=== PATIENT | male | born 1955 | race Caucasian/White ===

== ENCOUNTER 2017-04-07 10:52 | Inpatient (IN) | payer MEDICARE, MEDICAID ==
[2017-04-07] VITALS (7 sets, daily range): BP systolic 117–159; BP diastolic 65–87; PULSE 83–95; RESP 17–22; TEMP 97.8–98.5; O2SAT 96–100
[~2017-04-07] VITALS: Ht 175.3 cm; Wt 141.7 kg
[~2017-04-07 10:52] MED LIST: BUPR-197 PO; CYAN1000P SC; DUONI NEB; KCL20 PO; LEVO.025 PO; LORA-474 PO; LORTA5 PO; NIFE1TAB85 PO; PROT40TA PO
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
[2017-04-07] MEDS ORDERED: SODIUM CHLOR 0.9% 1000 ML INJ 1,000 ML IV ONE (11:30)
[2017-04-07 12:03] LABS: AUTOMATED NEUTROPHIL # 4.8 TH/MM3 (1.8-7.7); BASOPHIL % 0.6 % (0.0-2.0); EOSINOPHIL # 0.1 TH/MM3 (0-0.4); EOSINOPHIL % 2.2 % (0.0-4.0); HEMATOCRIT 44.4 % (39.0-51.0); HEMO FLAGS DIFF FINAL; LYMPH % 15.8 % (9.0-44.0); LYMPHOCYTE # 1.1 TH/MM3 (1.0-4.8); MEAN CELL VOLUME 94.9 FL (80.0-100.0); MEAN CORPUSCULAR HEMOGLOBIN 31.6 PG (27.0-34.0); MEAN CORPUSCULAR HGB CONC 33.3 % (32.0-36.0); MONO % 10.1 % (0.0-8.0); NEUT % 71.3 % (16.0-70.0); PLATELET COUNT 275 TH/MM3 (150-450); RED BLOOD COUNT 4.68 MIL/MM3 (4.50-5.90); RED CELL DISTRIBUTION WIDTH 17.3 % (11.6-17.2); WHITE BLOOD COUNT 6.7 TH/MM3 (4.0-11.0)
--- NOTE | 2017-04-07 12:10 | RADRPT ---
EXAM DATE/TIME: 04/07/2017 11:38 [facility] COMPARISON: CHEST SINGLE AP, July 08, 2015, 7:57. INDICATIONS : Syncope, short of breath. MEDICAL HISTORY : None. SURGICAL HISTORY : None. ENCOUNTER: Initial ACUITY: 1 day PAIN SCORE: 0/10 LOCATION: Bilateral chest FINDINGS: A single view of the chest demonstrates the lungs to be symmetrically aerated without evidence of mas s, infiltrate or effusion. The cardiomediastinal contours are unremarkable. Osseous structures are intact. CONCLUSION: Normal examination. Kenrick Eaton MD on April 07, 2017 at 12:08 Board Certified Radiologist. This report was verified electronically.
[2017-04-07 12:11] LABS: BACTERIA, URINE RARE /hpf; BLOOD, URINE NEG (NEG); COMMENT (UR) CATH-CULTURE IND; CULTURE IF INDICATED CATH CULTURE IND; GLUCOSE,URINE NEG (NEG); HYALINE CAST, URINE 9 /lpf (RARE); KETONE, URINE NEG (NEG); MUCUS URINE FEW /lpf (OCC); NITRITE,URINE NEG (NEG); SQUAMOUS EPITHELIAL CELL URINE <1 /hpf (0-5); URINE COLOR LIGHT-YELLOW (YELLW/STRAW)
[2017-04-07 12:14] LABS: APTT (PATIENT) 35.2 SEC (24.3-30.1); INTERNATIONAL NORMALIZED RATIO 1.1 RATIO; PROTHROMBIN TIME - PATIENT 12.4 SEC (9.8-11.6)
[2017-04-07 12:19] LABS: ANION GAP 8 MEQ/L (5-15); AST (GOT) 13 U/L (15-37); BICARBONATE 24.1 MEQ/L (21.0-32.0); BLOOD UREA NITROGEN 8 MG/DL (7-18); CHLORIDE 110 MEQ/L (98-107); GLOMERULAR FILTRATION RATE 95 ML/MIN (>89); MAGNESIUM 2.1 MG/DL (1.5-2.5); POTASSIUM 4.3 MEQ/L (3.5-5.1); SODIUM (NA) 142 MEQ/L (136-145)
[2017-04-07 12:20] LABS: ALT (GPT) 11 U/L (12-78)
[2017-04-07 12:24] LABS: ALKALINE PHOSPHATASE 146 U/L (45-117); TOTAL BILIRUBIN ADULT 0.2 MG/DL (0.2-1.0)
[2017-04-07 12:25] LABS: CREATINE KINASE 81 U/L (39-308)
[2017-04-07] MEDS ORDERED: NORC5TAB PO (12:49)
[2017-04-07] MEDS ORDERED: SYNT25TA PO (12:49)
[2017-04-07] MEDS ORDERED: WELL200T PO (12:49)
[2017-04-07] MEDS ORDERED: VANCOMYCIN INJ 1,000 MG in SODIUM CHLOR 0.9% 250 ML INJ 250 ML IV ONE (13:30)
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
[2017-04-07] MEDS ORDERED: ONDANSETRON HCL 4 MG/2 ML VIAL IVP PRN (15:00)
[2017-04-07] MEDS ORDERED: NALOXONE HCL 0.4 MG/ML AMP IV PUSH PRN (15:00)
[2017-04-07] MEDS ORDERED: LORazepam 2 MG/ML VIAL IV PUSH PRN ×4 (15:15)
[2017-04-07] MEDS ORDERED: FLUMAZENIL 0.5 MG/5 ML VIAL IV PUSH PRN (15:15)
[2017-04-07] MEDS ORDERED: HALOPERIDOL LACTATE 5 MG/ML AMP IM PRN (15:15)
[2017-04-07] MEDS ORDERED: LORazepam 2 MG TAB PO PRN (15:15)
[2017-04-07] MEDS ORDERED: LORazepam 1 MG TAB PO PRN (15:15)
[2017-04-07] MEDS ORDERED: LACTULOSE SYRUP 20 GM/30 ML CUP PO PRN (16:00)
[2017-04-07] MEDS ORDERED: BISACODYL 10 MG SUPP RECTAL PRN (16:00)
[2017-04-07] MEDS ORDERED: NYSTATIN 100,000 U/GM PWD 15 GM BTL TOPICAL ONE (17:30)
--- NOTE | 2017-04-07 17:53 | PD.WCN.NOT ---
Wound Consult Description: Received consult from Doctor Chandra for wound management of Lower extremity Communicated with: VICENTA Wright pod and call placed to Doctor Chandra for orders Recommendation: Please cleanse wounds to L lower extremity with normal saline or wound cleanser and apply optifoam gentle AG over wound beds and secure with rolled gauze and tape. Change dressing every 3 days or PRN if saturated or dislodged. May need podiatry consult for unstable appearing eschar to L medial ankle. Please elevate BLE Additional Information: Patient seen for evaluation of wound management for lower extremity around 1630.Patient laying on stretcher for wound assessment. Blue suzanne is noted under patient's L leg with minimal serous drainage. L medial lower leg wound assessed with jagged poorly defined wound margins. Wound appears partial thickness with minimal serous drainage that has mild odor.Wound measures 5.2 cm x 2cm x ~<0.1cm. Periwound is noted with erythema, edema and heat. L medial ankle wound presents with ~90% covered of thin black eschar. and ~10% pink tissue, wound has minimal sero-sanguinous drainage that has mild odor. Periwound also presents with erythema, heat, and edema. Wound measures 1cm x 2.7cm x eschar. L pettit wound presents with partial thickness skin loss and measures ~1cm x ~ 0.5cm x ~<0.1cm . Minimal serous drainage is noted from wound that is without odor. Periwound is unremarkable. Cleansed all open wounds with normal saline and applied gently adhesive foam dressing with AG over L medial ankle and L medial lower leg wounds. Applied dry 4 x4 gauze pad over L pettit wound and secured dressings with rolled gauze and tape. Recommendations are noted above. J[facility]ing [facility] Apr 07, 2017 17:53
[2017-04-07 20:36] LABS: FREE T4 0.8 NG/DL (0.76-1.46)
[2017-04-07] MEDS ORDERED: MAGNESIUM HYDROXIDE SUSP 30 ML CUP PO PRN (21:00)
[2017-04-07] MEDS ORDERED: SENNOSIDES 8.6 MG TAB PO PRN (21:00)
[2017-04-07] MEDS: HEPARIN SODIUM - SQ 10,000 UNITS/ML VIAL SQ SCH (21:18)
[2017-04-07] MEDS: NYSTATIN 100,000 U/GM PWD 15 GM BTL TOPICAL SCH (21:18)
[2017-04-07] MEDS: DOCUSATE SODIUM 50 MG/SENNA 8.6 MG TAB PO SCH (21:18)
[2017-04-08] MEDS: ACETAMINOPHEN 325 MG TAB PO PRN ×2 (00:03→09:14)
[2017-04-08 03:36] VITALS: BP 136/76; PULSE 76; RESP 18; TEMP 97.8; O2SAT 98
[2017-04-08 04:27] LABS: AUTOMATED NEUTROPHIL # 5.2 TH/MM3 (1.8-7.7); BASOPHIL # 0.1 TH/MM3 (0-0.2); BASOPHIL % 0.8 % (0.0-2.0); EOSINOPHIL # 0.1 TH/MM3 (0-0.4); EOSINOPHIL % 2.1 % (0.0-4.0); HEMO FLAGS DIFF FINAL; LYMPH % 12.4 % (9.0-44.0); LYMPHOCYTE # 0.9 TH/MM3 (1.0-4.8); MEAN CELL VOLUME 94.9 FL (80.0-100.0); MEAN CORPUSCULAR HEMOGLOBIN 32.5 PG (27.0-34.0); MEAN CORPUSCULAR HGB CONC 34.2 % (32.0-36.0); MONO % 12.1 % (0.0-8.0); NEUT % 72.6 % (16.0-70.0); PLATELET COUNT 221 TH/MM3 (150-450); RED BLOOD COUNT 4.11 MIL/MM3 (4.50-5.90); RED CELL DISTRIBUTION WIDTH 16.9 % (11.6-17.2); WHITE BLOOD COUNT 7.1 TH/MM3 (4.0-11.0)
[2017-04-08 04:51] LABS: BICARBONATE 24.7 MEQ/L (21.0-32.0); POTASSIUM 3.8 MEQ/L (3.5-5.1)
[2017-04-08] MEDS: HEPARIN SODIUM - SQ 10,000 UNITS/ML VIAL SQ SCH ×3 (05:58→22:03)
[2017-04-08] MEDS: NYSTATIN 100,000 U/GM PWD 15 GM BTL TOPICAL SCH ×3 (05:58→22:00)
[2017-04-08 08:09] VITALS: O2SAT 100
[2017-04-08] MEDS: FOLIC ACID 1 MG TAB PO SCH (09:00)
[2017-04-08] MEDS: DOCUSATE SODIUM 50 MG/SENNA 8.6 MG TAB PO SCH ×2 (09:00→19:59)
[2017-04-08] MEDS: MULTIVITAMINS/MINERALS THERAPEUTIC TAB PO SCH (09:00)
[2017-04-08] MEDS: THIAMINE HCL 100 MG TAB PO SCH (09:13)
[2017-04-08 09:31] LABS: CALCIUM-PROTEIN CORRECTED 8.7 MG/DL (8.5-10.1)
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
--- NOTE | 2017-04-08 10:50 | RADRPT ---
EXAM DATE/TIME: 04/08/2017 08:03 [facility] COMPARISON: No previous studies available for comparison. INDICATIONS : Left ankle swelling. MEDICAL HISTORY : None. SURGICAL HISTORY : None. ENCOUNTER: Initial ACUITY: 1 day PAIN SCORE: 3/10 LOCATION: Left ankle FINDINGS: There is severe diffuse soft tissue thickening. Numerous soft tissue calcifications throughout the l ower leg region, some are oval with lucent centers and appearance are punctate. Osseous structures a re in normal alignment. No evidence of fracture or dislocation. Large plantar calcaneal spur. Esthela rial calcifications. CONCLUSION: 1. Prominent soft tissue swelling and diffuse soft tissue calcifications. 2. The osseous structures are intact. Hans Etienne MD on April 08, 2017 at 10:17 Board Certified Radiologist. This report was verified electronically.
--- NOTE | 2017-04-08 10:50 | EKG ---
Date Performed: 04/07/2017 Time Performed: 11:33:42 PTAGE: 61 years EKG: Sinus rhythm MODERATE VOLTAGE CRITERIA FOR LVH, CONSIDER NORMAL VARIANT BORDERLINE ECG INTERPRETATION BASED ON A DEFAULT AGE OF 40 YEARS PREVIOUS TRACING : 06/30/2015 11.06 DOCTOR: Giuliano Gonzalez Interpretating Date/Time 04/08/2017 10:48:29
[2017-04-08 11:58] VITALS: BP 138/77; PULSE 74; RESP 18; TEMP 98; O2SAT 96
--- NOTE | 2017-04-08 13:39 | RADRPT ---
EXAM DATE/TIME: 04/08/2017 12:47 [place] COMPARISON: No previous studies available for comparison. INDICATIONS : Bilateral leg swelling. MEDICAL HISTORY : Hypercholesterolemia. Hypertension. Sleep apnea. Arthritis. Depression. Anxiety. SURGICAL HISTORY : Nail left femur and hip pin. ENCOUNTER: Initial ACUITY: >1 year PAIN SCORE: 5/10 LOCATION: Bilateral legs. TECHNIQUE: Venous ultrasound of the left and right leg was performed from the inguinal ligament to the proximal calf. Real-time, color Doppler and spectral tracing, compression and augmentation techniques were us ed. FINDINGS: RIGHT LEG: There is normal compressibility of the deep venous system from the inguinal region to the proximal ca lf. No echogenic clot is seen in the lumen of the common femoral, femoral, popliteal, and posterior tibial veins. There is a normal response of the venous system to proximal and distal augmentation an d respiration. LEFT LEG: There is normal compressibility of the deep venous system from the inguinal region to the proximal ca lf. No echogenic clot is seen in the lumen of the common femoral, femoral, popliteal, and posterior tibial veins. There is a normal response of the venous system to proximal and distal augmentation an d respiration. CONCLUSION: The study is negative for deep venous thrombosis bilateral lower extremity. Hans Etienne MD on April 08, 2017 at 13:37 Board Certified Radiologist. This report was verified electronically.
--- NOTE | 2017-04-08 13:54 | PD.PSY.CON ---
Provisional Diagnosis Admission Date Apr 07, 2017 at 14:24 Kendall I. Adjustment disorder with depression versus major depressive disorder, first episode, severe without psycho Kendall II. Deferred Kendall III. Morbid obesity, hypertension, cellulitis History of Present Illness Service Psychiatry Consult Requested By ER team Reason for Consult Depression Primary Care Physician No Primary Care Physician HPI The patient is a 61-year-old obese man, domiciled alone in [facility] , recently , supported by [facility], without no previous psychiatric history, no previous psychiatric hospitalizations, no previous suicidal attempts, medical history of morbid obesity, alcohol abuse, hypothyroidism, chronic lower extremity edema, MU noncompliant with CPAP, gastric bypass, presents after a fall with weakness. The patient reports he was previously at [facility] 2 months ago but is now living at home alone. He states this morning he fell down on his knees then "crumbled" down to the floor on his buttocks. He was unable to ambulate off the floor. He denies hitting his head or any loss of consciousness. Denies any lightheadedness, dizziness, chest pain, palpitations, or shortness of breath prior to the episode. He called his mom who lives next door and then called 911. He denies any specific injuries or pain. He states he normally can ambulate with a walker. He admits he has not been able take care of himself lately. He reports increasing lower extremity edema worse than his baseline. Denies any history of CHF or CAD. He does not take any diuretics or wear compression stockings. He denies seeing any microfilm processor in the past. He states he hasn't been taking any medications in 2 months since he's been discharged from the senior care. He agrees he likely needs SNF placement. Consulted to psychiatry due to symptomatology of depression. Psychiatric evaluation patient is irritable, demanding, he stated that he doesn't trust the nurses here, he feels disrespected, he doesn't like the staff of the hospital in general. Patient reports symptoms of depression for the last 3 months. He says that he went to a very hard process of divorce, his life has been deteriorating, and he has been feeling progressively and increasingly depressed with the days. Patient reports sensation of hopelessness, helplessness, he is no enjoying his usual enjoyable activities, he feels worthless, he has an increased sensitivity to rejection and frustration, frequent mood swings, but the most important and frequent suicidal thoughts, but not specific plan. He says that he doesn't want to and he does want to kill himself. He says that he has a daughter that he love and he doesn't want that his legacy is a suicide, but he feels very overwhelmed and he doesn't know what to do. Patient is willing to accept treatment for depression inpatient if possible. He contracted for safety in the hospital. He denies visual and auditory hallucinations. He is fully oriented 3, no attention deficit, no fluctuation of consciousness, no gross cognitive impairment present. Reports almost daily use of alcohol, usually 1 or 2 cups of wine, but he denies the use of illegal drugs. Review of Systems Constitutional: DENIES: Diaphoretic episodes, Fatigue, Fever, Weight gain, Weight loss, Chills, Dizziness, Change in appetite, Night Sweats Endocrine: DENIES: Heat/cold intolerance, Polydipsia, Polyuria, Polyphagia Ears, nose, mouth, throat: DENIES: Tinnitus, Hearing loss, Vertigo, Nasal discharge, Oral lesions, Throat pain, Hoarseness, Ear Pain, Running Nose, Epistaxis, Sinus Pain, Toothache, Odynophagia Respiratory: DENIES: Apneas, Cough, Snoring, Wheezing, Hemoptysis, Sputum production, Shortness of breath Cardiovascular: DENIES: Chest pain, Palpitations, Syncope, Dyspnea on Exertion , PND, Lower Extremity Edema, Orthopnea, Claudication Gastrointestinal: DENIES: Abdominal pain, Black stools, Bloody stools, Constipation, Diarrhea, Nausea, Vomiting, Difficulty Swallowing, Anorexia Genitourinary: DENIES: Sexual dysfunction, Urinary frequency, Urinary incontinence, Urgency, Hematuria, Dysuria, Nocturia, Penile Discharge, Testicular Pain, Testicular Swelling Musculoskeletal: DENIES: Joint pain, Muscle aches, Stiffness, Joint Swelling, Back pain, Neck pain Integumentary: DENIES: Abnormal pigmentation, Nail changes, Pruritus, Rash Hematologic/lymphatic: DENIES: Bruising, Lymphadenopathy Immunologic/allergic: DENIES: Eczema, Urticaria Neurologic: DENIES: Abnormal gait, Headache, Localized weakness, Paresthesias, Seizures, Speech Problems, Tremor, Poor Balance Psychiatric: COMPLAINS OF: Mood changes, Depression, DENIES: Anxiety, Confusion , Hallucinations, Agitation, Suicidal Ideation, Homicidal Ideation, Delusions Past Family Social History Coded Allergies: No Known Allergies (Verified Allergy, Unknown, 04/07/17) Reported Medications Levothyroxine (Synthroid) 25 Mcg Tab, 25 MCG PO DAILY for Thyroid, #30 TAB 0 Refills 04/07/17 Hydrocodone-Acetaminophen ([place]) 5 Mg-325 Mg Tab, 1 TAB PO Q6H Y for PAIN, TAB 0 Refills 04/07/17 Bupropion HCl ER 12 HR (Wellbutrin SR 12 HR) 200 Mg Tab, 200 MG PO Q12HR for Control Depression, TAB 0 Refills 04/07/17 Current Medications Medications (Trade) Dose Ordered Sig/Ezequiel Route Start Time Stop Time Status Last Admin (Tylenol) 650 mg Q4H PRN PO 04/07/17 15:00 04/08/17 09:14 (Zofran Inj) 4 mg Q6H PRN IVP 04/07/17 15:00 (Heparin Inj) 5,000 units Q8HR SQ 04/07/17 22:00 04/08/17 13:46 (Narcan Inj) 0.4 mg UNSCH PRN IV PUSH 04/07/17 15:00 (Celeste-Colace) 1 tab BID PO 04/07/17 21:00 04/08/17 09:00 (Milk Of Magnesia Liq) 30 ml Q12HR PRN PO 04/07/17 21:00 (Senokot) 17.2 mg Q12HR PRN PO 04/07/17 21:00 (Dulcolax Supp) 10 mg DAILY PRN RECTAL 04/07/17 16:00 (Lactulose Liq) 30 ml DAILY PRN PO 04/07/17 16:00 (Folate) 1 mg DAILY PO 04/08/17 09:00 04/13/17 08:59 04/08/17 09:00 (Vitamin B1) 100 mg DAILY PO 04/08/17 09:00 04/08/17 09:13 (Theragran M Tab) 1 tab DAILY PO 04/08/17 09:00 04/13/17 08:59 04/08/17 09:00 (Romazicon Inj) 0.2 mg Q1M PRN IV PUSH 04/07/17 15:15 (Ativan) 1 mg Q4H PRN PO 04/07/17 15:15 (Ativan Inj) 1 mg Q4H PRN IV PUSH 04/07/17 15:15 (Ativan) 2 mg Q2H PRN PO 04/07/17 15:15 (Ativan Inj) 2 mg Q2H PRN IV PUSH 04/07/17 15:15 (Ativan Inj) 2 mg Q1H PRN IV PUSH 04/07/17 15:15 (Ativan Inj) 2 mg Q15M PRN IV PUSH 04/07/17 15:15 (Haldol Inj) 2 mg Q15M PRN IM 04/07/17 15:15 (Mycostatin Powder) 1 applic Q8HR TOPICAL 04/07/17 22:00 04/08/17 13:46 (Sensi-Care Protective Barrier Oint) 1 applic DAILY TOPICAL 04/08/17 21:00 Pharmacy Profile Note 0 ml @ 0 mls/hr UNSCH OTHER 04/08/17 14:00 UNV Vancomycin HCl 2250 mg/Sodium Chloride 522.5 ml @ 250 mls/hr Q12H IV 04/08/17 14:00 UNV Piperacillin Sod/ Tazobactam Sod 100 ml @ 200 mls/hr Q6H IV 04/08/17 14:00 UNV Family Psych History He denies family psychiatric history Social History Patient was born and raised in [place], he lives in [facility], his recent divorce, unemployed, on SSI, highest level of education is some college, 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 2) No previous psychiatric history Physical Exam He s obese, hypoactive, but no withdrawal, no EPS, no stiffness present, he walks with a walker Vital Signs Vital Signs Date Time Temp Pulse Resp B/P (MAP) Pulse Ox O2 Delivery O2 Flow Rate FiO2 04/08/17 11:58 98.0 74 18 138/77 (97) 96 04/08/17 08:09 21 04/07/17 12:30 Room Air Lab Results Test 04/07/17 19:39 04/08/17 03:41 Erythrocyte Sedimentation Rate 34 mm/hr C-Reactive Protein 5.20 MG/DL Free Thyroxine 0.80 NG/DL Thyroid Stimulating Hormone 3rd Gen 1.860 uIU/ML White Blood Count 7.1 TH/MM3 Red Blood Count 4.11 MIL/MM3 Hemoglobin 13.4 GM/DL Hematocrit 39.0 % Mean Corpuscular Volume 94.9 FL Mean Corpuscular Hemoglobin 32.5 PG Mean Corpuscular Hemoglobin Concent 34.2 % Red Cell Distribution Width 16.9 % Platelet Count 221 TH/MM3 Mean Platelet Volume 6.7 FL Neutrophils (%) (Auto) 72.6 % Lymphocytes (%) (Auto) 12.4 % Monocytes (%) (Auto) 12.1 % Eosinophils (%) (Auto) 2.1 % Basophils (%) (Auto) 0.8 % Neutrophils # (Auto) 5.2 TH/MM3 Lymphocytes # (Auto) 0.9 TH/MM3 Monocytes # (Auto) 0.9 TH/MM3 Eosinophils # (Auto) 0.1 TH/MM3 Basophils # (Auto) 0.1 TH/MM3 CBC Comment DIFF FINAL Differential Comment Blood Urea Nitrogen 11 MG/DL Creatinine 0.67 MG/DL Random Glucose 90 MG/DL Calcium Level 7.9 MG/DL Sodium Level 143 MEQ/L Potassium Level 3.8 MEQ/L Chloride Level 112 MEQ/L Carbon Dioxide Level 24.7 MEQ/L Anion Gap 6 MEQ/L Estimat Glomerular Filtration Rate 121 ML/MIN Protein Corrected Calcium 8.7 MG/DL Total Protein 5.9 GM/DL Date/Time Source Procedure Growth Status 04/07/17 11:36 Blood Peripheral Aerobic Blood Culture - Preliminary NO GROWTH IN 1 DAY Resulted 04/07/17 11:36 Blood Peripheral Anaerobic Blood Culture - Preliminary NO GROWTH IN 1 DAY Resulted 04/07/17 11:30 Urine Catheterized Urine Urine Culture - Preliminary NO GROWTH IN 24 HOURS. Resulted Mental Status Examination Appearance: Appropriate Consciousness: Alert Orientation: x4 Motor Activity: Normal gait Speech: Unremarkable Language: Adequate Fund of Knowledge: Adequate Attention and Concentration: Adequate Memory: Unremarkable Mood: Sad, Irritable Affect: Sad Thought Process & Associations: Intact Thought Content: Appropriate Hallucination Type: None Delusion Type: None Suicidal Ideation: Yes Suicidal Plan: No Suicidal Intention: No Homicidal Ideation: No Homicidal Plan: No Homicidal Intention: No Insight: Adequate Judgment: Adequate Assessment & Plan Problem List: (1) Adjustment disorder with depressed mood ICD Codes: F43.21 - Adjustment disorder with depressed mood Assessment & Plan: Patient presents with symptomatology of depression for about 3 months in the context of recent with his and medical deterioration. He reports increased anhedonia, hopelessness, helplessness, lack of motivation, no enjoying usually enjoyable activities, poor concentration and energy, decrease to sleep at night, suicidal ideation without a specific plan. Patient was able to contract for safety in the ER. Patient is willing to be admitted in psychiatry voluntarily for treatment of depression. I will start trazodone 50 mg at bedtime to help with depression and insomnia. CIWA protocol. Brief supportive psychotherapy provided. No collateral information available at this moment. Case discussed with nurse in charge. Transfer to psychiatry, med psych unit. Assessment & Plan Estimated LOS: Conrad Michael MD Apr 08, 2017 13:54
--- NOTE | 2017-04-08 13:55 | HHI.PR ---
Subjective Remarks Feeling extremely tired and sad he asked for psychiatry to see him I also discussed with the podiatry afebrile Objective Vitals Vital Signs Date Time Temp Pulse Resp B/P (MAP) Pulse Ox O2 Delivery O2 Flow Rate FiO2 04/08/17 11:58 98.0 74 18 138/77 (97) 96 04/08/17 11:55 20 04/08/17 08:09 100 21 04/08/17 03:36 97.8 76 18 136/76 (96) 98 04/07/17 23:56 98.5 87 19 140/67 (91) 96 04/07/17 19:45 98.3 95 19 159/86 (110) 98 04/07/17 16:45 98.4 84 22 117/65 (82) 97 04/07/17 16:00 97.8 81 18 138/82 (100) 100 I/O 04/07/17 04/07/17 04/07/17 04/08/17 04/08/17 04/08/17 07:00 15:00 23:00 07:00 15:00 23:00 Intake Total 1550 ml Balance 1550 ml Intake Oral 300 ml IV Total 1250 ml # Voids 1 # Bowel Movements 0 Result Diagram: 04/08/1734004/08/17340 Objective Remarks GENERAL: Well-nourished, well-developed morbidly obese middle aged unkempt appearing male patient in [facility]. SKIN: Warm and dry. No rash. HEAD: Normocephalic. Atraumatic. EYES: Pupils equal and round. No scleral icterus. No injection or drainage. ENT: No nasal bleeding or discharge. Mucous membranes dry. Poor oral/dental hygiene. NECK: Supple. Trachea midline. CARDIOVASCULAR: Regular rate and rhythm. S1, S2 noted. No murmur appreciated. RESPIRATORY: No accessory muscle use. Clear to auscultation. Breath sounds equal bilaterally. GASTROINTESTINAL: Abdomen soft, non-tender, nondistended. Normoactive bowel sounds x4. MUSCULOSKELETAL: No obvious deformities. 3+ BLE edema with chronic venous stasis dermatitis, mild erythema. NEUROLOGICAL: Awake and alert. No obvious cranial nerve deficits. Motor grossly within normal limits. Moving all extremities spontaneously, generalized lower extremity weakness. Normal speech. PSYCHIATRIC: Appropriate mood and affect; insight and judgment normal. A/P Problem List: (1) Falls ICD Code: W19.XXXA - Unspecified fall, initial encounter Status: Acute (2) General weakness ICD Code: R53.1 - Weakness Status: Acute Assessment and Plan 61-year-old male with history of morbid obesity, alcohol abuse, hypothyroidism, depression, chronic lower extremity edema, MU noncompliant with CPAP, gastric bypass, presents after a fall with weakness. Fall, Generalized Weakness, Inability to Care for Self: suspect multifactorial with chronic deconditioning, alcohol abuse, extensive BLE edema, morbid obesity. CXR images reviewed, no acute findings. -Consult PT/OT -patient found in urine/feces, extremely poor hygiene, likely needs placement -case management consulted Chronic Venous Stasis Dermatitis: possible cellulitis reported by ER, s/p IV Vanco x1, however clinically no significant signs of cellulitis, afebrile, no leukocytosis -Reviewed ESR/CRP, elevated -We'll start broad coverage with Zosyn and Vanco -apply isabel hose -Wound care and podiatry consultation appreciated, I discussed with Dr. Montgomery recommended vascular study and antibiotic coverage Morbid Obesity: Patient weighs 150kg, BMI 48.8. Patient is already s/p bariatric surgery with gastric bypass. -counseled on weight reduction -heart healthy diet Hypothyroidism: has not been taking Synthroid x2 months. -TSH WNL -restart Synthroid if indicated Alcohol Abuse: patient reports drinking 1 L of wine nightly -counseled on cessation -start on thiamine/folate/MV -CIWA protocol with ativan prn -seizure precautions DVT Prophylaxis: Heparin SQ, Vivien Celaya MD Apr 08, 2017 13:55
[2017-04-08] MEDS ORDERED: VANCOMYCIN INJ 2,250 MG in SODIUM CHLORID 0.9% 500 ML INJ 500 ML IV SCH (14:00)
[2017-04-08] MEDS: PIPERACIL-TAZO 4.5 GM PREMIX 100 ML IV SCH ×2 (14:00→20:00)
[2017-04-08] MEDS ORDERED: Vancomycin Consult Pharmacy 1 EA OTHER SCH (14:00)
[2017-04-08 16:41] VITALS: BP 167/93; PULSE 91; RESP 20; TEMP 98.5
[2017-04-08] MEDS ORDERED: LORazepam 2 MG/ML VIAL IM PRN (16:45)
[2017-04-08] MEDS ORDERED: MAGNESIUM HYDROXIDE SUSP 30 ML CUP PO PRN (16:45)
[2017-04-08] MEDS ORDERED: ALUMINUM/MAGNESIUM/SIMETH 30 ML CUP PO PRN (16:45)
[2017-04-08] MEDS ORDERED: LORazepam 2 MG TAB PO PRN (17:00)
[2017-04-08] MEDS ORDERED: FLUMAZENIL 0.5 MG/5 ML VIAL IV PUSH PRN (17:00)
[2017-04-08] MEDS ORDERED: LORazepam 2 MG/ML VIAL IV PUSH PRN ×4 (17:00)
[2017-04-08] MEDS ORDERED: LORazepam 1 MG TAB PO PRN (17:00)
[2017-04-08] MEDS: VANCOMYCIN INJ 1,700 MG in SODIUM CHLORID 0.9% 500 ML INJ 500 ML IV SCH ×2 (17:19→23:23)
[2017-04-08 17:58] VITALS: BP 167/93; PULSE 91; TEMP 98.5; O2SAT 96
[2017-04-08 19:20] VITALS: O2SAT 99
[2017-04-08] MEDS: ACETAMINOPHEN/HYDROcodone 325 MG/5 MG TAB PO PRN (19:58)
[2017-04-08] MEDS: LORazepam 1 MG TAB PO PRN (19:58)
[2017-04-08] MEDS: PETROLATUM 49%/ZINC OXIDE 15% 4 OUNCE TUBE TOPICAL SCH (21:00)
[2017-04-08] MEDS ORDERED: traZODone HCL 50 MG TAB PO SCH (21:00)
[2017-04-09] MEDS: ACETAMINOPHEN/HYDROcodone 325 MG/5 MG TAB PO PRN ×3 (02:05→14:53)
[2017-04-09] MEDS: HEPARIN SODIUM - SQ 10,000 UNITS/ML VIAL SQ SCH ×3 (06:00→21:46)
[2017-04-09] MEDS: NYSTATIN 100,000 U/GM PWD 15 GM BTL TOPICAL SCH ×3 (06:00→22:00)
[2017-04-09] MEDS: LEVOTHYROXINE SODIUM 25 MCG TAB PO SCH (06:00)
[2017-04-09 06:22] LABS: ANION GAP 7 MEQ/L (5-15); BICARBONATE 25.3 MEQ/L (21.0-32.0); BLOOD UREA NITROGEN 14 MG/DL (7-18); CHLORIDE 110 MEQ/L (98-107); GLOMERULAR FILTRATION RATE 106 ML/MIN (>89); POTASSIUM 3.7 MEQ/L (3.5-5.1); SODIUM (NA) 142 MEQ/L (136-145)
[2017-04-09 06:24] VITALS: BP 133/68; PULSE 73; RESP 16; TEMP 97.7; O2SAT 96
[2017-04-09 06:25] LABS: HDL CHOLESTEROL 43.3 MG/DL (40.0-60.0); LDL CHOLESTEROL 61 MG/DL (0-99)
[2017-04-09] MEDS: PIPERACIL-TAZO 4.5 GM PREMIX 100 ML IV SCH ×3 (08:00→13:57)
[2017-04-09] MEDS: THIAMINE HCL 100 MG TAB PO SCH (08:20)
[2017-04-09] MEDS: FOLIC ACID 1 MG TAB PO SCH (08:20)
[2017-04-09] MEDS: PETROLATUM 49%/ZINC OXIDE 15% 4 OUNCE TUBE TOPICAL SCH (08:20)
[2017-04-09] MEDS: MULTIVITAMINS/MINERALS THERAPEUTIC TAB PO SCH (08:20)
[2017-04-09] MEDS: DOCUSATE SODIUM 50 MG/SENNA 8.6 MG TAB PO SCH ×2 (08:20→21:44)
--- NOTE | 2017-04-09 11:26 | HHI.HP ---
Provisional Diagnosis Admission Date Apr 08, 2017 at 16:54 [place] I. Adjustment disorder with depression versus major depressive disorder, first episode, severe without psycho [place] II. Deferred [place] III. Morbid obesity, hypertension, cellulitis Certification of Person's Competence To Provide Express and Informed Consent I have personally examined Markos LazaroJr , a person being served at [facility] on, Apr 09, 2017 11:10. Express and informed consent means consent voluntarily given in writing, by a competent person, after sufficient explanation and disclosure of the subject matter involved to enable the person to make a knowing and willful decision without any element of force, fraud, deceit, duress, or other form of constraint or coercion. This person is 18 years of age or older, is not now known to be incompetent to consent to treatment with a guardian advocate, and does not have a health care surrogate or proxy currently making medical treatment decisions. I have found this person to be one of the following: [x] Competent to provide express and informed consent, as defined above, for voluntary admission to this facility and is competent to provide express and informed consent for treatment. He/she has the consistent capacity to make well reasoned, willful, and knowing decisions concerning his or her medical or mental health treatment. The person fully and consistently understands the purpose of the admission for examination/placement and is fully capable of personally exercising all rights assured under [place] Incompetent to provide express and informed consent to voluntary admission, and this is incompetent to provide express and informed consent to treatment. The person must be transferred to involuntary status and a petition for a guardian advocate filed with the Circuit Court. [] Refusing to provide express and informed consent to voluntary admission but is competent to provide express and informed consent for treatment. The person must be discharged or transferred to involuntary status. Form shall be completed within 24 hours of a person's arrival at the receiving facility and filed in the clinical record of each person: 1. Admitted on a voluntary basis 2. Permitted to provide express and informed consent to his/her own treatment 3. Allowed to transfer from involuntary to voluntary status 4. Prior to permitting a person to consent to his or her own treatment after having been previously found incompetent to consent to treatment. History of Present Illness Capacity: Has Capacity HPI The patient is a 61-year-old obese man, domiciled alone in [facility] , recently , supported by [facility], without no previous psychiatric history, no previous psychiatric hospitalizations, no previous suicidal attempts, medical history of morbid obesity, alcohol abuse, hypothyroidism, chronic lower extremity edema, MU noncompliant with CPAP, gastric bypass, presents after a fall with weakness. The patient reports he was previously at [facility] 2 months ago but is now living at home alone. He states this morning he fell down on his knees then "crumbled" down to the floor on his buttocks. He was unable to ambulate off the floor. He denies hitting his head or any loss of consciousness. Denies any lightheadedness, dizziness, chest pain, palpitations, or shortness of breath prior to the episode. He called his mom who lives next door and then called 911. He denies any specific injuries or pain. He states he normally can ambulate with a walker. He admits he has not been able take care of himself lately. He reports increasing lower extremity edema worse than his baseline. Denies any history of CHF or CAD. He does not take any diuretics or wear compression stockings. He denies seeing any roofing machine operator in the past. He states he hasn't been taking any medications in 2 months since he's been discharged from the halfway. He agrees he likely needs SNF placement. Consulted to psychiatry due to symptomatology of depression. Psychiatric evaluation patient is irritable, demanding, he stated that he doesn't trust the nurses here, he feels disrespected, he doesn't like the staff of the hospital in general. Patient reports symptoms of depression for the last 3 months. He says that he went to a very hard process of divorce, his life has been deteriorating, and he has been feeling progressively and increasingly depressed with the days. Patient reports sensation of hopelessness, helplessness, he is no enjoying his usual enjoyable activities, he feels worthless, he has an increased sensitivity to rejection and frustration, frequent mood swings, but the most important and frequent suicidal thoughts, but not specific plan. He says that he doesn't want to and he does want to kill himself. He says that he has a daughter that he love and he doesn't want that his legacy is a suicide, but he feels very overwhelmed and he doesn't know what to do. Patient is willing to accept treatment for depression inpatient if possible. He contracted for safety in the hospital. He denies visual and auditory hallucinations. He is fully oriented 3, no attention deficit, no fluctuation of consciousness, no gross cognitive impairment present. Reports almost daily use of alcohol, usually 1 or 2 cups of wine, but he denies the use of illegal drugs. 04/09/17 Patient is a 61-year-old man, recent divorce, unemployed on SSI, domiciled alone, with a past psychiatric history of alcohol use disorder, no prior psychiatric hospitalizations, no prior suicide attempts or self-injurious behavior with a past medical history of morbid obesity, hypothyroidism, chronic lower extremity edema, MU, gastric bypass, who was admitted to the medical unit for recent fall and generalized weakness which psychiatry was consulted for evaluation of depression and was recommended the patient be transferred to the inpatient psychiatry unit for further evaluation and management for the same. Patient was found sitting in hospital bed working with physical therapy and was able to walk self to the wheelchair and was calm and cooperative with nurse repairer typewriter and therapist. Patient states that he has been having difficulty with depression and recent feelings of helplessness increasing depression and thoughts of not wanting to be alive. Patient reports that he has been recently and had been having difficult time coping with his divorce as well as feeling lonely. Patient also mentions having been at a [facility] facility for 2 months and was subsequently discharged back home which she had been having difficulty managing without assistance. Patient states that he really needs to be an established pressure facility such as the when he left but was unsure whether he will be welcome back as he mentioned has had recent arguments with personnel there. Patient states that he would like to be apologetic with them if they were accepting him back. Patient states for the past couple of weeks he had been having decreased sleep, energy and concentration along with worsening depressive mood, feeling helpless but denies feeling hopeless. Patient denies any active thoughts of wine to end his life but does report having thoughts of not wanting to be alive stating feeling "what 's the use". Patient reports having daily alcohol use for the past year stated that he was using alcohol to cope with this current depression. Patient states "when things stop mattering the world is just a big blur". Patient at this time reports feeling sad, depressed, out of control, numb, continues with suicidal ideation, denies HI, AVH or delusions at this time. Past psychiatric history: Denies any previous psychiatric diagnoses, alcohol use disorder, denies previous psychiatric hospitalizations, suicide attempts or self-injurious behavior. Patient denies any history of abuse. Patient reports having been on antidepressant in the past but was unable to recall the name. Patient reports having seen a therapist at this recent SNF wasn't twice a week but feels he was not receiving useful therapy from it. Substance use history: Alcohol use daily about 1 L of alcohol for the past 1-2 months, remote marijuana use, denies use of any other substance. Denies previous detox or rehabilitation programs. Past medical history: morbid obesity, hypothyroidism, chronic lower extremity edema, UM, gastric bypass Allergies: NKDA Social history: Recently , domiciled alone, unemployed on SSI, recently left a [facility] facility with a duration of 2 months but had left back home 1-2 months ago. Patient was born and raised in [place], currently living in the [place]. Highest education is college. Past Psych History Psychological trauma history Denies Violence risk - others (6 mos) Low Violence risk - self (6 mos) Elevated due to recent depressive symptoms and suicidal ideations. Substance Abuse History Drugs/Alcohol past 12 months Alcohol use daily about 1 L of alcohol for the past 1-2 months, remote marijuana use, denies use of any other substance. Denies previous detox or rehabilitation programs Past Family Social History Coded Allergies: No Known Allergies (Verified Allergy, Unknown, 04/07/17) Reported Medications Levothyroxine (Synthroid) 25 Mcg Tab, 25 MCG PO DAILY for Thyroid, #30 TAB 0 Refills 04/07/17 Hydrocodone-Acetaminophen (Wildomar) 5 Mg-325 Mg Tab, 1 TAB PO Q6H Y for PAIN, TAB 0 Refills 04/07/17 Bupropion HCl ER 12 HR (Wellbutrin SR 12 HR) 200 Mg Tab, 200 MG PO Q12HR for Control Depression, TAB 0 Refills 04/07/17 Current Medications Medications (Trade) Dose Ordered Sig/Ezequiel Route Start Time Stop Time Status Last Admin (Tylenol) 650 mg Q4H PRN PO 04/07/17 15:00 04/08/17 09:14 (Zofran Inj) 4 mg Q6H PRN IVP 04/07/17 15:00 (Heparin Inj) 5,000 units Q8HR SQ 04/07/17 22:00 04/09/17 06:00 (Narcan Inj) 0.4 mg UNSCH PRN IV PUSH 04/07/17 15:00 (Celeste-Colace) 1 tab BID PO 04/07/17 21:00 04/09/17 08:20 (Milk Of Magnesia Liq) 30 ml Q12HR PRN PO 04/07/17 21:00 (Senokot) 17.2 mg Q12HR PRN PO 04/07/17 21:00 (Dulcolax Supp) 10 mg DAILY PRN RECTAL 04/07/17 16:00 (Lactulose Liq) 30 ml DAILY PRN PO 04/07/17 16:00 (Folate) 1 mg DAILY PO 04/08/17 09:00 04/13/17 08:59 04/09/17 08:20 (Vitamin B1) 100 mg DAILY PO 04/08/17 09:00 04/09/17 08:20 (Theragran M Tab) 1 tab DAILY PO 04/08/17 09:00 04/13/17 08:59 04/09/17 08:20 (Mycostatin Powder) 1 applic Q8HR TOPICAL 04/07/17 22:00 04/09/17 06:00 (Sensi-Care Protective Barrier Oint) 1 applic DAILY TOPICAL 04/08/17 21:00 04/09/17 08:20 Pharmacy Profile Note 0 ml @ 0 mls/hr UNSCH OTHER 04/08/17 14:00 Piperacillin Sod/ Tazobactam Sod 100 ml @ 200 mls/hr Q6H IV 04/08/17 14:00 04/09/17 08:00 (Desyrel) 50 mg HS PO 04/08/17 21:00 04/08/17 19:59 Vancomycin HCl 1700 mg/Sodium Chloride 517 ml @ 258.5 mls/ hr Q12H IV 04/08/17 17:00 04/08/17 23:23 Miscellaneous Information SPECIFIC LAB TO BE GUANAKO... ONCE ONCE .XX 04/10/17 04:45 04/10/17 04:46 (Ativan) 1 mg Q6H PRN PO 04/08/17 16:45 04/08/17 19:58 (Ativan Inj) 1 mg Q6H PRN IM 04/08/17 16:45 (Tylenol) 650 mg Q4H PRN PO 04/08/17 16:45 (Milk Of Magnesia Liq) 30 ml DAILY PRN PO 04/08/17 16:45 (Mag-Al Plus Susp Liq) 30 ml Q6H PRN PO 04/08/17 16:45 (Synthroid) 25 mcg DAILY@0600 PO 04/09/17 06:00 04/09/17 06:00 (Ativan) 1 mg Q4H PRN PO 04/08/17 17:00 (Ativan Inj) 1 mg Q4H PRN IV PUSH 04/08/17 17:00 (Ativan) 2 mg Q2H PRN PO 04/08/17 17:00 (Ativan Inj) 2 mg Q2H PRN IV PUSH 04/08/17 17:00 (Ativan Inj) 2 mg Q1H PRN IV PUSH 04/08/17 17:00 (Ativan Inj) 2 mg Q15M PRN IV PUSH 04/08/17 17:00 (Romazicon Inj) 0.2 mg Q1M PRN IV PUSH 04/08/17 17:00 (Wildomar 5-325 Mg) 1 tab Q6H PRN PO 04/08/17 17:15 04/09/17 08:20 Social History Recently , domiciled alone, unemployed on SSI, recently left a [facility] facility with a duration of 2 months but had left back home 1-2 months ago. Patient was born and raised in [place], currently living in the [place]. Highest education is college Patient's Strengths (min. 2) Verbal and communicative Physical Exam Patient not noted to be in acute distress, no gross motor abnormalities, noted to have lower extremity edema bilaterally, no tremors or EPS, no noted psychomotor retardation or agitation. Vital Signs Vital Signs Date Time Temp Pulse Resp B/P (MAP) Pulse Ox O2 Delivery O2 Flow Rate FiO2 04/09/17 06:24 97.7 73 16 133/68 (89) 96 04/08/17 19:20 21 04/07/17 12:30 Room Air I/O 04/09/17 04/09/17 04/10/17 08:00 16:00 00:00 Intake Total 480 ml Output Total 1100 ml Balance -620 ml Lab Results Labs reviewed. Test 04/09/17 04:08 Blood Urea Nitrogen 14 MG/DL Creatinine 0.75 MG/DL Random Glucose 85 MG/DL Calcium Level 7.6 MG/DL Sodium Level 142 MEQ/L Potassium Level 3.7 MEQ/L Chloride Level 110 MEQ/L Carbon Dioxide Level 25.3 MEQ/L Anion Gap 7 MEQ/L Estimat Glomerular Filtration Rate 106 ML/MIN Triglycerides Level 68 MG/DL Cholesterol Level 118 MG/DL LDL Cholesterol 61 MG/DL HDL Cholesterol 43.3 MG/DL Cholesterol/HDL Ratio 2.72 RATIO Date/Time Source Procedure Growth Status 04/07/17 11:36 Blood Peripheral Aerobic Blood Culture - Preliminary NO GROWTH IN 2 DAYS Resulted 04/07/17 11:36 Blood Peripheral Anaerobic Blood Culture - Preliminary NO GROWTH IN 2 DAYS Resulted 04/07/17 11:30 Urine Catheterized Urine Urine Culture - Final NO GROWTH IN 48 HOURS. Complete Mental Status Examination Appearance: Appropriate Consciousness: Alert Orientation: x4 Motor Activity: Normal gait Speech: Unremarkable Language: Adequate Fund of Knowledge: Adequate Attention and Concentration: Adequate Memory: Unremarkable Mood: Sad Affect: Sad Thought Process & Associations: Intact, Linear Thought Content: Appropriate Hallucination Type: None Delusion Type: None Suicidal Ideation: Yes Suicidal Plan: No Suicidal Intention: No Homicidal Ideation: No Homicidal Plan: No Homicidal Intention: No Insight: Fair Judgment: Adequate Assessment & Plan Problem List: (1) Adjustment disorder with depressed mood ICD Codes: F43.21 - Adjustment disorder with depressed mood Assessment & Plan Patient is a 61-year-old man with no previous psychiatric history, multiple chronic medical illnesses, recent alcohol daily use who currently endorses multiple depressive symptoms along with suicidal ideations at this time. We'll start Effexor XR 75 mg by mouth once now with upper titration to 150 mg by mouth daily starting tomorrow. We will increase trazodone to 100 mg by mouth at bedtime for insomnia. Continue to monitor mood and behavior. Recommendations as per primary medical team. Discharge planning in progress Discharge Planning Patient to be referred to a [facility] facility once psychiatrically stable Tc Higuera MD Apr 09, 2017 11:26
[2017-04-09] MEDS ORDERED: VENLAFAXINE HCL XR 37.5 MG CAP PO ONE (11:30)
--- NOTE | 2017-04-09 13:20 | EKG ---
Date Performed: 04/09/2017 Time Performed: 09:13:46 PTAGE: 61 years EKG: Sinus rhythm Since previous tracing, no significant change noted NORMAL ECG PREVIOUS TRACING : 04/07/2017 11.33 DOCTOR: Colt Palacio Interpretating Date/Time 04/09/2017 13:17:57
--- NOTE | 2017-04-09 14:25 | HHI.PR ---
Subjective Remarks awake and alert d/w staff nurse- does not do much- ask staff to do everything for him fair appetite Objective Vitals Vital Signs Date Time Temp Pulse Resp B/P (MAP) Pulse Ox O2 Delivery O2 Flow Rate FiO2 04/09/17 06:24 97.7 73 16 133/68 (89) 96 04/08/17 19:20 99 21 04/08/17 17:58 98.5 91 167/93 (117) 96 04/08/17 16:41 98.5 91 20 167/93 (117) I/O 04/08/17 04/08/17 04/08/17 04/09/17 04/09/17 04/09/17 06:59 14:59 22:59 06:59 14:59 22:59 Intake Total 240 ml 500 ml 480 ml 240 ml Output Total 1100 ml Balance 240 ml 500 ml -620 ml 240 ml Intake Oral 240 ml 480 ml 240 ml IV Total 500 ml Output Urine Total 1100 ml Result Diagram: 04/08/17 0341 04/09/17 0408 Imaging Last Impressions Lower Extremity Ultrasound 04/08/17 0000 Signed Impressions: Service Date/Time: March 12:47 - CONCLUSION: The study is negative for deep venous thrombosis bilateral lower extremity. Hans Etienne MD Ankle X-Ray 04/08/17 0000 Signed Impressions: Service Date/Time: March 08:03 - CONCLUSION: 1. Prominent soft tissue swelling and diffuse soft tissue calcifications. 2. The osseous structures are intact. Hans Etienne MD Chest X-Ray 04/07/17 1117 Signed Impressions: Service Date/Time: Friday, April 07, 2017 11:38 - CONCLUSION: Normal examination. Kenrick Eaton MD Objective Remarks awake and alert, interactive anicteric lungs- no rales regular rhythm abdomen- flabby bilateral groins- with dry scaling bilateral LE- chronic erythema L> R, some eschar/scab with blisters from leg swelling left ankle- minimal bloody discharge right lower leg and right foot A/P Problem List: (1) Falls ICD Code: W19.XXXA - Unspecified fall, initial encounter Status: Acute (2) General weakness ICD Code: R53.1 - Weakness Status: Acute Assessment and Plan 61-year-old male with history of morbid obesity, alcohol abuse, hypothyroidism, depression, chronic lower extremity edema, MU noncompliant with CPAP, gastric bypass, presents after a fall with weakness. Fall, Generalized Weakness, Inability to Care for Self: suspect multifactorial with chronic deconditioning, alcohol abuse, extensive BLE edema, morbid obesity. CXR images reviewed, no acute findings. -Consult PT/OT -patient found in urine/feces, extremely poor hygiene, likely needs placement -case management consulted Chronic Venous Stasis Chronic leg swelling Cellulitis ? chronic Hypertension- some elevated SBps will check an Echo - daughter does not recall any history of heart disease -Reviewed ESR/CRP, elevated no fever, no leukocytosis, afebrile started on broad coverage with Zosyn and Vanco Wound care and podiatry consultation appreciated, ID consult for recommendations- consider starting low dose diuretic- Lasix 20 mg daily Morbid Obesity: Patient weighs 150kg, BMI 48.8. Patient is already s/p bariatric surgery with gastric bypass. -counseled on weight reduction -heart healthy diet Hypothyroidism: -TSH WNL -restart Synthroid 25 mcg po daily Alcohol Abuse: patient reports drinking 1 L of wine nightly -counseled on cessation -start on thiamine/folate/MVI -CIWA protocol with ativan prn -seizure precautions DVT Prophylaxis: Heparin SQ, TEDs CM- would like to go back to [facility] Marshall MD Apr 09, 2017 14:25
[2017-04-09] MEDS ORDERED: ENOXAPARIN SODIUM 40 MG/0.4 ML SYRINGE SQ SCH (14:45)
[2017-04-09 16:15] LABS: HEMOGLOBIN A1a 0.9 %; HEMOGLOBIN A1b 1.7 %; HEMOGLOBIN Ao 83.3 %; HEMOGLOBIN LA1C 2.5 %; HEMOGLOBIN P3 6.4 %
[2017-04-09] MEDS: VANCOMYCIN INJ 1,700 MG in SODIUM CHLORID 0.9% 500 ML INJ 500 ML IV SCH (17:00)
[2017-04-09 18:29] VITALS: BP 165/81; PULSE 85; RESP 16; TEMP 98.1; O2SAT 98
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
[2017-04-09] MEDS ORDERED: traZODone HCL 50 MG TAB PO SCH (21:00)
[2017-04-09] MEDS ORDERED: PHARMACY ORDERED LAB ONE (21:45)
[2017-04-09 22:10] VITALS: O2SAT 94
[2017-04-10] MEDS: ACETAMINOPHEN/HYDROcodone 325 MG/5 MG TAB PO PRN ×4 (01:38→21:58)
[2017-04-10] MEDS ORDERED: PHARMACY ORDERED LAB ONE (04:45)
--- NOTE | 2017-04-10 07:25 | HHI.PR ---
Subjective Remarks no complains states good po gets around on a wheelchair Objective Vitals Vital Signs Date Time Temp Pulse Resp B/P (MAP) Pulse Ox O2 Delivery O2 Flow Rate FiO2 04/09/17 22:10 94 21 04/09/17 18:29 98.1 85 16 165/81 (109) 98 I/O 04/09/17 04/09/17 04/09/17 04/10/17 04/10/17 04/10/17 07:00 15:00 23:00 07:00 15:00 23:00 Intake Total 480 ml 240 ml 1460 ml 480 ml Output Total 1100 ml Balance -620 ml 240 ml 1460 ml 480 ml Intake Oral 480 ml 240 ml 1460 ml 480 ml Output Urine Total 1100 ml # Voids 2 2 Result Diagram: 04/08/17 0341 04/09/17 0408 Imaging Last Impressions Lower Extremity Ultrasound 04/08/17 0000 Signed Impressions: Service Date/Time: March 12:47 - CONCLUSION: The study is negative for deep venous thrombosis bilateral lower extremity. Hans Etienne MD Ankle X-Ray 04/08/17 0000 Signed Impressions: Service Date/Time: March 08:03 - CONCLUSION: 1. Prominent soft tissue swelling and diffuse soft tissue calcifications. 2. The osseous structures are intact. Hans Etienne MD Chest X-Ray 04/07/17 1117 Signed Impressions: Service Date/Time: Friday, April 07, 2017 11:38 - CONCLUSION: Normal examination. Kenrick Eaton MD Objective Remarks awake and alert, no acute distress anicteric lungs- no rales regular rhythm abdomen- flabby bilateral groins- with dry scaling bilateral LE- chronic erythema L> R, some eschar/scab with some blisters from leg swelling mves all extremities spontanoeusly A/P Problem List: (1) Falls ICD Code: W19.XXXA - Unspecified fall, initial encounter Status: Acute (2) General weakness ICD Code: R53.1 - Weakness Status: Acute Assessment and Plan 61-year-old male with history of morbid obesity, alcohol abuse, hypothyroidism, depression, chronic lower extremity edema, MU noncompliant with CPAP, gastric bypass, presents after a fall with weakness. Fall, Generalized Weakness, Inability to Care for Self: suspect multifactorial with chronic deconditioning, alcohol abuse, extensive BLE edema, morbid obesity. CXR images reviewed, no acute findings. -Consult PT/OT -patient found in urine/feces, extremely poor hygiene, likely needs placement -case management consulted Chronic Venous Stasis Dermatitis: Chronic leg swelling Cellulitis LE- L>R Hypertension- some elevated SBps will check an Echo - daughter does not recall any history of heart disease no fever, no leukocytosis, afebrile on Vanco Wound care and podiatry consultation appreciated, Monitor ID saw patient- -continue Vanc. DC zosyn. If for DC will change to po Keflex control edema-low dose diuretic- Lasix 20 mg daily Morbid Obesity: Patient weighs 150kg, BMI 48.8. Patient is already s/p bariatric surgery with gastric bypass. -counseled on weight reduction -heart healthy diet Hypothyroidism: -TSH WNL -restart Synthroid 25 mcg po daily Alcohol Abuse: patient reports drinking 1 L of wine nightly -counseled on cessation -start on thiamine/folate/MVI -CIWA protocol with ativan prn -seizure precautions DVT Prophylaxis: Heparin SQ, TEDs CM- would like to go back to [facility]- Carol Hope MD Apr 10, 2017 07:25
[2017-04-10 07:36] VITALS: BP 156/79; PULSE 76; RESP 17; TEMP 97.6; O2SAT 93
[2017-04-10] MEDS: FUROSEMIDE 20 MG TAB PO SCH (09:01)
[2017-04-10] MEDS: DOCUSATE SODIUM 50 MG/SENNA 8.6 MG TAB PO SCH ×2 (09:01→21:25)
[2017-04-10] MEDS: THIAMINE HCL 100 MG TAB PO SCH (09:02)
[2017-04-10] MEDS: FOLIC ACID 1 MG TAB PO SCH (09:02)
[2017-04-10] MEDS: MULTIVITAMINS/MINERALS THERAPEUTIC TAB PO SCH (09:02)
[2017-04-10] MEDS: VENLAFAXINE HCL XR 75 MG CAP PO SCH (09:02)
[2017-04-10] MEDS: PETROLATUM 49%/ZINC OXIDE 15% 4 OUNCE TUBE TOPICAL SCH (09:19)
[2017-04-10] MEDS: VANCOMYCIN INJ 1,700 MG in SODIUM CHLORID 0.9% 500 ML INJ 500 ML IV SCH ×2 (09:19→16:39)
--- NOTE | 2017-04-10 10:17 | PD.POD ---
Subjective Pain score: 3 Remarks Doing well, requesting phone to call people Past Med/Surg/Social History Social History Smoking Status: Former Smoker Objective Vital Signs Vital Signs Date Time Temp Pulse Resp B/P (MAP) Pulse Ox O2 Delivery O2 Flow Rate FiO2 04/10/17 07:36 97.6 76 17 156/79 (104) 93 04/09/17 22:10 94 21 04/09/17 18:29 98.1 85 16 165/81 (109) 98 Coded Allergies: No Known Allergies (Verified Allergy, Unknown, 04/07/17) Medications and IVs Administered Medications Medications (Trade) Dose Ordered Sig/Ezequiel Route PRN Reason Start Time Stop Time Status Last Admin Dose Admin Acetaminophen (Tylenol) 650 mg Q4H PRN PO TEMP > 100.4 04/07/17 15:00 04/08/17 09:14 Heparin Sodium (Porcine) (Heparin Inj) 5,000 units Q8HR SQ 04/07/17 22:00 04/09/17 21:46 Senna/Docusate Sodium (Celeste-Colace) 1 tab BID PO 04/07/17 21:00 04/10/17 09:01 Folic Acid (Folate) 1 mg DAILY PO 04/08/17 09:00 04/13/17 08:59 04/10/17 09:02 Thiamine HCl (Vitamin B1) 100 mg DAILY PO 04/08/17 09:00 04/10/17 09:02 Multivitamins/ Minerals Therapeutic (Theragran M Tab) 1 tab DAILY PO 04/08/17 09:00 04/13/17 08:59 04/10/17 09:02 Nystatin (Mycostatin Powder) 1 applic Q8HR TOPICAL 04/07/17 22:00 04/09/17 22:00 Petrolatum/Zinc Oxide (Sensi-Care Protective Barrier Oint) 1 applic DAILY TOPICAL 04/08/17 21:00 04/10/17 09:19 Vancomycin HCl 1700 mg/Sodium Chloride 517 ml @ 258.5 mls/ hr Q12H IV 04/08/17 17:00 04/10/17 09:19 Lorazepam (Ativan) 1 mg Q6H PRN PO MODERATE TO SEVERE ANXIETY 04/08/17 16:45 04/08/17 19:58 Lorazepam (Ativan Inj) 1 mg Q6H PRN IM MODERATE TO SEVERE ANXIETY 04/08/17 16:45 04/09/17 21:43 Levothyroxine Sodium (Synthroid) 25 mcg DAILY@0600 PO 04/09/17 06:00 04/09/17 06:00 Acetaminophen/ Hydrocodone Bitart ([place] 5-325 Mg) 1 tab Q6H PRN PO PAIN SCALE 6 TO 10 04/08/17 17:15 04/10/17 09:02 Trazodone HCl (Desyrel) 100 mg HS PO 04/09/17 21:00 04/09/17 21:00 Venlafaxine HCl (Effexor Xr) 75 mg DAILY PO 04/10/17 09:00 04/10/17 09:02 Furosemide (Lasix) 20 mg DAILY PO 04/10/17 09:00 04/10/17 09:01 Other Results Laboratory Tests Test 04/09/17 04:08 04/10/17 07:06 Blood Urea Nitrogen 14 MG/DL Creatinine 0.75 MG/DL 0.67 MG/DL Random Glucose 85 MG/DL Calcium Level 7.6 MG/DL Sodium Level 142 MEQ/L Potassium Level 3.7 MEQ/L Chloride Level 110 MEQ/L Carbon Dioxide Level 25.3 MEQ/L Anion Gap 7 MEQ/L Estimat Glomerular Filtration Rate 106 ML/MIN 121 ML/MIN Hemoglobin A1c 5.8 % Triglycerides Level 68 MG/DL Cholesterol Level 118 MG/DL LDL Cholesterol 61 MG/DL HDL Cholesterol 43.3 MG/DL Cholesterol/HDL Ratio 2.72 RATIO Microbiology Date/Time Source Procedure Growth Status 04/07/17 11:36 Blood Peripheral Aerobic Blood Culture - Preliminary NO GROWTH IN 2 DAYS Resulted 04/07/17 11:36 Blood Peripheral Anaerobic Blood Culture - Preliminary NO GROWTH IN 2 DAYS Resulted 04/07/17 11:30 Blood Peripheral Aerobic Blood Culture - Preliminary NO GROWTH IN 2 DAYS Resulted 04/07/17 11:30 Blood Peripheral Anaerobic Blood Culture - Preliminary NO GROWTH IN 2 DAYS Resulted 04/07/17 11:30 Urine Catheterized Urine Urine Culture - Final NO GROWTH IN 48 HOURS. Complete 04/08/17 16:58 Wound Ankle Gram Stain - Final Resulted 04/08/17 16:58 Wound Ankle Wound Culture Pending Resulted Last 72 hours Impressions Lower Extremity Ultrasound 04/08/17 0000 Signed Impressions: Service Date/Time: March 12:47 - CONCLUSION: The study is negative for deep venous thrombosis bilateral lower extremity. Hans Etienne MD Ankle X-Ray 04/08/17 0000 Signed Impressions: Service Date/Time: March 08:03 - CONCLUSION: 1. Prominent soft tissue swelling and diffuse soft tissue calcifications. 2. The osseous structures are intact. Hans Etienne MD Chest X-Ray 04/07/17 1117 Signed Impressions: Service Date/Time: Friday, April 07, 2017 11:38 - CONCLUSION: Normal examination. Kenrick Eaton MD Micro update shows MRSA Physical Exam Remarks L medial lower leg wound medial ankle. L medial ankle wound presents with ~90% covered of thin black eschar. and ~10% pink tissue, wound has no drainage. Venous stasis noted, good ROm of feet ankle ankles sensation with some decreased feeling distal to ankle Assessment & Plan Diagnosis: (1) Venous stasis ulcer limited to breakdown of skin without varicose veins ICD Codes: I87.2 - Venous insufficiency (chronic) (peripheral); L97.901 - Non- pressure chronic ulcer of unspecified part of unspecified lower leg limited to breakdown of skin (2) Cellulitis ICD Codes: L03.90 - Cellulitis, unspecified Status: Acute A/P +MRSA, ID following, ordered Unna boot, no surgery indicated FU inpt vs outpt 1 week. May arrange woundcare center FU before DC. Problem Qualifiers (1) Cellulitis: Antolin Montgomery DPWhitney Apr 10, 2017 10:17
[2017-04-10 11:35] VITALS: O2SAT 96
[2017-04-10] MEDS: NYSTATIN 100,000 U/GM PWD 15 GM BTL TOPICAL SCH ×2 (14:29→21:38)
[2017-04-10] MEDS: HEPARIN SODIUM - SQ 10,000 UNITS/ML VIAL SQ SCH ×2 (14:29→21:27)
--- NOTE | 2017-04-10 15:55 | HHI.PYPN ---
Subjective Remarks Patient was seen and case discussed with nursing. Pt is perseverant on pain medication, gives superficial inconsistent answers about passive suicidal thoughts, at first denying them and then admitting to them. CO of poor sleep. Behaving well on the unit. Mental Status Examination Appearance: Appropriate Consciousness: Alert Orientation: x4 Motor Activity: Normal gait Speech: Unremarkable Language: Adequate Fund of Knowledge: Adequate Attention and Concentration: Adequate Memory: Unremarkable Mood: Sad Affect: Sad Thought Process & Associations: Intact, Linear Thought Content: Appropriate Hallucination Type: None Delusion Type: None Suicidal Ideation: Yes ("sometimes") Suicidal Plan: No Suicidal Intention: No Homicidal Ideation: No Homicidal Plan: No Homicidal Intention: No Insight: Fair Judgment: Adequate Results Labs Test 04/10/17 07:06 Creatinine 0.67 MG/DL Estimat Glomerular Filtration Rate 121 ML/MIN Vancomycin Level Trough 13.3 MCG/ML Date/Time Source Procedure Growth Status 04/07/17 11:36 Blood Peripheral Aerobic Blood Culture - Preliminary NO GROWTH IN 3 DAYS Resulted 04/07/17 11:36 Blood Peripheral Anaerobic Blood Culture - Preliminary NO GROWTH IN 3 DAYS Resulted 04/07/17 11:30 Urine Catheterized Urine Urine Culture - Final NO GROWTH IN 48 HOURS. Complete 04/08/17 16:58 Wound Ankle Gram Stain - Final Resulted 04/08/17 16:58 Wound Culture - Preliminary S. Aureus Mrsa Resulted Vitals/IOs Vital Signs Date Time Temp Pulse Resp B/P (MAP) Pulse Ox O2 Delivery O2 Flow Rate FiO2 04/10/17 11:35 96 21 04/10/17 07:36 97.6 76 17 156/79 (104) 04/07/17 12:30 Room Air Intake and Output 04/10/17 04/10/17 04/11/17 08:00 16:00 00:00 Intake Total 480 ml Balance 480 ml Assessment & Plan Problem List: (1) Adjustment disorder with depressed mood ICD Codes: F43.21 - Adjustment disorder with depressed mood Assessment & Plan Increase trazodone to 150mg po qhs Justification for Cont. Inpt. Pt would decompensate in a less restrictive setting. Joe Saleh DO Apr 10, 2017 15:55
[2017-04-10 18:54] VITALS: BP 169/104; PULSE 74; RESP 17; TEMP 98.5
[2017-04-10] MEDS ORDERED: cloNIDine HCL 0.1 MG TAB PO PRN (19:15)
[2017-04-10] MEDS: traZODone HCL 50 MG TAB PO SCH (21:26)
[2017-04-11] MEDS: VANCOMYCIN INJ 1,700 MG in SODIUM CHLORID 0.9% 500 ML INJ 500 ML IV SCH ×4 (05:00→18:53)
[2017-04-11] MEDS: LEVOTHYROXINE SODIUM 25 MCG TAB PO SCH (05:23)
[2017-04-11 05:51] VITALS: BP 149/77; PULSE 82; RESP 16; TEMP 97.6; O2SAT 96
[2017-04-11] MEDS: NYSTATIN 100,000 U/GM PWD 15 GM BTL TOPICAL SCH ×3 (06:00→21:15)
[2017-04-11] MEDS: HEPARIN SODIUM - SQ 10,000 UNITS/ML VIAL SQ SCH ×3 (06:00→21:15)
[2017-04-11] MEDS: DOCUSATE SODIUM 50 MG/SENNA 8.6 MG TAB PO SCH ×3 (09:00→21:00)
[2017-04-11] MEDS: FOLIC ACID 1 MG TAB PO SCH ×2 (09:00→11:53)
[2017-04-11] MEDS: FUROSEMIDE 20 MG TAB PO SCH ×2 (09:00→11:53)
[2017-04-11] MEDS: VENLAFAXINE HCL XR 75 MG CAP PO SCH ×2 (09:00→11:52)
[2017-04-11] MEDS: PETROLATUM 49%/ZINC OXIDE 15% 4 OUNCE TUBE TOPICAL SCH ×2 (09:00→11:53)
[2017-04-11] MEDS: THIAMINE HCL 100 MG TAB PO SCH ×2 (09:00→11:53)
[2017-04-11] MEDS: MULTIVITAMINS/MINERALS THERAPEUTIC TAB PO SCH ×2 (09:00→11:53)
[2017-04-11] MEDS: ACETAMINOPHEN/HYDROcodone 325 MG/5 MG TAB PO PRN ×2 (09:27→21:14)
--- NOTE | 2017-04-11 12:31 | HHI.PR ---
Subjective Remarks awake and alert, denies any pain Objective Vitals Vital Signs Date Time Temp Pulse Resp B/P (MAP) Pulse Ox O2 Delivery O2 Flow Rate FiO2 04/11/17 05:51 97.6 82 16 149/77 (101) 96 04/10/17 18:54 98.5 74 17 169/104 (125) I/O 04/10/17 04/10/17 04/10/17 04/11/17 04/11/17 04/11/17 07:00 15:00 23:00 07:00 15:00 23:00 Intake Total 480 ml 120 ml Balance 480 ml 120 ml Intake Oral 480 ml 120 ml # Voids 2 3 Result Diagram: 04/08/17 0341 04/10/17 0706 Imaging Last Impressions Lower Extremity Ultrasound 04/08/17 0000 Signed Impressions: Service Date/Time: March 12:47 - CONCLUSION: The study is negative for deep venous thrombosis bilateral lower extremity. Hans Etienne MD Ankle X-Ray 04/08/17 0000 Signed Impressions: Service Date/Time: March 08:03 - CONCLUSION: 1. Prominent soft tissue swelling and diffuse soft tissue calcifications. 2. The osseous structures are intact. Hans Etienne MD Chest X-Ray 04/07/17 1117 Signed Impressions: Service Date/Time: Friday, April 07, 2017 11:38 - CONCLUSION: Normal examination. Kenrick Eaton MD Objective Remarks awake and alert, no acute distress anicteric lungs- no rales regular rhythm abdomen- flabby bilateral groins- with dry scaling bilateral LE- chronic erythema L> R, left leg- dry eschar/scab - blisters from leg swelling- improved moves all extremities spontaneously A/P Problem List: (1) Falls ICD Code: W19.XXXA - Unspecified fall, initial encounter Status: Acute (2) General weakness ICD Code: R53.1 - Weakness Status: Acute Assessment and Plan 61-year-old male with history of morbid obesity, alcohol abuse, hypothyroidism, depression, chronic lower extremity edema, MU noncompliant with CPAP, gastric bypass, presents after a fall with weakness. Fall, Generalized Weakness, Inability to Care for Self: suspect multifactorial with chronic deconditioning, alcohol abuse, extensive BLE edema, morbid obesity. CXR images reviewed, no acute findings. -Consult PT/OT -per report - patient found in urine/feces, extremely poor hygiene, likely needs placement -case management consulted Chronic Venous Stasis Dermatitis: Chronic leg swelling Cellulitis ? chronic Hypertension- some elevated SBps will check an Echo - daughter does not recall any history of heart disease -Reviewed ESR/CRP, elevated no fever, no leukocytosis, afebrile on Vanco Wound care and podiatry consultation appreciated, ID ff- change to po prior to DC starting low dose diuretic- Lasix 20 mg daily Elevated BPs- ff BPs started on Lasix Morbid Obesity: Patient weighs 150kg, BMI 48.8. Patient is already s/p bariatric surgery with gastric bypass. -counseled on weight reduction -heart healthy diet Hypothyroidism: -TSH WNL -restarted Synthroid 25 mcg po daily Alcohol Abuse: patient reports drinking 1 L of wine nightly -counseled on cessation -start on thiamine/folate/MVI -CIWA protocol with ativan prn -seizure precautions DVT Prophylaxis: Heparin SQ, TEDs CM- would like to go back to [facility] MD Apr 11, 2017 12:31
--- NOTE | 2017-04-11 15:02 | HHI.PYPN ---
Subjective Remarks Pt was seen and case discussed with nursing. Today, pt is irritable, demanding and entitled. Claims he never had SI and is focused on discharge. mood is "better." denies si/hi/ah/vh. Tolerating medications well. Mental Status Examination Appearance: Appropriate Consciousness: Alert Orientation: x4 Motor Activity: Normal gait Speech: Unremarkable Language: Adequate Fund of Knowledge: Adequate Attention and Concentration: Adequate Memory: Unremarkable Mood: Irritable Affect: Irritable, Labile Thought Process & Associations: Intact, Linear Thought Content: Appropriate Hallucination Type: None Delusion Type: None Suicidal Ideation: Yes ("sometimes") Suicidal Plan: No Suicidal Intention: No Homicidal Ideation: No Homicidal Plan: No Homicidal Intention: No Insight: Fair Judgment: Adequate Results Labs Date/Time Source Procedure Growth Status 04/07/17 11:36 Blood Peripheral Aerobic Blood Culture - Preliminary NO GROWTH IN 4 DAYS Resulted 04/07/17 11:36 Blood Peripheral Anaerobic Blood Culture - Preliminary NO GROWTH IN 4 DAYS Resulted 04/07/17 11:30 Urine Catheterized Urine Urine Culture - Final NO GROWTH IN 48 HOURS. Complete 04/08/17 16:58 Wound Ankle Gram Stain - Final Resulted 04/08/17 16:58 Wound Culture - Preliminary S. Aureus Mrsa Gram Negative Braeden Resulted Vitals/IOs Vital Signs Date Time Temp Pulse Resp B/P (MAP) Pulse Ox O2 Delivery O2 Flow Rate FiO2 04/11/17 05:51 97.6 82 16 149/77 (101) 96 04/10/17 11:35 21 04/07/17 12:30 Room Air Assessment & Plan Problem List: (1) Adjustment disorder with depressed mood ICD Codes: F43.21 - Adjustment disorder with depressed mood Assessment & Plan Continue current treatment plan. Justification for Cont. Inpt. Pt would decompensate in a less restrictive setting. Joe Saleh DO Apr 11, 2017 15:02
[2017-04-11 18:14] VITALS: BP 150/80; PULSE 84; RESP 18; TEMP 98; O2SAT 96
[2017-04-11] MEDS: traZODone HCL 50 MG TAB PO SCH (21:14)
[2017-04-11] MEDS: LORazepam 1 MG TAB PO PRN (23:51)
[2017-04-12] MEDS ORDERED: PHARMACY ORDERED LAB ONE ×2 (04:45→16:45)
[2017-04-12] MEDS: VANCOMYCIN INJ 1,700 MG in SODIUM CHLORID 0.9% 500 ML INJ 500 ML IV SCH (05:00)
[2017-04-12] MEDS: HEPARIN SODIUM - SQ 10,000 UNITS/ML VIAL SQ SCH ×3 (05:38→21:24)
[2017-04-12] MEDS: LEVOTHYROXINE SODIUM 25 MCG TAB PO SCH (05:38)
[2017-04-12 05:52] LABS: BICARBONATE 26.3 MEQ/L (21.0-32.0); POTASSIUM 3.6 MEQ/L (3.5-5.1)
[2017-04-12 05:55] LABS: VANCOMYCIN TROUGH 27.5 MCG/ML (5.0-10.0)
[2017-04-12] MEDS: NYSTATIN 100,000 U/GM PWD 15 GM BTL TOPICAL SCH ×3 (05:59→21:25)
[2017-04-12 06:12] VITALS: BP 160/75; PULSE 78; RESP 18; TEMP 98; O2SAT 97
--- NOTE | 2017-04-12 08:59 | HHI.PYPN ---
Subjective Remarks Patient seen follow up, chart reviewed. Discussion with nursing staff reported that patient current on isolation and contact precautions, eating less and noted to be upset that he is confined in room due to contact precautions. Patient found lying on hospital bed, with covers over his head, no eye contact talking through the sheets. He states that his weekend "sucked", reports having poor sleep lately, mood being "sucks", continues to report depression "not getting any better". He states that he has not been eating due to continued decreased appetite. He continues with SI, stating "I'll just ". Review of Systems Except as stated in HPI: all other systems reviewed are Neg Mental Status Examination Appearance: Appropriate Consciousness: Alert Orientation: x4 Motor Activity: Normal gait Speech: Unremarkable Language: Adequate Fund of Knowledge: Adequate Attention and Concentration: Adequate Memory: Unremarkable Mood: Irritable Affect: Irritable Thought Process & Associations: Intact, Linear Thought Content: Appropriate Hallucination Type: None Delusion Type: None Suicidal Ideation: Yes ("I'll just ") Suicidal Plan: No Suicidal Intention: No Homicidal Ideation: No Homicidal Plan: No Homicidal Intention: No Insight: Fair Judgment: Adequate Results Labs Test 04/12/17 05:00 Blood Urea Nitrogen 8 MG/DL Creatinine 0.65 MG/DL Random Glucose 71 MG/DL Calcium Level 8.0 MG/DL Sodium Level 142 MEQ/L Potassium Level 3.6 MEQ/L Chloride Level 108 MEQ/L Carbon Dioxide Level 26.3 MEQ/L Anion Gap 8 MEQ/L Estimat Glomerular Filtration Rate 125 ML/MIN Vancomycin Level Trough 27.5 MCG/ML Date/Time Source Procedure Growth Status 04/07/17 11:36 Blood Peripheral Aerobic Blood Culture - Preliminary NO GROWTH IN 4 DAYS Resulted 04/07/17 11:36 Blood Peripheral Anaerobic Blood Culture - Preliminary NO GROWTH IN 4 DAYS Resulted 04/07/17 11:30 Urine Catheterized Urine Urine Culture - Final NO GROWTH IN 48 HOURS. Complete 04/08/17 16:58 Wound Ankle Gram Stain - Final Resulted 04/08/17 16:58 Wound Culture - Preliminary S. Aureus Mrsa Gram Negative Braeden Resulted Vitals/IOs Vital Signs Date Time Temp Pulse Resp B/P (MAP) Pulse Ox O2 Delivery O2 Flow Rate FiO2 04/12/17 06:12 98.0 78 18 160/75 (103) 97 04/10/17 11:35 21 Intake and Output 04/12/17 04/12/17 04/13/17 08:00 16:00 00:00 Intake Total 0 ml Balance 0 ml Assessment & Plan Problem List: (1) Adjustment disorder with depressed mood ICD Codes: F43.21 - Adjustment disorder with depressed mood Assessment & Plan Patient at this time continues to report feeling depressed, feeling hopeless, noted to be irritable, entitled and demanding. Patient endorsing suicide ideation. We'll increase Effexor XR to 150 mg by mouth daily for depression. We'll increase trazodone 200 mg by mouth at bedtime for sleep disturbance. The patient continues to have difficulty with sleep despite increase in dose will consider switching to a different hypnotic. Continue to recommend issues as per primary medical team. Discharge planning in progress. Justification for Cont. Inpt. At risk for further decompensation if at lower level of care Discharge Planning Patient to be discharged to home with home services or eyes to a [place] [facility] facility if accepted Tc Higuera MD Apr 12, 2017 08:59
[2017-04-12] MEDS: PETROLATUM 49%/ZINC OXIDE 15% 4 OUNCE TUBE TOPICAL SCH (09:00)
[2017-04-12] MEDS: VENLAFAXINE HCL XR 75 MG CAP PO SCH ×2 (09:02→09:45)
[2017-04-12] MEDS: FOLIC ACID 1 MG TAB PO SCH (09:03)
[2017-04-12] MEDS: ACETAMINOPHEN/HYDROcodone 325 MG/5 MG TAB PO PRN ×2 (09:03→21:23)
[2017-04-12] MEDS: DOCUSATE SODIUM 50 MG/SENNA 8.6 MG TAB PO SCH ×2 (09:03→21:23)
[2017-04-12] MEDS: FUROSEMIDE 20 MG TAB PO SCH (09:03)
[2017-04-12] MEDS: THIAMINE HCL 100 MG TAB PO SCH (09:03)
[2017-04-12] MEDS: MULTIVITAMINS/MINERALS THERAPEUTIC TAB PO SCH (09:03)
--- NOTE | 2017-04-12 12:44 | PD.TTN ---
Patient Problems 1. Discharge planning 2. Medication compliance 3. Knowledge deficit 4. Lack of coping skills Progress Toward Goals Provider Present: Dr. Katherin Higuera Provider Input: Patient at this time continues to report feeling depressed, with suicide ideation per doctor, patients Effexor will be increased to 150 mg and trazodone 200 mg by mouth at bedtime for sleep disturbance. Nurse(s) Present: VICENTA Coates Nurse(s) Input: Patient is not eating most meals, he has agreed to take his medication Psychiatric Counselors Present: RADHA Cook Psych Therapist Input: Counselor will review with patient his goals, and treatment plan, and assist with dc planning with appropriate service/or placement Group Spec/RT/OT/BASURTO Present: SB Khan, Cash Bernal, OT Group Spec/RT/OT/BASURTO Input: Per OT patient is not attending groups or activities Documentation Scribe: RADHA Cook Sandra LMHC Apr 12, 2017 12:44
[2017-04-12] MEDS: NIFEdipine 30 MG SUSTAINED RELEASE TAB PO SCH (14:30)
--- NOTE | 2017-04-12 14:39 | HHI.PR ---
Subjective Remarks patient smiling and interactive good po denies any pain Objective Vitals Vital Signs Date Time Temp Pulse Resp B/P (MAP) Pulse Ox O2 Delivery O2 Flow Rate FiO2 04/12/17 06:12 98.0 78 18 160/75 (103) 97 04/11/17 18:14 98.0 84 18 150/80 (103) 96 I/O 04/11/17 04/11/17 04/11/17 04/12/17 04/12/17 04/12/17 07:00 15:00 23:00 07:00 15:00 23:00 Intake Total 0 ml 0 ml Balance 0 ml 0 ml Intake Oral 0 ml 0 ml # Voids 3 1 1 1 # Bowel Movements 0 0 Result Diagram: 04/08/17 0341 04/12/17 0500 Imaging Last Impressions Lower Extremity Ultrasound 04/08/17 0000 Signed Impressions: Service Date/Time: March 12:47 - CONCLUSION: The study is negative for deep venous thrombosis bilateral lower extremity. Hans Etienne MD Ankle X-Ray 04/08/17 0000 Signed Impressions: Service Date/Time: March 08:03 - CONCLUSION: 1. Prominent soft tissue swelling and diffuse soft tissue calcifications. 2. The osseous structures are intact. Hans Etienne MD Chest X-Ray 04/07/17 1117 Signed Impressions: Service Date/Time: Friday, April 07, 2017 11:38 - CONCLUSION: Normal examination. Kenrick Eaton MD Objective Remarks awake and alert, no acute distress anicteric lungs- no rales regular rhythm abdomen- flabby bilateral groins- with dry scaling bilateral LE- chronic erythema L> R, left leg- dry eschar/scab - blisters from leg swelling- decreased moves all extremities spontaneously A/P Problem List: (1) Falls ICD Code: W19.XXXA - Unspecified fall, initial encounter Status: Acute (2) General weakness ICD Code: R53.1 - Weakness Status: Acute Assessment and Plan 61-year-old male with history of morbid obesity, alcohol abuse, hypothyroidism, depression, chronic lower extremity edema, MU noncompliant with CPAP, gastric bypass, presents after a fall with weakness. Fall, Generalized Weakness, Inability to Care for Self: suspect multifactorial with chronic deconditioning, alcohol abuse, extensive BLE edema, morbid obesity. CXR images reviewed, no acute findings. -Consult PT/OT -patient found in urine/feces, extremely poor hygiene, likely needs placement -case management consulted patient in good spirits this am Chronic Venous Stasis Dermatitis: Chronic leg swelling Cellulitis LE- L>R Hypertension- some elevated SBps Echo pending no fever, no leukocytosis, afebrile on Vanco Wound care and podiatry consultation appreciated, Monitor ID saw patient- -continue Vanc. . If for DC will change to po Doxycycline + Kefllex per ID recommendations control edema-low dose diuretic- Lasix 20 mg daily Hypertension add CCB Procardia 30 mg XL daily continue on diuretic Lasix 20 mg daily Morbid Obesity: Patient weighs 150kg, BMI 48.8. Patient is already s/p bariatric surgery with gastric bypass. -counseled on weight reduction -heart healthy diet Hypothyroidism: -TSH WNL -restart Synthroid 25 mcg po daily Alcohol Abuse: patient reports drinking 1 L of wine nightly -counseled on cessation -start on thiamine/folate/MVI -CIWA protocol with ativan prn -seizure precautions DVT Prophylaxis: Heparin SQ, TEDs CM- would like to go back to [facility]- Carol Hope MD Apr 12, 2017 14:39
--- NOTE | 2017-04-12 15:12 | ECHRPT ---
Indication: edema CONCLUSIONS The left ventricular systolic function is normal with an estimated ejection fraction in the range of 55-60%. Normal left ventricular size. Wall thickness is normal. Mild mitral valve regurgitation. There is mild tricuspid valve regurgitation. The estimated pulmonary arterial pressure is 40.9 mmHg. BP: 160 / 75 HR: Rhythm: MEASUREMENTS (Male / Female) Normal Values Technical Quality:Fair 2D ECHO LV Diastolic Diameter PLAX 4.7 cm 4.2 - 5.9 / 3.9 - 5.3 cm LV Systolic Diameter PLAX 3.5 cm IVS Diastolic Thickness 1.1 cm 0.6 - 1.0 / 0.6 - 0.9 cm LVPW Diastolic Thickness 0.9 cm 0.6 - 1.0 / 0.6 - 0.9 cm LV Relative Wall Thickness 0.4 RV Internal Dim ED PLAX 2.7 cm M-MODE Aortic Root Diameter MM 4.1 cm LA Systolic Diameter MM 3.6 cm LA Ao Ratio MM 0.9 AV Cusp Separation MM 2.7 cm DOPPLER Mitral E Point Velocity 56.3 cm/s Mitral A Point Velocity 73.1 cm/s Mitral E to A Ratio 0.8 LV E' Lateral Velocity 14.1 cm/s Mitral E to LV E' Lateral Ratio 4.0 LV E' Septal Velocity 9.7 cm/s Mitral E to LV E' Septal Ratio 5.8 TR Peak Velocity 278.0 cm/s TR Peak Gradient 30.9 mmHg Right Atrial Pressure 10.0 mmHg Pulmonary Artery Systolic Pressu 40.9 mmHg Right Ventricular Systolic Press 40.9 mmHg FINDINGS LEFT VENTRICLE The left ventricular systolic function is normal with an estimated ejection fraction in the range of 55-60%. Normal left ventricular size. Wall thickness is normal. RIGHT VENTRICLE Normal right ventricular size and systolic function. LEFT ATRIUM The left atrial size is normal. RIGHT ATRIUM The right atrial size is normal. ATRIAL SEPTUM Normal atrial septal thickness without atrial level shunting by limited color doppler interrogation. AORTA The aortic root and proximal ascending aorta are normal in size on limited imaging. MITRAL VALVE Mild mitral valve regurgitation. Structurally normal mitral valve. AORTIC VALVE Trileaflet aortic valve. No aortic valve stenosis or regurgitation. TRICUSPID VALVE There is mild tricuspid valve regurgitation. Structurally normal tricuspid valve. The estimated pulmonary arterial pressure is 40.9 mmHg. PULMONARY VALVE No pulmonary valve regurgitation or stenosis. VESSELS The inferior vena cava is normal in size. PERICARDIUM No pericardial effusion. Fahad Rushing MD (Electronically Signed) Final Date:12 April 2017 15:11
--- NOTE | 2017-04-12 16:16 | RADRPT ---
EXAM DATE/TIME: 04/12/2017 00:00 [place] COMPARISON: No previous studies available for comparison. INDICATIONS : Cellulitis TECHNIQUE: Four-cuff ankle and brachial pressures were obtained. Pulse cuff waveform tracings of the ankles were recorded, and ankle-brachial indices were calculated. PRESSURES (mmHg): Brachial (arm): Right 137 Left IV SITE Ankle: Right 191 Left 152 TABITHA: Right 1.39 Left 1.11 TBI: Right 0.83 Left 0.85 PULSED CUFF WAVEFORMS: Demonstrate normal amplitude bilaterally. CONCLUSION: Unremarkable ankle brachial indices. Minimally decreased TBI bilaterally. There is no evidence for inflow stenosis. Charles Nelson MD FACR on April 12, 2017 at 16:14 Board Certified Radiologist. This report was verified electronically.
--- NOTE | 2017-04-12 16:23 | PD.WCN.NOT ---
Wound Consult Description: Received consult from Doctor Montgomery for application of Chamorro boot and change every 3 to 5 days Communicated with: VICENTA Alexander 4th floor medical behavioral health unit and Doctor Ulises Podiatry Recommendation: Please change Chamorro boot every 3 to 5 days as follows Apply Calamine unna boot, followed by rolled gauze and Coban wrap. Please elevate BLE Additional Information: Patient seen on 4th floor behavioral health unit for application of Chamorro boot. Patient transferred to bed for boot application. Cleansed scabbed area on L medial ankle with normal saline and pat dry. Applied Unna boot with calamine in a spiral, fanned, fashion from just behind the toes to two finger widths behind the knee. Applied rolled gauze from just behind the toes to two finger widths behind the knee. Then applied Coban 4 inch from behind the toes to two finger widths behind the knee in a spiral fashion. Patient tolerated procedure well. Jelnea Ding [facility] Apr 12, 2017 16:23
[2017-04-12 18:01] VITALS: BP 156/70; PULSE 83; RESP 20; TEMP 97.2; O2SAT 98
[2017-04-12] MEDS: LORazepam 1 MG TAB PO PRN (21:22)
[2017-04-12] MEDS: traZODone HCL 100 MG TAB PO SCH (21:24)
[2017-04-13] MEDS: ACETAMINOPHEN 325 MG TAB PO PRN ×3 (01:37→20:41)
[2017-04-13] MEDS: ACETAMINOPHEN/HYDROcodone 325 MG/5 MG TAB PO PRN (04:32)
[2017-04-13 06:01] VITALS: BP 126/69; PULSE 69; RESP 18; TEMP 97.6; O2SAT 95
[2017-04-13] MEDS: LEVOTHYROXINE SODIUM 25 MCG TAB PO SCH (06:36)
[2017-04-13] MEDS: HEPARIN SODIUM - SQ 10,000 UNITS/ML VIAL SQ SCH ×3 (06:36→20:42)
[2017-04-13] MEDS: NYSTATIN 100,000 U/GM PWD 15 GM BTL TOPICAL SCH ×3 (06:36→22:00)
--- NOTE | 2017-04-13 08:30 | HHI.PYPN ---
Subjective Remarks Patient seen for follow-up, chart review. Discussion with she staff reported the patient was noted to be demanding, condescending with nursing staff, and argumentative. Patient found lying in hospital bed, cooperative stating that he is feeling better, recognized that he has not been getting along with nursing staff yesterday which she was upset about having received his kneeled but cold and due to being on contact precautions once she was in the room was not able to be reheated in the microwave which nursing staff had ordered him a new tray. Patient states that he has been eating as she would like due to the food being "unappealing" but aware that he needs to eat better. Patient denies any suicide ideations and reports that he depression is getting better. He recalls that he was feeling depressed initially as he was not expecting his to have left his home after he was discharged from the [facility] facility and continues to feel upset that she is not wanted to be involved in his life at this time. Patient states that once he is discharged he plans to go back to a skilled facility or home with home health services. Review of Systems Except as stated in HPI: all other systems reviewed are Neg Mental Status Examination Appearance: Appropriate Consciousness: Alert Orientation: x4 Motor Activity: Normal gait Speech: Unremarkable Language: Adequate Fund of Knowledge: Adequate Attention and Concentration: Adequate Memory: Unremarkable Mood: Irritable (less so today) Affect: Appropriate Thought Process & Associations: Intact, Goal directed, Linear Thought Content: Appropriate Hallucination Type: None Delusion Type: None Suicidal Ideation: No Suicidal Plan: No Suicidal Intention: No Homicidal Ideation: No Homicidal Plan: No Homicidal Intention: No Insight: Fair Judgment: Adequate Results Labs Labs reviewed. Test 04/12/17 17:15 Vancomycin Level Trough 29.0 MCG/ML Date/Time Source Procedure Growth Status 04/07/17 11:36 Blood Peripheral Aerobic Blood Culture - Final NO GROWTH IN 5 DAYS Complete 04/07/17 11:36 Blood Peripheral Anaerobic Blood Culture - Final NO GROWTH IN 5 DAYS Complete 04/07/17 11:30 Urine Catheterized Urine Urine Culture - Final NO GROWTH IN 48 HOURS. Complete 04/08/17 16:58 Wound Ankle Gram Stain - Final Complete 04/08/17 16:58 Wound Culture - Final S. Aureus Mrsa Acinetobacter Baumannii/Haemol Complete Vitals/IOs Vital Signs Date Time Temp Pulse Resp B/P (MAP) Pulse Ox O2 Delivery O2 Flow Rate FiO2 04/13/17 06:01 97.6 69 18 126/69 (88) 95 04/10/17 11:35 21 Intake and Output 04/13/17 04/13/17 04/14/17 08:00 16:00 00:00 Intake Total 360 ml Balance 360 ml Assessment & Plan Problem List: (1) Adjustment disorder with depressed mood ICD Codes: F43.21 - Adjustment disorder with depressed mood Assessment & Plan Patient at this time is noted to have improvement of depressive symptoms, denies any suicidal ideations. Patient agrees to home health services if he is not accepted to a [facility] facility. We'll continue current year for now as patient appears to be responding. We'll order a nutritional consult. Patient to continue recommendations as per primary medical team. Discharge planning in progress Justification for Cont. Inpt. At risk for further decompensation if at lower level of care Discharge Planning Patient to be discharged to a [facility] facility or to his residence with home health services in place Tc Higuera MD Apr 13, 2017 08:30
[2017-04-13] MEDS: DOCUSATE SODIUM 50 MG/SENNA 8.6 MG TAB PO SCH ×2 (09:00→20:46)
[2017-04-13] MEDS: FUROSEMIDE 20 MG TAB PO SCH (09:00)
[2017-04-13] MEDS: NIFEdipine 30 MG SUSTAINED RELEASE TAB PO SCH (09:00)
[2017-04-13] MEDS: VENLAFAXINE HCL XR 75 MG CAP PO SCH (09:00)
[2017-04-13] MEDS: PETROLATUM 49%/ZINC OXIDE 15% 4 OUNCE TUBE TOPICAL SCH (09:00)
[2017-04-13] MEDS: THIAMINE HCL 100 MG TAB PO SCH (09:00)
[2017-04-13] MEDS: LORazepam 1 MG TAB PO PRN (09:09)
[2017-04-13 10:11] LABS: BICARBONATE 25.2 MEQ/L (21.0-32.0); POTASSIUM 3.6 MEQ/L (3.5-5.1)
[2017-04-13] MEDS: VANCOMYCIN INJ 1,750 MG in SODIUM CHLORID 0.9% 500 ML INJ 500 ML IV SCH (14:00)
--- NOTE | 2017-04-13 14:34 | HHI.PR ---
Subjective Remarks patient smiling and more interactive denies any pain,fever or chills no diarrhea Objective Vitals Vital Signs Date Time Temp Pulse Resp B/P (MAP) Pulse Ox O2 Delivery O2 Flow Rate FiO2 04/13/17 06:01 97.6 69 18 126/69 (88) 95 04/12/17 18:01 97.2 83 20 156/70 (98) 98 I/O 04/12/17 04/12/17 04/12/17 04/13/17 04/13/17 04/13/17 07:00 15:00 23:00 07:00 15:00 23:00 Intake Total 0 ml 120 ml 600 ml 360 ml Balance 0 ml 120 ml 600 ml 360 ml Intake Oral 0 ml 120 ml 600 ml 360 ml # Voids 1 1 2 3 # Bowel Movements 0 Result Diagram: 04/13/17 0925 Imaging Last Impressions Lower Extremity Ultrasound 04/08/17 0000 Signed Impressions: Service Date/Time: March 12:47 - CONCLUSION: The study is negative for deep venous thrombosis bilateral lower extremity. Hans Etienne MD Ankle X-Ray 04/08/17 0000 Signed Impressions: Service Date/Time: March 08:03 - CONCLUSION: 1. Prominent soft tissue swelling and diffuse soft tissue calcifications. 2. The osseous structures are intact. Hans Etienne MD Chest X-Ray 04/07/17 1117 Signed Impressions: Service Date/Time: Friday, April 07, 2017 11:38 - CONCLUSION: Normal examination. Kenrick Eaton MD Objective Remarks awake and alert, no acute distress anicteric lungs- no rales regular rhythm abdomen- flabby bilateral groins- with dry scaling bilateral LE- edema and chronic erythema L> R, erythema - gradually improving moves all extremities spontaneously A/P Problem List: (1) Falls ICD Code: W19.XXXA - Unspecified fall, initial encounter Status: Acute (2) General weakness ICD Code: R53.1 - Weakness Status: Acute Assessment and Plan 61-year-old male with history of morbid obesity, alcohol abuse, hypothyroidism, depression, chronic lower extremity edema, MU noncompliant with CPAP, gastric bypass, presents after a fall with weakness. Fall, Generalized Weakness, Inability to Care for Self: suspect multifactorial with chronic deconditioning, alcohol abuse, extensive BLE edema, morbid obesity. CXR images reviewed, no acute findings. -daily PT -patient found in urine/feces, extremely poor hygiene, likely needs placement -case management consulted - interactive Chronic Venous Stasis Dermatitis: Chronic leg swelling-- gradually improved Cellulitis LE- L>R- improving - MRSA Echo unremarkable on IV Vanco Wound care and podiatry consultation appreciated, Monitor ID ff- I s/w cultures with Dr. Corona- she will review sensitivity and make recommendations to choice of po antibiotics for DC soon control edema-low dose diuretic- Lasix 20 mg daily Hypertension- better readings continue on Procardia 30 mg XL daily continue on diuretic Lasix 20 mg daily Morbid Obesity: Patient weighs 150kg, BMI 48.8. Patient is already s/p bariatric surgery with gastric bypass. -counseled on weight reduction -heart healthy diet Hypothyroidism: -TSH WNL -restart Synthroid 25 mcg po daily Alcohol Abuse: patient reports drinking 1 L of wine nightly -counseled on cessation -start on thiamine/folate/MVI -CIWA protocol with ativan prn -seizure precautions DVT Prophylaxis: Heparin SQ, CM working on placement - [facility] in [facility] likely will take him- 2- 3 days-- CM working on paperworks Carol Hope MD Apr 13, 2017 14:34
[2017-04-13] MEDS: LACTIC ACID (AMMONIUM LACTATE) 12% LOTION 225 GM BTL TOPICAL SCH ×2 (16:00→20:41)
[2017-04-13 19:48] VITALS: BP 129/58; PULSE 94; RESP 17; TEMP 98.3; O2SAT 95
[2017-04-13] MEDS: traZODone HCL 100 MG TAB PO SCH (20:41)
[2017-04-14] MEDS: LORazepam 1 MG TAB PO PRN ×2 (03:22→23:18)
[2017-04-14] MEDS: ACETAMINOPHEN/HYDROcodone 325 MG/5 MG TAB PO PRN ×4 (03:22→23:12)
[2017-04-14 05:00] VITALS: BP 115/56; PULSE 68; RESP 18; TEMP 97.1; O2SAT 97
[2017-04-14] MEDS: NYSTATIN 100,000 U/GM PWD 15 GM BTL TOPICAL SCH ×4 (06:00→23:32)
[2017-04-14] MEDS: LEVOTHYROXINE SODIUM 25 MCG TAB PO SCH (06:41)
[2017-04-14] MEDS: HEPARIN SODIUM - SQ 10,000 UNITS/ML VIAL SQ SCH ×3 (06:42→23:12)
[2017-04-14] MEDS: VANCOMYCIN INJ 1,750 MG in SODIUM CHLORID 0.9% 500 ML INJ 500 ML IV SCH (08:00)
--- NOTE | 2017-04-14 08:52 | HHI.PR ---
Subjective Remarks No current complaints Has cellulitis of the lower extremity as well as chronic lymphedema bilaterally Discussed with patient and RN Has history of gastric bypass but has regained all the weight Objective Vitals Vital Signs Date Time Temp Pulse Resp B/P (MAP) Pulse Ox O2 Delivery O2 Flow Rate FiO2 04/14/17 05:00 97.1 68 18 115/56 (75) 97 04/13/17 19:48 98.3 94 17 129/58 (81) 95 I/O 04/13/17 04/13/17 04/13/17 04/14/17 04/14/17 04/14/17 07:00 15:00 23:00 07:00 15:00 23:00 Intake Total 360 ml 120 ml 1597.5 ml Balance 360 ml 120 ml 1597.5 ml Intake Oral 360 ml 120 ml 1080 ml IV Total 517.5 ml # Voids 3 3 Result Diagram: 04/13/17 0925 Other Results Laboratory Tests Test 04/12/17 05:00 04/12/17 17:15 04/13/17 09:25 Blood Urea Nitrogen 8 MG/DL 7 MG/DL Creatinine 0.65 MG/DL 0.68 MG/DL Random Glucose 71 MG/DL 98 MG/DL Calcium Level 8.0 MG/DL 8.3 MG/DL Sodium Level 142 MEQ/L 139 MEQ/L Potassium Level 3.6 MEQ/L 3.6 MEQ/L Chloride Level 108 MEQ/L 107 MEQ/L Carbon Dioxide Level 26.3 MEQ/L 25.2 MEQ/L Anion Gap 8 MEQ/L 7 MEQ/L Estimat Glomerular Filtration Rate 125 ML/MIN 119 ML/MIN Vancomycin Level Trough 27.5 MCG/ML 29.0 MCG/ML Random Vancomycin Level 16.5 COMMENT Imaging Last Impressions Lower Extremity Ultrasound 04/08/17 0000 Signed Impressions: Service Date/Time: March 12:47 - CONCLUSION: The study is negative for deep venous thrombosis bilateral lower extremity. Hans Etienne MD Ankle X-Ray 04/08/17 0000 Signed Impressions: Service Date/Time: March 08:03 - CONCLUSION: 1. Prominent soft tissue swelling and diffuse soft tissue calcifications. 2. The osseous structures are intact. Hans Etienne MD Chest X-Ray 04/07/17 1117 Signed Impressions: Service Date/Time: Friday, April 07, 2017 11:38 - CONCLUSION: Normal examination. Kenrick Eaton MD Objective Remarks GENERAL: Awake alert talkative not very cooperative SKIN: Warm and dry. HEAD: Atraumatic. Normocephalic. EYES: Pupils equal and round. No scleral icterus. No injection or drainage. Extraocular muscles intact ENT: No nasal bleeding or discharge. Mucous membranes pink and moist. Tongue midline NECK: Trachea midline. No JVD. Supple CARDIOVASCULAR: Regular rate and rhythm. S1-S2 no S3 or S4 RESPIRATORY: No accessory muscle use. Clear to auscultation. Breath sounds equal bilaterally. GASTROINTESTINAL: Abdomen soft, non-tender, nondistended. Hepatic and splenic margins not palpable. MUSCULOSKELETAL: Extremities without clubbing, cyanosis, . No obvious deformities. Chronic bilateral edema and lymphedema NEUROLOGICAL: Awake and alert. No obvious cranial nerve deficits. Motor grossly within normal limits. Five out of 5 muscle strength in the arms and legs. Normal speech. PSYCHIATRIC: INAppropriate mood and affect; insight and judgment ABnormal. Procedures None Medications and IVs Current Medications Sodium Chloride 1,000 ml @ 999 mls/hr BOLUS ONCE IV Last administered on 11:23; Start 04/07/17 at 11:30; Stop 04/07/17 at 12:30; Status DC Vancomycin HCl 1000 mg/Sodium Chloride 250 ml @ 250 mls/hr ONCE ONCE IV Last administered on 04/07/17 13:46; Start 04/07/17 at 13:30; Stop 04/07/17 at 14 :29; Status DC Acetaminophen (Tylenol) 650 mg Q4H PRN PO TEMP > 100.4 Last administered on 01:37; Start 04/07/17 at 15:00; Stop 04/13/17 at 07:50; Status DC Ondansetron HCl (Zofran Inj) 4 mg Q6H PRN IVP NAUSEA OR VOMITING; Start at 15:00 Heparin Sodium (Porcine) (Heparin Inj) 5,000 units Q8HR SQ Last administered on 04/14/17 06:42; Start 04/07/17 at 22:00 Naloxone HCl (Narcan Inj) 0.4 mg UNSCH PRN IV PUSH SEE LABEL COMMENTS; Start 04/07/17 at 15:00 Senna/Docusate Sodium (Celeste-Colace) 1 tab BID PO Last administered on 21:23; Start 04/07/17 at 21:00 Magnesium Hydroxide (Milk Of Magnesia Liq) 30 ml Q12HR PRN PO Mild constipation ; Start 04/07/17 at 21:00; Stop 04/13/17 at 07:46; Status DC Sennosides (Senokot) 17.2 mg Q12HR PRN PO Moderate constipation; Start at 21:00 Bisacodyl (Dulcolax Supp) 10 mg DAILY PRN RECTAL SEVERE CONSITIPATION; Start 04/07/17 at 16:00 Lactulose (Lactulose Liq) 30 ml DAILY PRN PO SEVERE CONSITIPATION; Start 04/07 at 16:00 Folic Acid (Folate) 1 mg DAILY PO Last administered on 04/12/17 09:03; Start 04/08/17 at 09:00; Stop 04/13/17 at 08:59; Status DC Thiamine HCl (Vitamin B1) 100 mg DAILY PO Last administered on 04/13/17 09:00 ; Start 04/08/17 at 09:00 Multivitamins/ Minerals Therapeutic (Theragran M Tab) 1 tab DAILY PO Last administered on 04/12/17 09:03; Start 04/08/17 at 09:00; Stop 04/13/17 at 08 :59; Status DC Flumazenil (Romazicon Inj) 0.2 mg Q1M PRN IV PUSH SEE LABEL COMMENTS; Start at 15:15; Stop 04/08/17 at 17:00; Status DC Lorazepam (Ativan) 1 mg Q4H PRN PO CIWA 8 - 10; Start 04/07/17 at 15:15; Stop 04/08/17 at 16:57; Status DC Lorazepam (Ativan Inj) 1 mg Q4H PRN IV PUSH CIWA 8 - 10; Start 04/07/17 at 15: 15; Stop 04/08/17 at 16:57; Status DC Lorazepam (Ativan) 2 mg Q2H PRN PO CIWA 11-14; Start 04/07/17 at 15:15; Stop 04/08/17 at 16:57; Status DC Lorazepam (Ativan Inj) 2 mg Q2H PRN IV PUSH CIWA 11-14; Start 04/07/17 at 15: 15; Stop 04/08/17 at 16:57; Status DC Lorazepam (Ativan Inj) 2 mg Q1H PRN IV PUSH CIWA 15-20; Start 04/07/17 at 15: 15; Stop 04/08/17 at 16:57; Status DC Lorazepam (Ativan Inj) 2 mg Q15M PRN IV PUSH CIWA > 20; Start 04/07/17 at 15: 15; Stop 04/08/17 at 16:57; Status DC Haloperidol Lactate (Haldol Inj) 2 mg Q15M PRN IM SEE LABEL COMMENTS; Start at 15:15; Stop 04/08/17 at 16:57; Status DC Nystatin (Mycostatin Powder) 1 applic Q8HR TOPICAL Last administered on 14:00; Start 04/07/17 at 22:00 Petrolatum/Zinc Oxide (Sensi-Care Protective Barrier Oint) 1 applic DAILY TOPICAL Last administered on 04/13/17 09:00; Start 04/08/17 at 21:00 Nystatin (Mycostatin Powder) 1 applic ONCE ONCE TOPICAL Last administered on 04/07/17 17:30; Start 04/07/17 at 17:30; Stop 04/07/17 at 17:31; Status DC Pharmacy Profile Note 0 ml @ 0 mls/hr UNSCH OTHER ; Start 04/08/17 at 14:00 Vancomycin HCl 2250 mg/Sodium Chloride 522.5 ml @ 250 mls/hr Q12H IV ; Start 04/08/17 at 14:00; Stop 04/08/17 at 14:00; Status DC Piperacillin Sod/ Tazobactam Sod 100 ml @ 200 mls/hr Q6H IV Last administered on 04/09/17 13:57; Start 04/08/17 at 14:00; Stop 04/09/17 at 19:17; Status DC Trazodone HCl (Desyrel) 50 mg HS PO Last administered on 04/08/17 19:59; Start 04/08/17 at 21:00; Stop 04/09/17 at 11:28; Status DC Vancomycin HCl 1700 mg/Sodium Chloride 517 ml @ 258.5 mls/ hr Q12H IV Last administered on 04/12/17 05:00; Start 04/08/17 at 17:00; Stop 04/13/17 at 11 :24; Status DC Miscellaneous Information SPECIFIC LAB TO BE GUANAKO... ONCE ONCE .XX ; Start at 21:45; Stop 04/09/17 at 21:45; Status DC Miscellaneous Information SPECIFIC LAB TO BE GUANAKO... ONCE ONCE .XX Last administered on 04/10/17 08:42; Start 04/10/17 at 04:45; Stop 04/10/17 at 04 :46; Status DC Lorazepam (Ativan) 1 mg Q6H PRN PO MODERATE TO SEVERE ANXIETY Last administered on 04/14/17 03:22; Start 04/08/17 at 16:45 Lorazepam (Ativan Inj) 1 mg Q6H PRN IM MODERATE TO SEVERE ANXIETY Last administered on 04/09/17 21:43; Start 04/08/17 at 16:45 Acetaminophen (Tylenol) 650 mg Q4H PRN PO Pain 1-5 or Temp >101F Last administered on 04/13/17 20:41; Start 04/08/17 at 16:45 Magnesium Hydroxide (Milk Of Magnesia Liq) 30 ml DAILY PRN PO MILD CONSTIPATION ; Start 04/08/17 at 16:45 Al Hydrox/Mg Hydrox/Simethicone (Mag-Al Plus Susp Liq) 30 ml Q6H PRN PO DYSPEPSIA; Start 04/08/17 at 16:45 Levothyroxine Sodium (Synthroid) 25 mcg DAILY@0600 PO Last administered on 06:41; Start 04/09/17 at 06:00 Lorazepam (Ativan) 1 mg Q4H PRN PO CIWA 8-10; Start 04/08/17 at 17:00 Lorazepam (Ativan Inj) 1 mg Q4H PRN IV PUSH CIWA 8-10; Start 04/08/17 at 17:00 Lorazepam (Ativan) 2 mg Q2H PRN PO CIWA 11-14; Start 04/08/17 at 17:00 Lorazepam (Ativan Inj) 2 mg Q2H PRN IV PUSH CIWA 11-14; Start 04/08/17 at 17: 00 Lorazepam (Ativan Inj) 2 mg Q1H PRN IV PUSH CIWA 15-20; Start 04/08/17 at 17: 00 Lorazepam (Ativan Inj) 2 mg Q15M PRN IV PUSH CIWA > 20; Start 04/08/17 at 17: 00 Flumazenil (Romazicon Inj) 0.2 mg Q1M PRN IV PUSH SEE LABEL COMMENTS; Start at 17:00 Acetaminophen/ Hydrocodone Bitart ([place] 5-325 Mg) 1 tab Q6H PRN PO PAIN SCALE 6 TO 10 Last administered on 04/14/17 03:22; Start 04/08/17 at 17:15 Trazodone HCl (Desyrel) 100 mg HS PO Last administered on 04/09/17 21:00; Start 04/09/17 at 21:00; Stop 04/10/17 at 15:56; Status DC Venlafaxine HCl (Effexor Xr) 75 mg DAILY PO Last administered on 04/12/17 09: 02; Start 04/10/17 at 09:00; Stop 04/12/17 at 08:56; Status DC Venlafaxine HCl (Effexor Xr) 37.5 mg ONCE ONCE PO Last administered on 12:30; Start 04/09/17 at 11:30; Stop 04/09/17 at 11:31; Status DC Enoxaparin Sodium (Lovenox Inj) 40 mg Q24H SQ ; Start 04/09/17 at 14:45; Status UNV Furosemide (Lasix) 20 mg DAILY PO Last administered on 04/13/17 09:00; Start 04/10/17 at 09:00 Trazodone HCl (Desyrel) 150 mg HS PO Last administered on 04/11/17 21:14; Start 04/10/17 at 21:00; Stop 04/12/17 at 08:58; Status DC Clonidine (Catapres) 0.1 mg Q8H PRN PO SBP >180 OR DBP >100 Last administered on 04/10/17 19:19; Start 04/10/17 at 19:15 Miscellaneous Information SPECIFIC LAB TO BE DRAWN:VANCO LEVEL DATE... ONCE ONCE .XX ; Start 04/12/17 at 04:45; Stop 04/12/17 at 04:46; Status DC Venlafaxine HCl (Effexor Xr) 150 mg DAILY PO Last administered on 04/13/17 09 :00; Start 04/12/17 at 10:00 Trazodone HCl (Desyrel) 200 mg HS PO Last administered on 04/13/17 20:41; Start 04/12/17 at 21:00 Miscellaneous Information SPECIFIC LAB TO BE GUANAKO... ONCE ONCE .XX ; Start at 16:45; Stop 04/12/17 at 16:46; Status DC Nifedipine (Procardia Xl) 30 mg DAILY PO Last administered on 04/13/17 09:00 ; Start 04/12/17 at 14:30 Vancomycin HCl 1750 mg/Sodium Chloride 517.5 ml @ 258.5 mls/ hr Q18H IV Last administered on 04/13/17 14:00; Start 04/13/17 at 14:00 Miscellaneous Information SPECIFIC LAB TO BE DRAWN:VANCOMYCIN TROUGH DATE TO... ONCE ONCE .XX ; Start 04/15/17 at 01:45; Stop 04/15/17 at 01:46 Lactic Acid (Lac-Hydrin 12% Lotion) 1 applic BID TOPICAL Last administered on 04/13/17 20:41; Start 04/13/17 at 16:00 A/P Problem List: (1) Falls ICD Code: W19.XXXA - Unspecified fall, initial encounter Status: Acute (2) General weakness ICD Code: R53.1 - Weakness Status: Acute Assessment and Plan 61-year-old male with history of morbid obesity, alcohol abuse, hypothyroidism, depression, chronic lower extremity edema, MU noncompliant with CPAP, gastric bypass, presents after a fall with weakness. Fall, Generalized Weakness, Inability to Care for Self: suspect multifactorial with chronic deconditioning, alcohol abuse, extensive BLE edema, morbid obesity. CXR images reviewed, no acute findings. -daily PT -patient found in urine/feces, extremely poor hygiene, likely needs placement -case management consulted - interactive Chronic Venous Stasis Dermatitis: Chronic leg swelling-- gradually improved Cellulitis LE- L>R- improving - MRSA Echo unremarkable on IV Vanco Wound care and podiatry consultation appreciated, Monitor ID ff- I s/w cultures with Dr. Corona- she will review sensitivity and make recommendations to choice of po antibiotics for DC soon control edema-low dose diuretic- Lasix 20 mg daily Hypertension- better readings continue on Procardia 30 mg XL daily continue on diuretic Lasix 20 mg daily Morbid Obesity: Patient weighs 150kg, BMI 48.8. Patient is already s/p bariatric surgery with gastric bypass. -counseled on weight reduction -heart healthy diet Hypothyroidism: -TSH WNL -restart Synthroid 25 mcg po daily Alcohol Abuse: patient reports drinking 1 L of wine nightly -counseled on cessation -start on thiamine/folate/MVI -CIWA protocol with ativan prn -seizure precautions DVT Prophylaxis: Heparin SQ, CM working on placement - [place] in [facility] likely will take him- 2- 3 days-- CM working on paperworks Discharge Planning Pending psychiatry and case management placement Charles Bagley DO Apr 14, 2017 08:52
[2017-04-14] MEDS: NIFEdipine 30 MG SUSTAINED RELEASE TAB PO SCH (09:00)
[2017-04-14] MEDS: DOCUSATE SODIUM 50 MG/SENNA 8.6 MG TAB PO SCH ×2 (09:00→20:51)
[2017-04-14] MEDS: LACTIC ACID (AMMONIUM LACTATE) 12% LOTION 225 GM BTL TOPICAL SCH ×2 (09:00→20:51)
[2017-04-14] MEDS: VENLAFAXINE HCL XR 75 MG CAP PO SCH (09:00)
[2017-04-14] MEDS: THIAMINE HCL 100 MG TAB PO SCH (09:00)
[2017-04-14] MEDS: PETROLATUM 49%/ZINC OXIDE 15% 4 OUNCE TUBE TOPICAL SCH (09:00)
[2017-04-14] MEDS: FUROSEMIDE 20 MG TAB PO SCH (09:00)
--- NOTE | 2017-04-14 10:51 | HHI.PYPN ---
Subjective Remarks Patient seen for follow-up, chart reviewed. Patient found lying in hospital bed with covers over his head but was able to engage in interview today. Patient states that he's been feeling "slow, blue, depressed" referring to recent psychosocial stressors including his having left him and him and daughter not having visited recently. Patient this states that he feels the medication is helping in his depressed mood has been now 7 out of 10 with 10 being worst and states that he is feeling better every day. Patient denies any suicide ideation at this time and states that he started to eat little better today. Patient agreeable to be referred to a senior care facility or home with home services once discharged from the hospital. Review of Systems Except as stated in HPI: all other systems reviewed are Neg Mental Status Examination Appearance: Appropriate Consciousness: Alert Orientation: x4 Motor Activity: Normal gait Speech: Unremarkable Language: Adequate Fund of Knowledge: Adequate Attention and Concentration: Adequate Memory: Unremarkable Mood: Other (better) Affect: Blunt Thought Process & Associations: Intact, Goal directed, Linear Thought Content: Appropriate Hallucination Type: None Delusion Type: None Suicidal Ideation: No Suicidal Plan: No Suicidal Intention: No Homicidal Ideation: No Homicidal Plan: No Homicidal Intention: No Insight: Fair Judgment: Adequate Results Labs Labs reviewed. Date/Time Source Procedure Growth Status 04/07/17 11:36 Blood Peripheral Aerobic Blood Culture - Final NO GROWTH IN 5 DAYS Complete 04/07/17 11:36 Blood Peripheral Anaerobic Blood Culture - Final NO GROWTH IN 5 DAYS Complete 04/07/17 11:30 Urine Catheterized Urine Urine Culture - Final NO GROWTH IN 48 HOURS. Complete 04/08/17 16:58 Wound Ankle Gram Stain - Final Complete 04/08/17 16:58 Wound Culture - Final S. Aureus Mrsa Acinetobacter Baumannii/Haemol Complete Vitals/IOs Vital Signs Date Time Temp Pulse Resp B/P (MAP) Pulse Ox O2 Delivery O2 Flow Rate FiO2 04/14/17 05:00 97.1 68 18 115/56 (75) 97 04/10/17 11:35 21 Intake and Output 04/14/17 04/14/17 04/15/17 08:00 16:00 00:00 Intake Total 997.5 ml Balance 997.5 ml Assessment & Plan Problem List: (1) Adjustment disorder with depressed mood ICD Codes: F43.21 - Adjustment disorder with depressed mood Assessment & Plan Patient at this time continues to be noted to be depressed due to recent psychosocial stressors but states that his depression is improving and denies suicidal ideations at this time. Patient continues to be noted to have poor appetite, mostly in bed and requires further encouragement to get himself out of bed despite being on contact precautions and be able to be transfer self to wheelchair. We'll increase venlafaxine XR to 225 g by mouth daily for depression. Continue with the medications as per primary medical team. Discharge planning in progress Justification for Cont. Inpt. At risk for further decompensation if at lower level of care Discharge Planning Patient to be discharged to a senior care facility or home with home health services on psychiatric and medical discharge Tc Higuera MD Apr 14, 2017 10:51
[2017-04-14] MEDS ORDERED: VENLAFAXINE HCL XR 75 MG CAP PO ONE (11:00)
--- NOTE | 2017-04-14 11:55 | PD.TTN ---
Patient Problems 1. Discharge planning 2. Medication compliance 3. Knowledge deficit 4. Lack of coping skills Progress Toward Goals Provider Present: Dr. Katherin Higuera Provider Input: Patient at this time continues to report feeling depressed, with suicide ideation per doctor, patients Effexor will be increased to 150 mg and trazodone 200 mg by mouth at bedtime for sleep disturbance. 04/14/17 Patient denies suicidal ideation. Possible discharge tomorrow with home health care service. Patient needs another day to stablize, meets criteria Nurse(s) Present: VICENTA Coates Nurse(s) Input: Patient is not eating most meals, he has agreed to take his medication 04/14/17 Patient's nurse reports patient is calm, cooperative, medication compliant. working with patient requires wound care. Patient decribes his mood as fine, denies suicidal ideation. Psychiatric Counselors Present: TORI Carpenter, RADHA Cook Psych Therapist Input: Counselor will review with patient his goals, and treatment plan, and assist with dc planning with appropriate service/or placement 04/14/17 Patient has been accepted to [facility]. Patient will be discharged once medically cleared. Group Spec/RT/OT/BASURTO Present: SB Khan, Cash Bernal, OT Group Spec/RT/OT/BASURTO Input: Per OT patient is not attending groups or activities 04/14/17 Patient does not attend groups will encourage. Documentation Scribe: RADHA Cook Elizabeth [facility] Apr 14, 2017 11:55
[2017-04-14 17:54] VITALS: BP 121/79; PULSE 91; RESP 20; TEMP 98.2; O2SAT 95
--- NOTE | 2017-04-14 18:19 | HHI.PR ---
Addendum to Inpatient Note Additional Information labs were reviewed Microbiology Date/Time Source Procedure Growth Status 04/07/17 11:36 Blood Peripheral Aerobic Blood Culture - Final NO GROWTH IN 5 DAYS Complete 04/07/17 11:36 Blood Peripheral Anaerobic Blood Culture - Final NO GROWTH IN 5 DAYS Complete 04/07/17 11:30 Urine Catheterized Urine Urine Culture - Final NO GROWTH IN 48 HOURS. Complete 04/08/17 16:58 Wound Ankle Gram Stain - Final Complete 04/08/17 16:58 Wound Culture - Final S. Aureus Mrsa Acinetobacter Baumannii/Haemol Complete abx were adjusted: dc vancomycin doxycyluine + bactrim will follow Johanne Corona MD Apr 14, 2017 18:19
[2017-04-14] MEDS: DOXYCYCLINE HYCLATE 100 MG TAB PO SCH (20:51)
[2017-04-14] MEDS: SULFAMETHOXAZOLE-TRIMETHOPRIM DS 800-160 MG TAB PO SCH (20:51)
[2017-04-14] MEDS: traZODone HCL 100 MG TAB PO SCH (20:52)
[2017-04-15] MEDS ORDERED: PHARMACY ORDERED LAB ONE (01:45)
[2017-04-15] MEDS: HEPARIN SODIUM - SQ 10,000 UNITS/ML VIAL SQ SCH ×3 (06:05→21:05)
[2017-04-15] MEDS: LEVOTHYROXINE SODIUM 25 MCG TAB PO SCH (06:05)
[2017-04-15] MEDS: ACETAMINOPHEN/HYDROcodone 325 MG/5 MG TAB PO PRN ×3 (06:05→18:03)
[2017-04-15] MEDS: NYSTATIN 100,000 U/GM PWD 15 GM BTL TOPICAL SCH ×3 (06:06→22:00)
[2017-04-15 06:07] VITALS: BP 143/61; PULSE 77; RESP 18; TEMP 97.5; O2SAT 96
[2017-04-15] MEDS: LORazepam 1 MG TAB PO PRN ×2 (06:11→11:44)
[2017-04-15] MEDS: DOXYCYCLINE HYCLATE 100 MG TAB PO SCH ×2 (09:00→21:04)
[2017-04-15] MEDS: NIFEdipine 30 MG SUSTAINED RELEASE TAB PO SCH (09:00)
[2017-04-15] MEDS: SULFAMETHOXAZOLE-TRIMETHOPRIM DS 800-160 MG TAB PO SCH ×2 (09:00→21:04)
[2017-04-15] MEDS: THIAMINE HCL 100 MG TAB PO SCH (09:00)
[2017-04-15] MEDS: FUROSEMIDE 20 MG TAB PO SCH (09:00)
[2017-04-15] MEDS: PETROLATUM 49%/ZINC OXIDE 15% 4 OUNCE TUBE TOPICAL SCH (09:00)
[2017-04-15] MEDS: VENLAFAXINE HCL XR 75 MG CAP PO SCH (09:00)
[2017-04-15] MEDS: DOCUSATE SODIUM 50 MG/SENNA 8.6 MG TAB PO SCH ×2 (09:00→21:04)
[2017-04-15] MEDS: LACTIC ACID (AMMONIUM LACTATE) 12% LOTION 225 GM BTL TOPICAL SCH ×2 (09:00→21:05)
--- NOTE | 2017-04-15 09:23 | HHI.PR ---
Subjective Remarks No current complaints Has cellulitis of the lower extremity as well as chronic lymphedema bilaterally Discussed with patient and RN Has history of gastric bypass but has regained all the weight 04-15 SWITCHED TO DOXYCYCLINE AND BACTRIM BY ID COMPLAINING OF PAIN- STATES IT IS CHRONIC WILL ADJUST MEDICATION Objective Vitals Vital Signs Date Time Temp Pulse Resp B/P (MAP) Pulse Ox O2 Delivery O2 Flow Rate FiO2 04/15/17 07:05 20 04/15/17 06:07 97.5 77 18 143/61 (88) 96 04/14/17 17:54 98.2 91 20 121/79 (93) 95 I/O 04/14/17 04/14/17 04/14/17 04/15/17 04/15/17 04/15/17 07:00 15:00 23:00 07:00 15:00 23:00 Intake Total 1597.5 ml 360 ml 720 ml 120 ml Balance 1597.5 ml 360 ml 720 ml 120 ml Intake Oral 1080 ml 360 ml 720 ml 120 ml IV Total 517.5 ml # Voids 3 4 2 Result Diagram: 04/13/17 0925 Other Results Laboratory Tests Test 04/12/17 17:15 04/13/17 09:25 Vancomycin Level Trough 29.0 MCG/ML Blood Urea Nitrogen 7 MG/DL Creatinine 0.68 MG/DL Random Glucose 98 MG/DL Calcium Level 8.3 MG/DL Sodium Level 139 MEQ/L Potassium Level 3.6 MEQ/L Chloride Level 107 MEQ/L Carbon Dioxide Level 25.2 MEQ/L Anion Gap 7 MEQ/L Estimat Glomerular Filtration Rate 119 ML/MIN Random Vancomycin Level 16.5 COMMENT Imaging Last Impressions Lower Extremity Ultrasound 04/08/17 0000 Signed Impressions: Service Date/Time: March 12:47 - CONCLUSION: The study is negative for deep venous thrombosis bilateral lower extremity. Hans Etienne MD Ankle X-Ray 04/08/17 0000 Signed Impressions: Service Date/Time: March 08:03 - CONCLUSION: 1. Prominent soft tissue swelling and diffuse soft tissue calcifications. 2. The osseous structures are intact. Hans Etienne MD Chest X-Ray 04/07/17 1117 Signed Impressions: Service Date/Time: Friday, April 07, 2017 11:38 - CONCLUSION: Normal examination. Kenrick Eaton MD Objective Remarks GENERAL: Awake alert talkative not very cooperative SKIN: Warm and dry. HEAD: Atraumatic. Normocephalic. EYES: Pupils equal and round. No scleral icterus. No injection or drainage. Extraocular muscles intact ENT: No nasal bleeding or discharge. Mucous membranes pink and moist. Tongue midline NECK: Trachea midline. No JVD. Supple CARDIOVASCULAR: Regular rate and rhythm. S1-S2 no S3 or S4 RESPIRATORY: No accessory muscle use. Clear to auscultation. Breath sounds equal bilaterally. GASTROINTESTINAL: Abdomen soft, non-tender, nondistended. Hepatic and splenic margins not palpable. MUSCULOSKELETAL: Extremities without clubbing, cyanosis, . No obvious deformities. Chronic bilateral edema and lymphedema NEUROLOGICAL: Awake and alert. No obvious cranial nerve deficits. Motor grossly within normal limits. Five out of 5 muscle strength in the arms and legs. Normal speech. PSYCHIATRIC: INAppropriate mood and affect; insight and judgment ABnormal. Procedures None Medications and IVs Current Medications Sodium Chloride 1,000 ml @ 999 mls/hr BOLUS ONCE IV Last administered on 11:23; Start 04/07/17 at 11:30; Stop 04/07/17 at 12:30; Status DC Vancomycin HCl 1000 mg/Sodium Chloride 250 ml @ 250 mls/hr ONCE ONCE IV Last administered on 04/07/17 13:46; Start 04/07/17 at 13:30; Stop 04/07/17 at 14 :29; Status DC Acetaminophen (Tylenol) 650 mg Q4H PRN PO TEMP > 100.4 Last administered on 01:37; Start 04/07/17 at 15:00; Stop 04/13/17 at 07:50; Status DC Ondansetron HCl (Zofran Inj) 4 mg Q6H PRN IVP NAUSEA OR VOMITING; Start at 15:00 Heparin Sodium (Porcine) (Heparin Inj) 5,000 units Q8HR SQ Last administered on 04/15/17 06:05; Start 04/07/17 at 22:00 Naloxone HCl (Narcan Inj) 0.4 mg UNSCH PRN IV PUSH SEE LABEL COMMENTS; Start 04/07/17 at 15:00 Senna/Docusate Sodium (Celeste-Colace) 1 tab BID PO Last administered on 20:51; Start 04/07/17 at 21:00 Magnesium Hydroxide (Milk Of Magnesia Liq) 30 ml Q12HR PRN PO Mild constipation ; Start 04/07/17 at 21:00; Stop 04/13/17 at 07:46; Status DC Sennosides (Senokot) 17.2 mg Q12HR PRN PO Moderate constipation; Start at 21:00 Bisacodyl (Dulcolax Supp) 10 mg DAILY PRN RECTAL SEVERE CONSITIPATION; Start 04/07/17 at 16:00 Lactulose (Lactulose Liq) 30 ml DAILY PRN PO SEVERE CONSITIPATION; Start 04/07 at 16:00 Folic Acid (Folate) 1 mg DAILY PO Last administered on 04/12/17 09:03; Start 04/08/17 at 09:00; Stop 04/13/17 at 08:59; Status DC Thiamine HCl (Vitamin B1) 100 mg DAILY PO Last administered on 04/14/17 09:00 ; Start 04/08/17 at 09:00 Multivitamins/ Minerals Therapeutic (Theragran M Tab) 1 tab DAILY PO Last administered on 04/12/17 09:03; Start 04/08/17 at 09:00; Stop 04/13/17 at 08 :59; Status DC Flumazenil (Romazicon Inj) 0.2 mg Q1M PRN IV PUSH SEE LABEL COMMENTS; Start at 15:15; Stop 04/08/17 at 17:00; Status DC Lorazepam (Ativan) 1 mg Q4H PRN PO CIWA 8 - 10; Start 04/07/17 at 15:15; Stop 04/08/17 at 16:57; Status DC Lorazepam (Ativan Inj) 1 mg Q4H PRN IV PUSH CIWA 8 - 10; Start 04/07/17 at 15: 15; Stop 04/08/17 at 16:57; Status DC Lorazepam (Ativan) 2 mg Q2H PRN PO CIWA 11-14; Start 04/07/17 at 15:15; Stop 04/08/17 at 16:57; Status DC Lorazepam (Ativan Inj) 2 mg Q2H PRN IV PUSH CIWA 11-14; Start 04/07/17 at 15: 15; Stop 04/08/17 at 16:57; Status DC Lorazepam (Ativan Inj) 2 mg Q1H PRN IV PUSH CIWA 15-20; Start 04/07/17 at 15: 15; Stop 04/08/17 at 16:57; Status DC Lorazepam (Ativan Inj) 2 mg Q15M PRN IV PUSH CIWA > 20; Start 04/07/17 at 15: 15; Stop 04/08/17 at 16:57; Status DC Haloperidol Lactate (Haldol Inj) 2 mg Q15M PRN IM SEE LABEL COMMENTS; Start at 15:15; Stop 04/08/17 at 16:57; Status DC Nystatin (Mycostatin Powder) 1 applic Q8HR TOPICAL Last administered on 06:06; Start 04/07/17 at 22:00 Petrolatum/Zinc Oxide (Sensi-Care Protective Barrier Oint) 1 applic DAILY TOPICAL Last administered on 04/14/17 09:00; Start 04/08/17 at 21:00 Nystatin (Mycostatin Powder) 1 applic ONCE ONCE TOPICAL Last administered on 04/07/17 17:30; Start 04/07/17 at 17:30; Stop 04/07/17 at 17:31; Status DC Pharmacy Profile Note 0 ml @ 0 mls/hr UNSCH OTHER ; Start 04/08/17 at 14:00; Stop 04/14/17 at 18:18; Status DC Vancomycin HCl 2250 mg/Sodium Chloride 522.5 ml @ 250 mls/hr Q12H IV ; Start 04/08/17 at 14:00; Stop 04/08/17 at 14:00; Status DC Piperacillin Sod/ Tazobactam Sod 100 ml @ 200 mls/hr Q6H IV Last administered on 04/09/17 13:57; Start 04/08/17 at 14:00; Stop 04/09/17 at 19:17; Status DC Trazodone HCl (Desyrel) 50 mg HS PO Last administered on 04/08/17 19:59; Start 04/08/17 at 21:00; Stop 04/09/17 at 11:28; Status DC Vancomycin HCl 1700 mg/Sodium Chloride 517 ml @ 258.5 mls/ hr Q12H IV Last administered on 04/12/17 05:00; Start 04/08/17 at 17:00; Stop 04/13/17 at 11 :24; Status DC Miscellaneous Information SPECIFIC LAB TO BE GUANAKO... ONCE ONCE .XX ; Start at 21:45; Stop 04/09/17 at 21:45; Status DC Miscellaneous Information SPECIFIC LAB TO BE GUANAKO... ONCE ONCE .XX Last administered on 04/10/17 08:42; Start 04/10/17 at 04:45; Stop 04/10/17 at 04 :46; Status DC Lorazepam (Ativan) 1 mg Q6H PRN PO MODERATE TO SEVERE ANXIETY Last administered on 04/15/17 06:11; Start 04/08/17 at 16:45 Lorazepam (Ativan Inj) 1 mg Q6H PRN IM MODERATE TO SEVERE ANXIETY Last administered on 04/09/17 21:43; Start 04/08/17 at 16:45 Acetaminophen (Tylenol) 650 mg Q4H PRN PO Pain 1-5 or Temp >101F Last administered on 04/13/17 20:41; Start 04/08/17 at 16:45 Magnesium Hydroxide (Milk Of Magnesia Liq) 30 ml DAILY PRN PO MILD CONSTIPATION ; Start 04/08/17 at 16:45 Al Hydrox/Mg Hydrox/Simethicone (Mag-Al Plus Susp Liq) 30 ml Q6H PRN PO DYSPEPSIA; Start 04/08/17 at 16:45 Levothyroxine Sodium (Synthroid) 25 mcg DAILY@0600 PO Last administered on 06:05; Start 04/09/17 at 06:00 Lorazepam (Ativan) 1 mg Q4H PRN PO CIWA 8-10; Start 04/08/17 at 17:00 Lorazepam (Ativan Inj) 1 mg Q4H PRN IV PUSH CIWA 8-10; Start 04/08/17 at 17:00 Lorazepam (Ativan) 2 mg Q2H PRN PO CIWA 11-14; Start 04/08/17 at 17:00 Lorazepam (Ativan Inj) 2 mg Q2H PRN IV PUSH CIWA 11-14; Start 04/08/17 at 17: 00 Lorazepam (Ativan Inj) 2 mg Q1H PRN IV PUSH CIWA 15-20; Start 04/08/17 at 17: 00 Lorazepam (Ativan Inj) 2 mg Q15M PRN IV PUSH CIWA > 20; Start 04/08/17 at 17: 00 Flumazenil (Romazicon Inj) 0.2 mg Q1M PRN IV PUSH SEE LABEL COMMENTS; Start at 17:00 Acetaminophen/ Hydrocodone Bitart ([place] 5-325 Mg) 1 tab Q6H PRN PO PAIN SCALE 6 TO 10 Last administered on 04/15/17 06:05; Start 04/08/17 at 17:15 Trazodone HCl (Desyrel) 100 mg HS PO Last administered on 04/09/17 21:00; Start 04/09/17 at 21:00; Stop 04/10/17 at 15:56; Status DC Venlafaxine HCl (Effexor Xr) 75 mg DAILY PO Last administered on 04/12/17 09: 02; Start 04/10/17 at 09:00; Stop 04/12/17 at 08:56; Status DC Venlafaxine HCl (Effexor Xr) 37.5 mg ONCE ONCE PO Last administered on 12:30; Start 04/09/17 at 11:30; Stop 04/09/17 at 11:31; Status DC Enoxaparin Sodium (Lovenox Inj) 40 mg Q24H SQ ; Start 04/09/17 at 14:45; Status UNV Furosemide (Lasix) 20 mg DAILY PO Last administered on 04/14/17 09:00; Start 04/10/17 at 09:00 Trazodone HCl (Desyrel) 150 mg HS PO Last administered on 04/11/17 21:14; Start 04/10/17 at 21:00; Stop 04/12/17 at 08:58; Status DC Clonidine (Catapres) 0.1 mg Q8H PRN PO SBP >180 OR DBP >100 Last administered on 04/10/17 19:19; Start 04/10/17 at 19:15 Miscellaneous Information SPECIFIC LAB TO BE DRAWN:VANCO LEVEL DATE... ONCE ONCE .XX ; Start 04/12/17 at 04:45; Stop 04/12/17 at 04:46; Status DC Venlafaxine HCl (Effexor Xr) 150 mg DAILY PO Last administered on 04/14/17 09 :00; Start 04/12/17 at 10:00; Stop 04/14/17 at 10:51; Status DC Trazodone HCl (Desyrel) 200 mg HS PO Last administered on 04/14/17 20:52; Start 04/12/17 at 21:00 Miscellaneous Information SPECIFIC LAB TO BE GUANAKO... ONCE ONCE .XX ; Start at 16:45; Stop 04/12/17 at 16:46; Status DC Nifedipine (Procardia Xl) 30 mg DAILY PO Last administered on 04/14/17 09:00 ; Start 04/12/17 at 14:30 Vancomycin HCl 1750 mg/Sodium Chloride 517.5 ml @ 258.5 mls/ hr Q18H IV Last administered on 04/14/17 08:00; Start 04/13/17 at 14:00; Stop 04/14/17 at 18 :18; Status DC Miscellaneous Information SPECIFIC LAB TO BE DRAWN:VANCOMYCIN TROUGH DATE TO... ONCE ONCE .XX ; Start 04/15/17 at 01:45; Stop 04/15/17 at 01:46; Status DC Lactic Acid (Lac-Hydrin 12% Lotion) 1 applic BID TOPICAL Last administered on 04/14/17 20:51; Start 04/13/17 at 16:00 Venlafaxine HCl (Effexor Xr) 225 mg DAILY PO ; Start 04/15/17 at 09:00 Venlafaxine HCl (Effexor Xr) 75 mg ONCE ONCE PO Last administered on 11:00; Start 04/14/17 at 11:00; Stop 04/14/17 at 11:40; Status DC Doxycycline Hyclate (Vibratab) 100 mg Q12HR PO Last administered on 04/14/17 20:51; Start 04/14/17 at 21:00 Trimethoprim/ Sulfamethoxazole (Bactrim Ds 800-160 Mg) 1 tab Q12HR PO Last administered on 04/14/17 20:51; Start 04/14/17 at 21:00 A/P Problem List: (1) Falls ICD Code: W19.XXXA - Unspecified fall, initial encounter Status: Acute (2) General weakness ICD Code: R53.1 - Weakness Status: Acute Assessment and Plan 61-year-old male with history of morbid obesity, alcohol abuse, hypothyroidism, depression, chronic lower extremity edema, MU noncompliant with CPAP, gastric bypass, presents after a fall with weakness. Fall, Generalized Weakness, Inability to Care for Self: suspect multifactorial with chronic deconditioning, alcohol abuse, extensive BLE edema, morbid obesity. CXR images reviewed, no acute findings. -daily PT -patient found in urine/feces, extremely poor hygiene, likely needs placement -case management consulted - interactive Chronic Venous Stasis Dermatitis: Chronic leg swelling-- gradually improved Cellulitis LE- L>R- improving - MRSA SWITCHED TO DOXYCYCLINE AND BACTRIM BY ID control edema-low dose diuretic- Lasix 20 mg daily Hypertension- better readings continue on Procardia 30 mg XL daily continue on diuretic Lasix 20 mg daily Morbid Obesity: Patient weighs 150kg, BMI 48.8. Patient is already s/p bariatric surgery with gastric bypass. -counseled on weight reduction -heart healthy diet Hypothyroidism: -TSH WNL -restart Synthroid 25 mcg po daily Alcohol Abuse: patient reports drinking 1 L of wine nightly -counseled on cessation -start on thiamine/folate/MVI -CIWA protocol with ativan prn -seizure precautions CHRONIC PAIN HAS NORCO NEEDED-- WILL MAKE NAPROSYN AVAILABLE FOR CHRONIC JOINT PAIN ETC DVT Prophylaxis: Heparin SQ, CM working on placement - Ramesh Katz in [facility] likely will take him- 2- 3 days-- CM working on paperworks Discharge Planning Pending psychiatry and case management placement Charles Bagley DO Apr 15, 2017 09:23
[2017-04-15] MEDS ORDERED: NAPROXEN 500 MG TAB PO PRN (09:30)
[2017-04-15] MEDS: NAPROXEN 500 MG TAB PO SCH ×2 (10:00→21:04)
--- NOTE | 2017-04-15 12:08 | HHI.PYPN ---
Subjective Remarks Patient seen for follow-up, chart review. Patient found lying in hospital bed, cooperative with interview and seen by production underwriter, therapist, and outpatient therapist. Patient states that he continues to feel somewhat depressed with decreased appetite and motivation but states that his mood has been better. He denies any suicidal ideations at this time. He just reports having increased pain and requesting increase analgesics which she states in part has kept him from being able to move out of his bed onto the wheelchair in his room. Patient states she would like to have more interactions with others but be that he is in contact precaution limits is possibility. Patient undecided if he is willing to go to a long-term facility postdischarge or homicidal services. It was encouraged patient agreed to long-term facility as he would benefit him prior to being discharged home and later assess whether he will continue to require home services at that time. He agrees to this for now. Review of Systems Except as stated in HPI: all other systems reviewed are Neg Mental Status Examination Appearance: Appropriate Consciousness: Alert Orientation: x4 Motor Activity: Normal gait Speech: Unremarkable Language: Adequate Fund of Knowledge: Adequate Attention and Concentration: Adequate Memory: Unremarkable Mood: Other (better) Affect: Sad (less so today) Thought Process & Associations: Intact, Goal directed, Linear Thought Content: Appropriate Hallucination Type: None Delusion Type: None Suicidal Ideation: No Suicidal Plan: No Suicidal Intention: No Homicidal Ideation: No Homicidal Plan: No Homicidal Intention: No Insight: Fair Judgment: Adequate Results Labs Labs reviewed. Date/Time Source Procedure Growth Status 04/07/17 11:36 Blood Peripheral Aerobic Blood Culture - Final NO GROWTH IN 5 DAYS Complete 04/07/17 11:36 Blood Peripheral Anaerobic Blood Culture - Final NO GROWTH IN 5 DAYS Complete 04/07/17 11:30 Urine Catheterized Urine Urine Culture - Final NO GROWTH IN 48 HOURS. Complete 04/08/17 16:58 Wound Ankle Gram Stain - Final Complete 04/08/17 16:58 Wound Culture - Final S. Aureus Mrsa Acinetobacter Baumannii/Haemol Complete Vitals/IOs Vital Signs Date Time Temp Pulse Resp B/P (MAP) Pulse Ox O2 Delivery O2 Flow Rate FiO2 04/15/17 07:05 20 04/15/17 06:07 97.5 77 143/61 (88) 96 Intake and Output 04/15/17 04/15/17 04/16/17 08:00 16:00 00:00 Intake Total 120 ml Balance 120 ml Assessment & Plan Problem List: (1) Adjustment disorder with depressed mood ICD Codes: F43.21 - Adjustment disorder with depressed mood Assessment & Plan Patient at this time continues report decreased appetite, decreased motivation, as well as depressed mood but states that is getting better. He has noted to be mostly in bed and was encouraged to transfer to wheelchair during the day which she states she will try. Patient states that he has been having more pain than usual this requesting increase in analgesics to address the same. Patient reports that he is considering to attend long-term facility or home with home health services. Patient was counseled on importance of recommendations attending long-term facility to provide patient with more services prior to his discharge home which he states understands. Patient denies any suicide ideation at this time. Patient will continue on current treatment as it was recently increased yesterday. If patient continues to improve patient likely for discharge soon to skilled living facility. Justification for Cont. Inpt. At risk for further decompensation if at lower level of care Discharge Planning Patient discharge to long-term facility or home with home services upon psychiatric and medical discharge Tc Higuera MD Apr 15, 2017 12:08
--- NOTE | 2017-04-15 14:18 | PD.WCN.NOT ---
Wound Consult Description: Patient seen for Chamorro (unna's) boot change Communicated with: VICENTA Waterman Recommendation: Please change Chamorro boot eto LLE every 3 to 5 days as follows Apply Calamine unna boot, followed by rolled gauze and Coban wrap. Please elevate BLE Additional Information: Patient seen on for Chamorro (unna's boot) change to L leg. Per patient Doctor looked at leg yesterday and wrapped leg. L Leg was noted with Unna boot with calamine, rolled gauze and elastic wrap. Compression wraps in place were noted with wrinkles. Removed compression wraps in place to reveal shallow open wound to L pettit, measuring ~1cm x ~0.8cm x ~<0.1cm. Wound appears partial thickness with 100% pink tissue.Wound drainage is active, minimal and serous. Intact scabs still noted to L medial ankle. Cleansed L leg with soap and water and pat dry. Applied Optilock dressing over wound to L pettit and then wrapped L leg with Calamine Unna's boot wrap in modified spiral fashion with fanning and 50% overlap, from just behind toes to two finger widths below bend of knee. Applied rolled gauze over Unna's boot wrap. Finally applied Coban 4 inch in spiral fashion from just behind the toes up to two finger widths below bend of knee. Jelena Ding [facility] Apr 15, 2017 14:18
--- NOTE | 2017-04-15 14:19 | HHI.IDPN ---
Subjective Subjective Remarks doing well no c/o Antibiotics clinda TS Allergies: Coded Allergies: No Known Allergies (Verified Allergy, Unknown, 04/07/17) Objective . Vital Signs Date Time Temp Pulse Resp B/P (MAP) Pulse Ox O2 Delivery O2 Flow Rate FiO2 04/15/17 07:05 20 04/15/17 06:07 97.5 77 18 143/61 (88) 96 04/14/17 17:54 98.2 91 20 121/79 (93) 95 04/15/17 04/15/17 04/16/17 15:00 23:00 07:00 Intake Total 0 ml Balance 0 ml Intake Oral 0 ml Imaging Last Impressions Lower Extremity Ultrasound 04/08/17 0000 Signed Impressions: Service Date/Time: March 12:47 - CONCLUSION: The study is negative for deep venous thrombosis bilateral lower extremity. Hans Etienne MD Ankle X-Ray 04/08/17 0000 Signed Impressions: Service Date/Time: March 08:03 - CONCLUSION: 1. Prominent soft tissue swelling and diffuse soft tissue calcifications. 2. The osseous structures are intact. Hans Etienne MD Chest X-Ray 04/07/17 1117 Signed Impressions: Service Date/Time: Friday, April 07, 2017 11:38 - CONCLUSION: Normal examination. Kenrick Eaton MD Physical Exam CONSTITUTIONAL/GENERAL: This is a morbidly obese male patient, in no apparent distress. OOB in w/c TUBES/LINES/DRAINS: SKIN: No jaundice, rashes, or lesions. CARDIOVASCULAR: Regular rate and rhythm without murmurs, gallops, or rubs. No JVD. Peripheral pulses symmetric. RESPIRATORY/CHEST: Symmetric, unlabored respirations. Clear to auscultation. Breath sounds equal bilaterally. No wheezes, rales, or rhonchi. GASTROINTESTINAL: Abdomen soft, non-tender, nondistended. No hepato-splenomegaly , or palpable masses. Bowel sounds present. MUSCULOSKELETAL: Extremities without clubbing, cyanosis, less prominent edema,no redness NEUROLOGICAL: Awake and alert. Follows commands. Clear speech. Moves all extremities. PSYCHIATRIC: Pleasant, cooperative, affect is flat Assessment & Plan Remarks Morbid obesity chronic venostasis LLE cellulitis with infected venostasis wounds as port of entry, growing Acinetobacter and MRSA cont doxy, bactrim up to 2 weeks Johanne Corona MD Apr 15, 2017 14:19
[2017-04-15 18:23] VITALS: BP 154/77; PULSE 73; RESP 19; TEMP 97.6; O2SAT 96
[2017-04-15] MEDS: FAMOTIDINE 20 MG TAB PO SCH (21:04)
[2017-04-15] MEDS: traZODone HCL 100 MG TAB PO SCH (21:04)
[2017-04-16] MEDS: ACETAMINOPHEN/HYDROcodone 325 MG/5 MG TAB PO PRN ×3 (01:13→15:18)
[2017-04-16] MEDS: ACETAMINOPHEN 325 MG TAB PO PRN ×2 (04:44→12:39)
[2017-04-16] MEDS: HEPARIN SODIUM - SQ 10,000 UNITS/ML VIAL SQ SCH ×2 (04:47→14:08)
[2017-04-16] MEDS: LEVOTHYROXINE SODIUM 25 MCG TAB PO SCH (04:48)
[2017-04-16] MEDS: NYSTATIN 100,000 U/GM PWD 15 GM BTL TOPICAL SCH ×2 (06:00→14:00)
[2017-04-16 06:13] VITALS: BP 136/66; PULSE 67; RESP 18; TEMP 97.5; O2SAT 95
[2017-04-16] MEDS: PETROLATUM 49%/ZINC OXIDE 15% 4 OUNCE TUBE TOPICAL SCH (09:00)
[2017-04-16] MEDS: LACTIC ACID (AMMONIUM LACTATE) 12% LOTION 225 GM BTL TOPICAL SCH (09:00)
[2017-04-16] MEDS: NAPROXEN 500 MG TAB PO SCH (09:00)
--- NOTE | 2017-04-16 09:01 | HHI.PR ---
Subjective Remarks No current complaints Has cellulitis of the lower extremity as well as chronic lymphedema bilaterally Discussed with patient and RN Has history of gastric bypass but has regained all the weight 04-15 SWITCHED TO DOXYCYCLINE AND BACTRIM BY ID COMPLAINING OF PAIN- STATES IT IS CHRONIC WILL ADJUST MEDICATION 04-16 Pain well controlled on new regimen No complaints at this time Afebrile, vital signs stable Objective Vital Signs Date Time Temp Pulse Resp B/P (MAP) Pulse Ox O2 Delivery O2 Flow Rate FiO2 04/16/17 06:13 97.5 67 18 136/66 (89) 95 04/15/17 18:23 97.6 73 19 154/77 (102) 96 I/O 04/15/17 04/15/17 04/15/17 04/16/17 04/16/17 04/16/17 07:00 15:00 23:00 07:00 15:00 23:00 Intake Total 120 ml 0 ml 720 ml 360 ml Balance 120 ml 0 ml 720 ml 360 ml Intake Oral 120 ml 0 ml 720 ml 360 ml # Voids 2 4 2 Result Diagram: 04/13/17 0925 Objective Remarks GENERAL: Obese male lying in bed SKIN: Warm and dry. BL lower extremity edema. RLE with erythema and blisters containing clear fluid. LLE dressed; dressing c/d/i HEAD: Atraumatic. Normocephalic. EYES: Pupils equal and round. No scleral icterus. No injection or drainage. Extraocular muscles intact ENT: No nasal bleeding or discharge. Mucous membranes pink and moist. Tongue midline NECK: Trachea midline. No JVD. Supple CARDIOVASCULAR: Regular rate and rhythm. S1-S2 no S3 or S4 RESPIRATORY: No accessory muscle use. Clear to auscultation. Breath sounds equal bilaterally. GASTROINTESTINAL: Abdomen soft, non-tender, nondistended. Hepatic and splenic margins not palpable. MUSCULOSKELETAL: Extremities without clubbing, cyanosis. No obvious deformities. Chronic bilateral edema and lymphedema NEUROLOGICAL: Awake and alert. No obvious cranial nerve deficits. Motor grossly within normal limits. Normal speech. PSYCHIATRIC: INAppropriate mood and affect; insight and judgment ABnormal. A/P Assessment and Plan 61-year-old male with history of morbid obesity, alcohol abuse, hypothyroidism, depression, chronic lower extremity edema, MU noncompliant with CPAP, gastric bypass, presents after a fall with weakness. Fall, Generalized Weakness, Inability to Care for Self: suspect multifactorial with chronic deconditioning, alcohol abuse, extensive BLE edema, morbid obesity. CXR images reviewed, no acute findings. -daily PT -patient found in urine/feces, extremely poor hygiene, likely needs placement -case management consulted, patient will be discharged to SNF Chronic Venous Stasis Dermatitis: Chronic leg swelling-- gradually improved Cellulitis LE- L>R- improving - MRSA SWITCHED TO DOXYCYCLINE AND BACTRIM BY ID control edema-low dose diuretic- Lasix 20 mg daily dressing care per wound care Hypertension- improved continue on Procardia 30 mg XL daily continue on diuretic Lasix 20 mg daily Morbid Obesity: Patient weighs 150kg, BMI 48.8. Patient is already s/p bariatric surgery with gastric bypass. -counseled on weight reduction -heart healthy diet Hypothyroidism: -TSH WNL -restart Synthroid 25 mcg po daily Alcohol Abuse: patient reports drinking 1 L of wine nightly -counseled on cessation -continue thiamine/folate/MVI -CIWA protocol with ativan prn -seizure precautions Chronic Pain: Continue Sheridan/Naproxen prn DVT Prophylaxis: Heparin SQ, CM working on placement - [facility] in [facility] likely will take him- 2- 3 days-- CM working on paperworks Discharge Planning Pending psychiatry recommendations and case management placement. Patient medically cleared for discharge Naz Pena MD Apr 16, 2017 09:01
[2017-04-16] MEDS: VENLAFAXINE HCL XR 75 MG CAP PO SCH (09:03)
[2017-04-16] MEDS: SULFAMETHOXAZOLE-TRIMETHOPRIM DS 800-160 MG TAB PO SCH (09:03)
[2017-04-16] MEDS: NIFEdipine 30 MG SUSTAINED RELEASE TAB PO SCH (09:03)
[2017-04-16] MEDS: DOCUSATE SODIUM 50 MG/SENNA 8.6 MG TAB PO SCH (09:03)
[2017-04-16] MEDS: DOXYCYCLINE HYCLATE 100 MG TAB PO SCH (09:03)
[2017-04-16] MEDS: THIAMINE HCL 100 MG TAB PO SCH (09:03)
[2017-04-16] MEDS: FUROSEMIDE 20 MG TAB PO SCH (09:03)
[2017-04-16] MEDS: FAMOTIDINE 20 MG TAB PO SCH (09:04)
[2017-04-16 09:32] LABS: AUTOMATED NEUTROPHIL # 3.9 TH/MM3 (1.8-7.7); BASOPHIL % 0.7 % (0.0-2.0); EOSINOPHIL # 0.2 TH/MM3 (0-0.4); EOSINOPHIL % 3.1 % (0.0-4.0); HEMATOCRIT 40.6 % (39.0-51.0); HEMO FLAGS DIFF FINAL; LYMPH % 15.4 % (9.0-44.0); LYMPHOCYTE # 0.9 TH/MM3 (1.0-4.8); MEAN CELL VOLUME 94.7 FL (80.0-100.0); MEAN CORPUSCULAR HEMOGLOBIN 31.8 PG (27.0-34.0); MEAN CORPUSCULAR HGB CONC 33.6 % (32.0-36.0); MONO % 10.2 % (0.0-8.0); NEUT % 70.6 % (16.0-70.0); PLATELET COUNT 234 TH/MM3 (150-450); RED BLOOD COUNT 4.29 MIL/MM3 (4.50-5.90); RED CELL DISTRIBUTION WIDTH 16.2 % (11.6-17.2); WHITE BLOOD COUNT 5.5 TH/MM3 (4.0-11.0)
[2017-04-16 10:05] VITALS: RESP 17
[2017-04-16 10:07] LABS: ANION GAP 8 MEQ/L (5-15); AST (GOT) 22 U/L (15-37); BLOOD UREA NITROGEN 8 MG/DL (7-18); CHLORIDE 105 MEQ/L (98-107); GLOMERULAR FILTRATION RATE 125 ML/MIN (>89); MAGNESIUM 1.7 MG/DL (1.5-2.5); SODIUM (NA) 140 MEQ/L (136-145)
[2017-04-16 10:10] LABS: POTASSIUM 2.9 MEQ/L (3.5-5.1)
[2017-04-16 10:12] LABS: ALKALINE PHOSPHATASE 87 U/L (45-117); ALT (GPT) 10 U/L (12-78); TOTAL BILIRUBIN ADULT 0.3 MG/DL (0.2-1.0)
[2017-04-16] MEDS ORDERED: POTASSIUM CHLORIDE 20 MEQ CONTROLLED RELEASE TAB PO ONE (10:45)
[2017-04-16] MEDS ORDERED: Lactic Acid 12% Lotion TOPICAL (12:13)
[2017-04-16] MEDS ORDERED: NORC5TAB PO (12:13)
[2017-04-16] MEDS ORDERED: THIA100 PO (12:13)
[2017-04-16] MEDS ORDERED: NIFE30TA8 PO (12:13)
[2017-04-16] MEDS ORDERED: Nystatin Powder TOPICAL (12:13)
[2017-04-16] MEDS ORDERED: PERI PO (12:13)
[2017-04-16] MEDS ORDERED: VENL225T PO (12:13)
[2017-04-16] MEDS ORDERED: TRAZ100T10 PO (12:13)
--- NOTE | 2017-04-16 12:16 | HHI.DS ---
Psychiatry Discharge Summary Inpatient Psychiatric care?: Yes Advance Directive: No Reason Not Provided: deferred Mental Health AdvanceDirective: No Health Care Proxy: No Admission Admission Date Apr 08, 2017 at 16:54 Admission Diagnosis: (1) Adjustment disorder with depressed mood ICD Code: F43.21 - Adjustment disorder with depressed mood Brief History The patient is a 61-year-old obese man, domiciled alone in [facility] , recently , supported by [facility], without no previous psychiatric history, no previous psychiatric hospitalizations, no previous suicidal attempts, medical history of morbid obesity, alcohol abuse, hypothyroidism, chronic lower extremity edema, MU noncompliant with CPAP, gastric bypass, presents after a fall with weakness. The patient reports he was previously at [facility] 2 months ago but is now living at home alone. He states this morning he fell down on his knees then "crumbled" down to the floor on his buttocks. He was unable to ambulate off the floor. He denies hitting his head or any loss of consciousness. Denies any lightheadedness, dizziness, chest pain, palpitations, or shortness of breath prior to the episode. He called his mom who lives next door and then called 911. He denies any specific injuries or pain. He states he normally can ambulate with a walker. He admits he has not been able take care of himself lately. He reports increasing lower extremity edema worse than his baseline. Denies any history of CHF or CAD. He does not take any diuretics or wear compression stockings. 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 He states he hasn't been taking any medications in 2 months since he's been discharged from the group home. He agrees he likely needs SNF placement. Consulted to psychiatry due to symptomatology of depression. Psychiatric evaluation patient is irritable, demanding, he stated that he doesn't trust the nurses here, he feels disrespected, he doesn't like the staff of the hospital in general. Patient reports symptoms of depression for the last 3 months. He says that he went to a very hard process of divorce, his life has been deteriorating, and he has been feeling progressively and increasingly depressed with the days. Patient reports sensation of hopelessness, helplessness, he is no enjoying his usual enjoyable activities, he feels worthless, he has an increased sensitivity to rejection and frustration, frequent mood swings, but the most important and frequent suicidal thoughts, but not specific plan. He says that he doesn't want to and he does want to kill himself. He says that he has a daughter that he love and he doesn't want that his legacy is a suicide, but he feels very overwhelmed and he doesn't know what to do. Patient is willing to accept treatment for depression inpatient if possible. He contracted for safety in the hospital. He denies visual and auditory hallucinations. He is fully oriented 3, no attention deficit, no fluctuation of consciousness, no gross cognitive impairment present. Reports almost daily use of alcohol, usually 1 or 2 cups of wine, but he denies the use of illegal drugs. 04/09/17 Patient is a 61-year-old man, recent divorce, unemployed on SSI, domiciled alone, with a past psychiatric history of alcohol use disorder, no prior psychiatric hospitalizations, no prior suicide attempts or self-injurious behavior with a past medical history of morbid obesity, hypothyroidism, chronic lower extremity edema, MU, gastric bypass, who was admitted to the medical unit for recent fall and generalized weakness which psychiatry was consulted for evaluation of depression and was recommended the patient be transferred to the inpatient psychiatry unit for further evaluation and management for the same. Patient was found sitting in hospital bed working with physical therapy and was able to walk self to the wheelchair and was calm and cooperative with nurse medical writer and therapist. Patient states that he has been having difficulty with depression and recent feelings of helplessness increasing depression and thoughts of not wanting to be alive. Patient reports that he has been recently and had been having difficult time coping with his divorce as well as feeling lonely. Patient also mentions having been at a intermediate facility for 2 months and was subsequently discharged back home which she had been having difficulty managing without assistance. Patient states that he really needs to be an established pressure facility such as the when he left but was unsure whether he will be welcome back as he mentioned has had recent arguments with personnel there. Patient states that he would like to be apologetic with them if they were accepting him back. Patient states for the past couple of weeks he had been having decreased sleep, energy and concentration along with worsening depressive mood, feeling helpless but denies feeling hopeless. Patient denies any active thoughts of wine to end his life but does report having thoughts of not wanting to be alive stating feeling "what 's the use". Patient reports having daily alcohol use for the past year stated that he was using alcohol to cope with this current depression. Patient states "when things stop mattering the world is just a big blur". Patient at this time reports feeling sad, depressed, out of control, numb, continues with suicidal ideation, denies HI, AVH or delusions at this time. Past psychiatric history: Denies any previous psychiatric diagnoses, alcohol use disorder, denies previous psychiatric hospitalizations, suicide attempts or self-injurious behavior. Patient denies any history of abuse. Patient reports having been on antidepressant in the past but was unable to recall the name. Patient reports having seen a therapist at this recent SNF wasn't twice a week but feels he was not receiving useful therapy from it. Substance use history: Alcohol use daily about 1 L of alcohol for the past 1-2 months, remote marijuana use, denies use of any other substance. Denies previous detox or rehabilitation programs. Past medical history: morbid obesity, hypothyroidism, chronic lower extremity edema, MU, gastric bypass Allergies: NKDA Social history: Recently , domiciled alone, unemployed on [employer], recently left a intermediate facility with a duration of 2 months but had left back home 1-2 months ago. Patient was born and raised in [place], currently living in the [place]. Highest education is college. Tobacco Use In Past 30 Days: No Tobacco Past 30 Days Alcohol Use: 4 or More Times Per Week Hospital Course Patient is a 61-year-old man, recent divorce, unemployed on [facility], domiciled alone, with a past psychiatric history of alcohol use disorder, no prior psychiatric hospitalizations, no prior suicide attempts or self-injurious behavior with a past medical history of morbid obesity, hypothyroidism, chronic lower extremity edema, MU, gastric bypass, who was admitted to the medical unit for recent fall and generalized weakness which psychiatry was consulted for evaluation of depression and was recommended the patient be transferred to the inpatient psychiatry unit for further evaluation and management for the same. Patient was started on venlafaxine 75mg PO daily and titrated up to 225mg PO daily for depression, trazodone 200mg PO for insomnia. Patient was continuously followed by the medical team for chronic medical illnesses during admission. Patient was noted to be with improved mood, participatory in groups and activities was limited due to being on contact precautions due to MRSA infection which was treated via IV antibiotics. He continued with physical therapy and occupational therapy while on the unit. He reported wanting to go home initially but was amenable to going to a intermediate facility to continue recovery. Upon discharge, patient continued to reported feeling depressed but had improved since admission and did not endorse suicidal ideations consistently for several days. He denied any SI, HI, AVH or delusions. He agrees to engage in rehabiliation treatment at intermediate facility and continue outpatient follow up for continuity of care. Supportive psychotherapy provided. Patient advised to call 911 or go nearest ED in case of emergency. Patient agrees with plan. Results Blood Pressure 136 / 66 Vital Signs Date Time Temp Pulse Resp B/P (MAP) Pulse Ox O2 Delivery O2 Flow Rate FiO2 04/16/17 10:05 17 04/16/17 06:13 97.5 67 136/66 (89) 95 Laboratory Tests Test 04/16/17 08:49 Red Blood Count 4.29 MIL/MM3 (4.50-5.90) Neutrophils (%) (Auto) 70.6 % (16.0-70.0) Monocytes (%) (Auto) 10.2 % (0.0-8.0) Lymphocytes # (Auto) 0.9 TH/MM3 (1.0-4.8) Random Glucose 68 MG/DL (74-106) Total Protein 5.9 GM/DL (6.4-8.2) Albumin 2.2 GM/DL (3.4-5.0) Calcium Level 8.0 MG/DL (8.5-10.1) Alanine Aminotransferase (ALT/SGPT) 10 U/L (12-78) Potassium Level 2.9 MEQ/L (3.5-5.1) Laboratory Results Test 04/09/17 04:08 Cholesterol Level 118 MG/DL (120-200) HDL Cholesterol 43.3 MG/DL (40.0-60.0) Hemoglobin A1c 5.8 % (4.3-6.0) LDL Cholesterol 61 MG/DL (0-99) Triglycerides Level 68 MG/DL (42-150) Summary of Procedures None Imaging Last Impressions Lower Extremity Ultrasound 04/08/17 0000 Signed Impressions: Service Date/Time: March 12:47 - CONCLUSION: The study is negative for deep venous thrombosis bilateral lower extremity. Hans Etienne MD Ankle X-Ray 04/08/17 0000 Signed Impressions: Service Date/Time: March 08:03 - CONCLUSION: 1. Prominent soft tissue swelling and diffuse soft tissue calcifications. 2. The osseous structures are intact. Hans Etienne MD Chest X-Ray 04/07/17 1117 Signed Impressions: Service Date/Time: Friday, April 07, 2017 11:38 - CONCLUSION: Normal examination. Kenrick Eaton MD Pending results at discharge: No Medications # of Antipsychotic meds at D/C: 0 Approp Antipsych med options 1 - Minimum of three failed multiple trials of monotherapy. 2 - Documented plan to taper to monotherapy due to previous use of multiple meds OR cross-taper in progress at D/C. 3 - Documentation of augmentation of Clozapine. 4 - Justification other than those listed in allowable values 1-3, document here : Discharge Discharge Date: Apr 17, 2017 Discharge Diagnosis: (1) Adjustment disorder with depressed mood ICD Code: F43.21 - Adjustment disorder with depressed mood Pt Condition on Discharge: Stable Discharge Disposition: Discharge to SNF Discharge Instructions Diet Instructions: Heart Healthy Diet Activities you can perform: Weight Bearing as Abdiel Scheduled Appointment: [facility] Discharge Time > 30 minutes Mental Status Examination Appearance: Appropriate Consciousness: Alert Orientation: x4 Motor Activity: Normal gait Speech: Unremarkable Language: Adequate Fund of Knowledge: Adequate Attention and Concentration: Adequate Memory: Unremarkable Mood: Other (better) Affect: Appropriate Thought Process & Associations: Intact, Goal directed, Linear Thought Content: Appropriate Hallucination Type: None Delusion Type: None Suicidal Ideation: No Suicidal Plan: No Suicidal Intention: No Homicidal Ideation: No Homicidal Plan: No Homicidal Intention: No Insight: Fair Judgment: Adequate Discharge/Advance Care Plan Health Problems: (1) Adjustment disorder with depressed mood Goals to promote your health * To prevent worsening of your condition and complications * To maintain your health at the optimal level Directions to meet your goals Take your medications as prescribed Follow your dietary instruction Follow activity as directed Keep your appointments as scheduled Take your immunizations and boosters as scheduled If your symptoms worsen call your PCP, if no PCP go to Urgent Care Center or Emergency Room For 24/7 questions related to your inpatient stay or results of tests pending at discharge, please contact Dr. Tc Higuera at Smoking is Dangerous to Your Health. Avoid second hand smoking Tc Higuera MD Apr 16, 2017 12:16
[2017-04-16] MEDS ORDERED: DOXY100T PO (12:46)
[2017-04-16] MEDS ORDERED: SULF1TAB23 PO (12:46)
[2017-04-16] MEDS ORDERED: FURO20TA PO (12:46)
[2017-04-16] MEDS ORDERED: POTA20TA5 PO (12:48)
== END 2017-04-16 15:15 | DRG 881 ==
LOC: NEPE 10:52 → NEDA 14:24 → NEDH 14:35 → NEDA 14:36 → NEPFCDU 16:32 → H4EA 04-08 15:30 → OBSVTOIN 04-08 16:54
PROVIDERS: ADMIT Student in an Organized Health Care Education/Training Program; ATTEND Student in an Organized Health Care Education/Training Program
DX: F43.21 Adjustment disorder with depressed mood (principal); L03.115 Cellulitis of right lower limb; Z68.42 Body mass index [BMI] 45.0-49.9, adult; L03.116 Cellulitis of left lower limb; R45.851 Suicidal ideations; L97.329 Non-pressure chronic ulcer of left ankle with unspecified severity; I10 Essential (primary) hypertension; B35.6 Tinea cruris; F10.10 Alcohol abuse, uncomplicated; E03.9 Hypothyroidism, unspecified; F41.9 Anxiety disorder, unspecified; K21.9 Gastro-esophageal reflux disease without esophagitis; E66.01 Morbid (severe) obesity due to excess calories; G47.33 Obstructive sleep apnea (adult) (pediatric); R60.0 Localized edema; I87.2 Venous insufficiency (chronic) (peripheral); I87.8 Other specified disorders of veins; R53.1 Weakness; I89.0 Lymphedema, not elsewhere classified; M19.90 Unspecified osteoarthritis, unspecified site; B95.62 Methicillin resistant Staphylococcus aureus infection as the cause of diseases classified elsewhere; B96.89 Other specified bacterial agents as the cause of diseases classified elsewhere; Z87.891 Personal history of nicotine dependence; Z91.19 Patient's noncompliance with other medical treatment and regimen; Z98.84 Bariatric surgery status
CPT/HCPCS: 71010; 73610; 80048; 80053; 80061; 80202; 81001; 82550; 82565; 82948; 83036; 83605; 83690; 83735; 84100; 84155; 84439; 84443; 84484; 85025; 85610; 85652; 85730; 86140; 86403; 87040; 87070; 87077; 87086; 87147; 87186; 87205; 93005; 93306; 93922; 93970; G8987-GO; G8987-GP; G8988-GO; G8988-GP; J1644; J2060; J2543; J3370; J7030; J7040; J7050

== ENCOUNTER 2017-05-07 12:36 | Emergency (ER) | payer MEDICARE, MEDICAID, OTHER ==
[~2017-05-07] VITALS: Ht 172.7 cm; Wt 140.0 kg
[~2017-05-07 12:36] MED LIST changes: -BUPR-197 PO; -CYAN1000P SC; +DOXY100T PO; -DUONI NEB; +FURO20TA PO; -KCL20 PO; -LEVO.025 PO; -LORA-474 PO; -LORTA5 PO; +Lactic Acid 12% Lotion TOPICAL; -NIFE1TAB85 PO; +NIFE30TA8 PO; +NORC5TAB PO; +Nystatin Powder TOPICAL; +PERI PO; +POTA20TA5 PO; -PROT40TA PO; +SULF1TAB23 PO; +SYNT25TA PO; +THIA100 PO; +TRAZ100T10 PO; +VENL225T PO
[2017-05-07 12:49] VITALS: BP 133/87; PULSE 112; RESP 20; TEMP 98.8; O2SAT 97
--- NOTE | 2017-05-07 13:11 | PD ---
HPI Chief Complaint: Psychiatric Symptoms Time Seen by Provider: 12:54 Travel History International Travel<30 days: No Contact w/Intl Traveler<30days: No Traveled to known affect area: No History of Present Illness HPI 61-year-old male complains of depression and wanted to . Patient has history of depression and has not been taking his medications. Patient was Pimentel acted and brought in by law enforcement for evaluation. Patient denies any medical complaint. Patient has history of chronic edema lower extremity with venous stasis dermatitis. PFSH Past Medical History Arthritis: Yes Asthma: Yes Blood Disorders: No Anxiety: Yes Depression: Yes Heart Rhythm Problems: No Cancer: No Cardiovascular Problems: No High Cholesterol: Yes Chemotherapy: No Chest Pain: No Congestive Heart Failure: No COPD: Yes Cerebrovascular Accident: No Diabetes: No Diminished Hearing: No Endocrine: Yes Gastrointestinal Disorders: Yes GERD: No Genitourinary: No Hiatal Hernia: No Hypertension: Yes Immune Disorder: No Implanted Vascular Access Dvce: Yes Kidney Stones: No Musculoskeletal: Yes Neurologic: No Psychiatric: Yes (depression) Reproductive: No Respiratory: Yes Migraines: No Radiation Therapy: No Renal Failure: No Seizures: No Sickle Cell Disease: No Sleep Apnea: Yes (cpap) Thyroid Disease: Yes Ulcer: No Past Surgical History Abdominal Surgery: No AICD: No Arteriovenous Shunt: No Body Medical Devices: LEFT FEMUR HIP NAIL Cardiac Surgery: No Ear Surgery: No Endocrine Surgery: No Eye Surgery: No Genitourinary Surgery: No Insulin Pump: No Joint Replacement: No Oral Surgery: No Pacemaker: Yes Thoracic Surgery: No Other Surgery: Yes Social History Alcohol Use: Yes (OCC) Tobacco Use: No (QUIT 20 YEARS AGO) Substance Use: No (as a youth smoked marijuana) Allergies-Medications (Allergen,Severity, Reaction): Coded Allergies: No Known Allergies (Verified Allergy, Unknown, 04/07/17) Reported Meds & Prescriptions Reported Meds & Active Scripts Active Potassium Chloride Microencaps 20 Meq Tab 40 Meq PO ONCE 30 Days Furosemide 20 Mg Tab 20 Mg PO DAILY 30 Days Doxycycline Hyclate 100 Mg Tab 100 Mg PO Q12HR 14 Days Sulfamethoxazole-Trimethoprim 800-160 Mg Tab 1 Tab PO Q12HR 14 Days Gnp Vitamin B-1 (Thiamine HCl) 100 Mg Tab 100 Mg PO DAILY 30 Days [Lactic Acid 12% Lotion] 225 APPLIC/225 GM Lotn 1 Applic TOPICAL BID 30 Days [Nystatin Powder] 15 APPLIC/15 GM Powd 1 Applic TOPICAL Q8HR 30 Days Gnp Senna Plus 8.6-50 mg (Sennosides-Docusate Sodium) 8.6 Mg-50 Mg Tab 1 Tab PO BID 30 Days Venlafaxine ER 24 HR (Venlafaxine HCl) 225 Mg Tab 225 Mg PO DAILY Nifedipine ER 24 HR (Nifedipine) 30 Mg Tab 30 Mg PO DAILY 30 Days Trazodone (Trazodone HCl) 100 Mg Tablet 200 Mg PO HS Kersey (Hydrocodone-Acetaminophen) 5 Mg-325 Mg Tab 1 Tab PO Q6H PRN 7 Days Reported Synthroid (Levothyroxine Sodium) 25 Mcg Tab 25 Mcg PO DAILY Review of Systems General / Constitutional: No: Fever Eyes: No: Visual changes HENT: No: Headaches Cardiovascular: No: Chest Pain or Discomfort Respiratory: No: Shortness of Breath Gastrointestinal: No: Abdominal Pain Genitourinary: No: Dysuria Musculoskeletal: No: Pain Skin: No Rash Neurologic: No: Weakness Psychiatric: No: Depression Endocrine: No: Polydipsia Hematologic/Lymphatic: No: Easy Bruising Physical Exam Narrative GENERAL: Well-nourished, well-developed patient. SKIN: Focused skin assessment warm/dry. HEAD: Normocephalic. EYES: No scleral icterus. No injection or drainage. NECK: Supple, trachea midline. No JVD or lymphadenopathy. CARDIOVASCULAR: Regular rate and rhythm without murmurs, gallops, or rubs. RESPIRATORY: Breath sounds equal bilaterally. No accessory muscle use. GASTROINTESTINAL: Abdomen soft, non-tender, nondistended. MUSCULOSKELETAL: Patient has brownish discoloration of the lower extremity. BACK: Nontender without obvious deformity. No CVA tenderness. Data Data Last Documented VS Vital Signs Date Time Temp Pulse Resp B/P (MAP) Pulse Ox O2 Delivery O2 Flow Rate FiO2 05/07/17 12:49 98.8 112 20 133/87 (102) 97 Orders Orders Complete Blood Count With Diff (05/07/17 13:00) Comprehensive Metabolic Panel (05/07/17 13:00) Psych Screen (05/07/17 13:00) Drug Screen, Random Urine (05/07/17 13:00) MDM Medical Decision Making Medical Screen Exam Complete: Yes Emergency Medical Condition: Yes Medical Record Reviewed: Yes Differential Diagnosis Differential diagnosis including depression, suicidal, adjustment disorder. Narrative Course 61-year-old male was Pimentel acted for suicidal ideation and depression. Giovanni Long MD May 07, 2017 13:11
[2017-05-07 13:53] LABS: AUTOMATED NEUTROPHIL # 5.1 TH/MM3 (1.8-7.7); BASOPHIL % 0.5 % (0.0-2.0); EOSINOPHIL # 0.1 TH/MM3 (0-0.4); EOSINOPHIL % 0.8 % (0.0-4.0); HEMATOCRIT 48.3 % (39.0-51.0); HEMOGLOBIN 15.9 GM/DL (13.0-17.0); LYMPH % 19.2 % (9.0-44.0); LYMPHOCYTE # 1.4 TH/MM3 (1.0-4.8); MEAN CELL VOLUME 95.1 FL (80.0-100.0); MEAN CORPUSCULAR HEMOGLOBIN 31.2 PG (27.0-34.0); MEAN CORPUSCULAR HGB CONC 32.8 % (32.0-36.0); MEAN PLATELET VOLUME 7.8 FL (7.0-11.0); MONO % 9.6 % (0.0-8.0); MONOCYTE # 0.7 TH/MM3 (0-0.9); NEUT % 69.9 % (16.0-70.0); PLATELET COUNT 190 TH/MM3 (150-450); RED BLOOD COUNT 5.09 MIL/MM3 (4.50-5.90); RED CELL DISTRIBUTION WIDTH 15.5 % (11.6-17.2); WHITE BLOOD COUNT 7.2 TH/MM3 (4.0-11.0)
[2017-05-07 14:12] LABS: ALBUMIN 2.9 GM/DL (3.4-5.0); ALT (GPT) 22 U/L (12-78); AST (GOT) 23 U/L (15-37); BICARBONATE 17.9 MEQ/L (21.0-32.0); BLOOD UREA NITROGEN 9 MG/DL (7-18); CALCIUM 8.2 MG/DL (8.5-10.1); CHLORIDE 109 MEQ/L (98-107); CREATININE 0.78 MG/DL (0.60-1.30); GLOMERULAR FILTRATION RATE 102 ML/MIN (>89); GLUCOSE,RANDOM 105 MG/DL (74-106); SODIUM (NA) 140 MEQ/L (136-145)
[2017-05-07 14:14] LABS: ALKALINE PHOSPHATASE 109 U/L (45-117); TOTAL BILIRUBIN ADULT 0.4 MG/DL (0.2-1.0)
[2017-05-07 16:02] VITALS: BP 134/83; PULSE 104; RESP 16; O2SAT 96
[2017-05-07 18:25] VITALS: BP 148/90; PULSE 120; RESP 20; TEMP 97.5; O2SAT 98
[2017-05-07 22:02] VITALS: BP 136/72; PULSE 98; RESP 18
[2017-05-07] MEDS ORDERED: ACETAMINOPHEN 325 MG TAB PO ONE (23:30)
[2017-05-08 02:00] VITALS: BP 132/59; PULSE 80; RESP 17; TEMP 96.1; O2SAT 97
[2017-05-08 06:33] VITALS: BP 175/99; PULSE 99; RESP 17; TEMP 98; O2SAT 96
--- NOTE | 2017-05-08 10:22 | PD ---
Data Data Last Documented VS Vital Signs Date Time Temp Pulse Resp B/P (MAP) Pulse Ox O2 Delivery O2 Flow Rate FiO2 05/08/17 13:54 05/08/17 06:33 98.0 99 17 96 Room Air Orders Orders Complete Blood Count With Diff (05/07/17 13:00) Comprehensive Metabolic Panel (05/07/17 13:00) Psych Screen (05/07/17 13:00) Drug Screen, Random Urine (05/07/17 13:00) Hydroxyzine Pamoate (Vistaril) (05/07/17 23:30) Acetaminophen (Tylenol) (05/07/17 23:30) Diet Regular Basic (05/08/17 Breakfast) Ed Discharge Order (05/08/17 11:02) Labs Laboratory Tests Test 05/07/17 13:37 05/07/17 17:45 White Blood Count 7.2 TH/MM3 Red Blood Count 5.09 MIL/MM3 Hemoglobin 15.9 GM/DL Hematocrit 48.3 % Mean Corpuscular Volume 95.1 FL Mean Corpuscular Hemoglobin 31.2 PG Mean Corpuscular Hemoglobin Concent 32.8 % Red Cell Distribution Width 15.5 % Platelet Count 190 TH/MM3 Mean Platelet Volume 7.8 FL Neutrophils (%) (Auto) 69.9 % Lymphocytes (%) (Auto) 19.2 % Monocytes (%) (Auto) 9.6 % Eosinophils (%) (Auto) 0.8 % Basophils (%) (Auto) 0.5 % Neutrophils # (Auto) 5.1 TH/MM3 Lymphocytes # (Auto) 1.4 TH/MM3 Monocytes # (Auto) 0.7 TH/MM3 Eosinophils # (Auto) 0.1 TH/MM3 Basophils # (Auto) 0.0 TH/MM3 CBC Comment DIFF FINAL Differential Comment Blood Urea Nitrogen 9 MG/DL Creatinine 0.78 MG/DL Random Glucose 105 MG/DL Total Protein 7.0 GM/DL Albumin 2.9 GM/DL Calcium Level 8.2 MG/DL Alkaline Phosphatase 109 U/L Aspartate Amino Transf (AST/SGOT) 23 U/L Alanine Aminotransferase (ALT/SGPT) 22 U/L Total Bilirubin 0.4 MG/DL Sodium Level 140 MEQ/L Potassium Level 4.8 MEQ/L Chloride Level 109 MEQ/L Carbon Dioxide Level 17.9 MEQ/L Anion Gap 13 MEQ/L Estimat Glomerular Filtration Rate 102 ML/MIN Urine Opiates Screen NEG Urine Barbiturates Screen NEG Urine Amphetamines Screen NEG Urine Benzodiazepines Screen NEG Urine Cocaine Screen NEG Urine Cannabinoids Screen NEG MDM Supervised Visit with XIOMARA: No Narrative Course Patient is a 61-year-old male here on Loren act for suicidal statements. I was asked by nursing to evaluate the patient after a possible fall. Arrived at the bedside the patient states he rolled out of bed to get the attentions of nursing because he's board. The patient states he wants to watching television. He denies any physical complaints at this time. He states he came here because he was depressed and wanted evaluation for his depression and he does not understand why he was Loren acted. GENERAL: Well-developed, morbidly obese in no obvious distress. Lying down in bed comfortable. SKIN: Focused skin assessment warm/dry. Turgor ecchymosis over the long and ring fingers on the left hand,. Be old. No swelling. There is also a small abrasion which is healing on the abdomen. HEAD: Atraumatic. Normocephalic. EYES: Pupils equal and round. No scleral icterus. No injection or drainage. ENT: No nasal bleeding or discharge. Mucous membranes pink and moist. NECK: Trachea midline. No JVD. CARDIOVASCULAR: Regular rate and rhythm. No murmur appreciated. RESPIRATORY: No accessory muscle use. Clear to auscultation. Breath sounds equal bilaterally. GASTROINTESTINAL: Abdomen soft, non-tender, nondistended. Hepatic and splenic margins not palpable. MUSCULOSKELETAL: No obvious deformities. No clubbing. No cyanosis. No edema. No midline CT or L-spine tenderness, no gross deformity in the extremities, full nontender range of motion of all joints of the upper and lower extremities. NEUROLOGICAL: Awake and alert. No obvious cranial nerve deficits. Motor grossly within normal limits. Normal speech. PSYCHIATRIC: Appropriate mood and affect; insight and judgment normal. The patient has apparently suffered no injury as a result of his rolling out of bed. No imaging studies indicated this time, his head is cleared by [place] CT head rolls and his neck is cleared by Nexus criteria. Awaiting for psychiatric evaluation. ER staff will continue to available to this patient should he require us. Shortly after my examination the patient he was seen by psychiatrist Loren huber. No medical complaint wants further workup is stable for discharge. Diagnosis Primary Impression: Adjustment disorder with depressed mood Disposition: 01 DISCHARGE HOME Condition: Stable Alban Ramírez MD May 08, 2017 10:22
--- NOTE | 2017-05-08 10:53 | PD.PSY.CON ---
Provisional Diagnosis Admission Date [place] I. Adjustment disorder with depressed mood f 43.21 History of Present Illness Service Psychiatry Consult Requested By EDMD Reason for Consult Loren joel Primary Care Physician No Primary Care Physician DARLENE Patient is a 61-year-old white male who initially comes here under Pimentel act by the [facility] Sheriff's office dated 05/07/17 11:24 AM the document reviewed and agreed with. Essentially states Markos is having issues with depression and not taking his medication he made statements that he wanted to and wishes he was no longer a burn on people he is also upset over his ' s leaving him. Patient seen screen in the ED urine toxicology negative. At the present time patient sitting quietly in his room and J pod nurse Mikal present throughout session. Patient states he is been depressed since his of 30+ years left him a few months ago. Is going through a divorce. He is now living by himself in the family home. His mother lives close by who is assisting him. He also has not adult daughter who lives in [facility] who with cysts. He states is on disability due to versus medical issues. Patient denies suicidality homicidality voices or visions. He denies any alcohol or drug use with this. He said he was just upset with the process of the divorce. He now feels safe is able to contract to do no harm. He wishes to return home. He denies any prior psychiatric contact hospitalization his psychotropic medications. He does have some insight into his need for further treatment. I would recommend that he start with counseling. In any event at the present time patient does not meet Loren criteria will lift Loren act as okay by psychiatry for patient to be discharged. No Rx by me. Referral counseling of the community perhaps [facility] or [facility] or [facility] Review of Systems Constitutional: DENIES: Diaphoretic episodes, Fatigue, Fever, Weight gain, Weight loss, Chills, Dizziness, Change in appetite, Night Sweats Endocrine: DENIES: Heat/cold intolerance, Polydipsia, Polyuria, Polyphagia Eyes: DENIES: Blurred vision, Diplopia, Eye inflammation, Eye pain, Vision loss , Photosensitivity, Double Vision Ears, nose, mouth, throat: DENIES: Tinnitus, Hearing loss, Vertigo, Nasal discharge, Oral lesions, Throat pain, Hoarseness, Ear Pain, Running Nose, Epistaxis, Sinus Pain, Toothache, Odynophagia Respiratory: DENIES: Apneas, Cough, Snoring, Wheezing, Hemoptysis, Sputum production, Shortness of breath Cardiovascular: DENIES: Chest pain, Palpitations, Syncope, Dyspnea on Exertion , PND, Lower Extremity Edema, Orthopnea, Claudication Gastrointestinal: DENIES: Abdominal pain, Black stools, Bloody stools, Constipation, Diarrhea, Nausea, Vomiting, Difficulty Swallowing, Anorexia Genitourinary: DENIES: Sexual dysfunction, Urinary frequency, Urinary incontinence, Urgency, Hematuria, Dysuria, Nocturia, Penile Discharge, Testicular Pain, Testicular Swelling Musculoskeletal: DENIES: Joint pain, Muscle aches, Stiffness, Joint Swelling, Back pain, Neck pain Integumentary: DENIES: Abnormal pigmentation, Nail changes, Pruritus, Rash Immunologic/allergic: DENIES: Eczema, Urticaria Neurologic: DENIES: Abnormal gait, Headache, Localized weakness, Paresthesias, Seizures, Speech Problems, Tremor, Poor Balance Psychiatric: COMPLAINS OF: Anxiety, Depression (mild), Suicidal Ideation ( denies) Past Family Social History Coded Allergies: No Known Allergies (Verified Allergy, Unknown, 04/07/17) Active Scripts Potassium Chloride Microencaps (Potassium Chloride Microencaps) 20 Meq Tab, 40 MEQ PO ONCE for health for 30 Days, #30 TAB Prov:Tc Higuera MD 04/16/17 Furosemide (Furosemide) 20 Mg Tab, 20 MG PO DAILY for health for 30 Days, #30 TAB Prov:Tc Higuera MD 04/16/17 Doxycycline Hyclate (Doxycycline Hyclate) 100 Mg Tab, 100 MG PO Q12HR for health for 14 Days, #28 TAB Prov:Tc Higuera MD 04/16/17 Sulfamethoxazole-Trimethoprim (Sulfamethoxazole-Trimethoprim) 800-160 Mg Tab, 1 TAB PO Q12HR for health for 14 Days, #28 TAB Prov:Tc Higuera MD 04/16/17 Thiamine HCl (Gnp Vitamin B-1) 100 Mg Tab, 100 MG PO DAILY for health for 30 Days, #30 TAB Prov:Tc Higuera MD 04/16/17 [Lactic Acid 12% Lotion] 225 APPLIC/225 GM LOTN No Conflict Check, 1 APPLIC TOPICAL BID for health for 30 Days, #1 TUBE Prov:Tc Higuera MD 04/16/17 [Nystatin Powder] 15 APPLIC/15 GM POWD No Conflict Check, 1 APPLIC TOPICAL Q8HR for health for 30 Days, #1 BOTTLE Prov:Tc Higuera MD 04/16/17 Sennosides-Docusate Sodium (Gnp Senna Plus 8.6-50 mg) 8.6 Mg-50 Mg Tab, 1 TAB PO BID for health for 30 Days, #60 TAB Prov:Tc Higuera MD 04/16/17 Venlafaxine ER 24 HR (Venlafaxine ER 24 HR) 225 Mg Tab, 225 MG PO DAILY for health, #30 TAB 0 Refills Prov:Tc Higuera MD 04/16/17 Nifedipine ER 24 HR (Nifedipine ER 24 HR) 30 Mg Tab, 30 MG PO DAILY for health for 30 Days, #30 TAB Prov:Tc Higuera MD 04/16/17 Trazodone (Trazodone) 100 Mg Tablet, 200 MG PO HS for Control Depression, #30 TAB 0 Refills Prov:Tc Higuera MD 04/16/17 Hydrocodone-Acetaminophen ([place]) 5 Mg-325 Mg Tab, 1 TAB PO Q6H Y for PAIN for 7 Days, #28 TAB 0 Refills Prov:Tc Higuera MD 04/16/17 Reported Medications Levothyroxine (Synthroid) 25 Mcg Tab, 25 MCG PO DAILY for Thyroid, #30 TAB 0 Refills 04/07/17 Family Psych History Patient denies mental health issues. Social History Patient going through divorce Patient's Strengths (min. 2) Patient will [facility] calm cooperative Physical Exam Patient medically cleared ED Vital Signs Vital Signs Date Time Temp Pulse Resp B/P (MAP) Pulse Ox O2 Delivery O2 Flow Rate FiO2 05/08/17 06:33 98.0 99 17 175/99 (124) 96 Room Air Lab Results Test 05/07/17 13:37 05/07/17 17:45 White Blood Count 7.2 TH/MM3 Red Blood Count 5.09 MIL/MM3 Hemoglobin 15.9 GM/DL Hematocrit 48.3 % Mean Corpuscular Volume 95.1 FL Mean Corpuscular Hemoglobin 31.2 PG Mean Corpuscular Hemoglobin Concent 32.8 % Red Cell Distribution Width 15.5 % Platelet Count 190 TH/MM3 Mean Platelet Volume 7.8 FL Neutrophils (%) (Auto) 69.9 % Lymphocytes (%) (Auto) 19.2 % Monocytes (%) (Auto) 9.6 % Eosinophils (%) (Auto) 0.8 % Basophils (%) (Auto) 0.5 % Neutrophils # (Auto) 5.1 TH/MM3 Lymphocytes # (Auto) 1.4 TH/MM3 Monocytes # (Auto) 0.7 TH/MM3 Eosinophils # (Auto) 0.1 TH/MM3 Basophils # (Auto) 0.0 TH/MM3 CBC Comment DIFF FINAL Differential Comment Blood Urea Nitrogen 9 MG/DL Creatinine 0.78 MG/DL Random Glucose 105 MG/DL Total Protein 7.0 GM/DL Albumin 2.9 GM/DL Calcium Level 8.2 MG/DL Alkaline Phosphatase 109 U/L Aspartate Amino Transf (AST/SGOT) 23 U/L Alanine Aminotransferase (ALT/SGPT) 22 U/L Total Bilirubin 0.4 MG/DL Sodium Level 140 MEQ/L Potassium Level 4.8 MEQ/L Chloride Level 109 MEQ/L Carbon Dioxide Level 17.9 MEQ/L Anion Gap 13 MEQ/L Estimat Glomerular Filtration Rate 102 ML/MIN Urine Opiates Screen NEG Urine Barbiturates Screen NEG Urine Amphetamines Screen NEG Urine Benzodiazepines Screen NEG Urine Cocaine Screen NEG Urine Cannabinoids Screen NEG Mental Status Examination Appearance: Disheveled Consciousness: Alert Orientation: x4 Motor Activity: Normal gait, Abnormal gait Language: Adequate Fund of Knowledge: Adequate Attention and Concentration: Adequate Memory: Unremarkable Mood: Other (euthymic to mildly dysphoric) Affect: Other (slight decreased range in intensity) Thought Process & Associations: Intact Thought Content: Appropriate Hallucination Type: None Delusion Type: None Suicidal Ideation: No Suicidal Plan: No Suicidal Intention: No Homicidal Ideation: No Homicidal Plan: No Homicidal Intention: No Insight: Adequate Judgment: Adequate Assessment & Plan Problem List: (1) Adjustment disorder with depressed mood ICD Codes: F43.21 - Adjustment disorder with depressed mood Assessment & Plan Estimated LOS: days patient does not meet Pimentel criteria will lift Pimentel act. Is okay by psych for discharge when medically clear and stable. No Rx by me. Strong recommendation counseling the community perhaps [facility] or [facility] or [facility] Request HC Surrog/Guard Advoc?: No Kenrick Bennett MD May 08, 2017 10:53
== END 2017-05-08 13:56 | disposition home or self-care (01) ==
LOC: NEPD 12:36 → NEPJ 05-08 13:56
DX: F43.21 Adjustment disorder with depressed mood (principal); I10 Essential (primary) hypertension; Z79.899 Other long term (current) drug therapy; Z87.891 Personal history of nicotine dependence
CPT/HCPCS: 80053; 80307; 85025; 99283

== ENCOUNTER 2017-05-24 12:55 | Emergency (ER) | payer MEDICARE, MEDICAID ==
[~2017-05-24] VITALS: Ht 172.7 cm; Wt 145.0 kg
[2017-05-24 13:45] VITALS: BP 117/77; PULSE 116; RESP 16; TEMP 97.9; O2SAT 95
[2017-05-24] MEDS ORDERED: ONDANSETRON HCL 4 MG/2 ML VIAL IV PUSH ONE (14:30)
[2017-05-24] MEDS ORDERED: SODIUM CHLORIDE 0.9% FLUSH 10 ML FLUSH IVF PRN (14:30)
--- NOTE | 2017-05-24 14:36 | PD ---
HPI Chief Complaint: General Weakness Time Seen by Provider: 14:18 Travel History International Travel<30 days: No Contact w/Intl Traveler<30days: No Traveled to known affect area: No History of Present Illness HPI 61 year old male presents to the emergency department for evaluation of generalized weakness that has been ongoing since he was discharged from [facility] to a nursing facility in January 2017. Patient states that he has fallen, but cannot remember the last time he fell or any details surrounding this. He denies any syncope. The patient states that he is sad and depressed and "all my problems are in my head". When asked why he came in today if his problem has been ongoing for so long, he states that he was told by his rn social services that if he was admitted to the hospital, he could be placed in a facility. The patient states that he has not seen a primary care physician since being discharged from [facility]. When asked if he has any chest pain or shortness of breath, he states "if I say yes, will I be admitted". He then denies any chest pain or shortness breath. No fevers. No headaches. No abdominal pain. He does report nausea. No diarrhea or constipation. Moderate severity. No exacerbating or alleviating factors. Patient reports feeling sad or depressed, but denies any suicidal ideation. When asked if the patient wants a psychiatric screening, he states "no". PFSH Past Medical History Arthritis: Yes Asthma: Yes Blood Disorders: No Anxiety: Yes Depression: Yes Heart Rhythm Problems: No Cancer: No Cardiovascular Problems: No High Cholesterol: Yes Chemotherapy: No Chest Pain: No Congestive Heart Failure: No COPD: Yes Cerebrovascular Accident: No Diabetes: No Diminished Hearing: No Endocrine: Yes Gastrointestinal Disorders: Yes GERD: No Genitourinary: No Headaches: No Hiatal Hernia: No Heparin Induced Thrombocytopen: No Hypertension: No Immune Disorder: No Implanted Vascular Access Dvce: No Kidney Stones: No Musculoskeletal: Yes Neurologic: No Psychiatric: Yes (depression) Reproductive: No Respiratory: Yes Migraines: No Radiation Therapy: No Renal Failure: No Seizures: No Sickle Cell Disease: No Sleep Apnea: Yes (cpap) Thyroid Disease: Yes Ulcer: No Past Surgical History Abdominal Surgery: No AICD: No Arteriovenous Shunt: No Body Medical Devices: LEFT FEMUR HIP NAIL Cardiac Surgery: No Ear Surgery: No Endocrine Surgery: No Eye Surgery: No Genitourinary Surgery: No Insulin Pump: No Joint Replacement: No Neurologic Surgery: No Oral Surgery: No Pacemaker: Yes Thoracic Surgery: No Other Surgery: Yes Social History Alcohol Use: Yes (OCC) Tobacco Use: No (QUIT 20 YEARS AGO) Substance Use: Yes Allergies-Medications (Allergen,Severity, Reaction): Coded Allergies: No Known Allergies (Verified Allergy, Unknown, 05/24/17) Reported Meds & Prescriptions Reported Meds & Active Scripts Active Potassium Chloride Microencaps 20 Meq Tab 40 Meq PO ONCE 30 Days Furosemide 20 Mg Tab 20 Mg PO DAILY 30 Days Gnp Vitamin B-1 (Thiamine HCl) 100 Mg Tab 100 Mg PO DAILY 30 Days Gnp Senna Plus 8.6-50 mg (Sennosides-Docusate Sodium) 8.6 Mg-50 Mg Tab 1 Tab PO BID 30 Days Venlafaxine ER 24 HR (Venlafaxine HCl) 225 Mg Tab 225 Mg PO DAILY Trazodone (Trazodone HCl) 100 Mg Tablet 200 Mg PO HS Reported Synthroid (Levothyroxine Sodium) 25 Mcg Tab 25 Mcg PO DAILY Review of Systems Except as stated in HPI: all other systems reviewed are Neg Physical Exam Narrative GENERAL: Well-nourished, well-developed male patient, afebrile. SKIN: Focused skin assessment warm/dry. HEAD: Normocephalic. Atraumatic. EYES: No scleral icterus. No injection or drainage. NECK: Supple, trachea midline. No JVD or lymphadenopathy. CARDIOVASCULAR: Regular rate and rhythm without murmurs, gallops, or rubs. RESPIRATORY: Breath sounds equal bilaterally. No accessory muscle use. Lung sounds are clear to auscultation. GASTROINTESTINAL: Abdomen soft, non-tender, nondistended. MUSCULOSKELETAL: No cyanosis, or edema. BACK: Nontender without obvious deformity. No CVA tenderness. Data Data Last Documented VS Vital Signs Date Time Temp Pulse Resp B/P (MAP) Pulse Ox O2 Delivery O2 Flow Rate FiO2 05/24/17 14:51 95 Room Air 05/24/17 13:45 97.9 116 16 117/77 (90) Orders Orders Electrocardiogram (05/24/17 14:29) Complete Blood Count With Diff (05/24/17 14:29) Comprehensive Metabolic Panel (05/24/17 14:29) Magnesium (Mg) (05/24/17 14:29) Ckmb (Isoenzyme) Profile (05/24/17 14:29) Troponin I (05/24/17 14:29) Urinalysis - C+S If Indicated (05/24/17 14:29) Chest, Single Ap (05/24/17 14:29) Ecg Monitoring (05/24/17 14:29) Iv Access Insert/Monitor (05/24/17 14:29) Oximetry (05/24/17 14:29) Sodium Chloride 0.9% Flush (Ns Flush) (05/24/17 14:30) Ondansetron Inj (Zofran Inj) (05/24/17 14:30) CKMB (05/24/17 15:15) CKMB% (05/24/17 15:15) Labs Laboratory Tests Test 05/24/17 15:15 05/24/17 16:55 White Blood Count 8.2 TH/MM3 Red Blood Count 4.38 MIL/MM3 Hemoglobin 14.4 GM/DL Hematocrit 42.9 % Mean Corpuscular Volume 97.9 FL Mean Corpuscular Hemoglobin 32.9 PG Mean Corpuscular Hemoglobin Concent 33.7 % Red Cell Distribution Width 17.1 % Platelet Count 184 TH/MM3 Mean Platelet Volume 6.2 FL Neutrophils (%) (Auto) 84.6 % Lymphocytes (%) (Auto) 7.0 % Monocytes (%) (Auto) 7.8 % Eosinophils (%) (Auto) 0.3 % Basophils (%) (Auto) 0.3 % Neutrophils # (Auto) 7.0 TH/MM3 Lymphocytes # (Auto) 0.6 TH/MM3 Monocytes # (Auto) 0.6 TH/MM3 Eosinophils # (Auto) 0.0 TH/MM3 Basophils # (Auto) 0.0 TH/MM3 CBC Comment DIFF FINAL Differential Comment Blood Urea Nitrogen 6 MG/DL Creatinine 0.74 MG/DL Random Glucose 85 MG/DL Total Protein 6.9 GM/DL Albumin 2.7 GM/DL Calcium Level 8.2 MG/DL Magnesium Level 1.8 MG/DL Alkaline Phosphatase 223 U/L Aspartate Amino Transf (AST/SGOT) 34 U/L Alanine Aminotransferase (ALT/SGPT) 27 U/L Total Bilirubin 0.6 MG/DL Sodium Level 141 MEQ/L Potassium Level 3.7 MEQ/L Chloride Level 103 MEQ/L Carbon Dioxide Level 27.2 MEQ/L Anion Gap 11 MEQ/L Estimat Glomerular Filtration Rate 108 ML/MIN Total Creatine Kinase 102 U/L Creatine Kinase MB 1.9 NG/ML Troponin I LESS THAN 0.02 NG/ML Urine Color LIGHT-ORANGE Urine Turbidity HAZY Urine pH 5.5 Urine Specific [place] 1.032 Urine Protein 30 mg/dL Urine Glucose (UA) NEG mg/dL Urine Ketones 10 mg/dL Urine Occult Blood SMALL Urine Nitrite NEG Urine Bilirubin NEG Urine Urobilinogen LESS THAN 2.0 MG/DL Urine Leukocyte Esterase LARGE Urine RBC 2 /hpf Urine WBC 4 /hpf Urine Squamous Epithelial Cells 2 /hpf Urine Bacteria OCC /hpf Urine Hyaline Casts 6 /lpf Urine Mucus FEW /lpf Microscopic Urinalysis Comment CULT NOT INDICATED MDM Medical Decision Making Medical Screen Exam Complete: Yes Emergency Medical Condition: Yes Medical Record Reviewed: Yes Differential Diagnosis electrolyte abnormality vs. depression vs. general weakness Narrative Course 61-year-old male presents to the emergency department for evaluation of generalized weakness that has been ongoing since he was discharged from [facility] to a nursing facility in January 2017. Patient states that he was told that if he came here and was admitted, he could be placed again. EKG, CBC, CMP, magnesium, CK, troponin, UA, chest x-ray are ordered and pending. Patient is given Zofran 4 mg IV for nausea. EKG shows sinus tachycardia, heart rate 106, no acute ST changes. CBC shows no acute abnormality. CMP shows no acute abnormality. Magnesium is 1.8. CK is 102. Troponin is less than 0.02. UA shows large leukocyte esterase, 4 WBC, culture not indicated. The patient's daughter was at bedside. She states that he was accepted to [facility] starting tomorrow. She would like to know if he could go there from the emergency department. I contacted case management who will contact the facility. Case management contacted [facility] who states they cannot take the patient today and they need to speak to the daughter. The patient will be discharged. He does not meet criteria for admission at this time. The patient verbalizes understanding. The patient was discharged in stable condition with instructions, including return instructions and follow up instructions. Diagnosis Primary Impression: General weakness Referrals: Primary Care Physician call for appointment Patient Instructions: General Instructions, Weakness (ED) Additional Instructions: Follow-up with your primary care physician. Return to the emergency department for any acute worsening of symptoms. Med/Other Pt SpecificInfo: No Change to Meds Disposition: 01 DISCHARGE HOME Condition: Stable Courtney Crawley May 24, 2017 14:36
[2017-05-24 14:51] VITALS: O2SAT 95
--- NOTE | 2017-05-24 15:12 | RADRPT ---
EXAM DATE/TIME: 05/24/2017 14:47 [place] COMPARISON: CHEST SINGLE AP, April 07, 2017, 11:38. INDICATIONS : Cough, diarrhea MEDICAL HISTORY : Hypercholesterolemia. Hypertension sleep apnea, arthritis, anxiety SURGICAL HISTORY : None. ENCOUNTER: Initial ACUITY: 2 weeks PAIN SCORE: 0/10 LOCATION: Bilateral chest FINDINGS: A single view of the chest demonstrates the lungs to be symmetrically aerated without evidence of mas s, infiltrate or effusion. The cardiomediastinal contours are unremarkable. Large air-filled loops of colon are seen in the upper abdomen Osseous structures are intact. CONCLUSION: 1. No evidence of acute cardiomegaly process. 2. Gaseous distention of the colon. Luther Meng MD on May 24, 2017 at 15:09 Board Certified Radiologist. This report was verified electronically.
[2017-05-24 15:53] LABS: BASOPHIL % 0.3 % (0.0-2.0); EOSINOPHIL % 0.3 % (0.0-4.0); HEMATOCRIT 42.9 % (39.0-51.0); HEMOGLOBIN 14.4 GM/DL (13.0-17.0); LYMPHOCYTE # 0.6 TH/MM3 (1.0-4.8); MEAN CELL VOLUME 97.9 FL (80.0-100.0); MEAN CORPUSCULAR HEMOGLOBIN 32.9 PG (27.0-34.0); MEAN CORPUSCULAR HGB CONC 33.7 % (32.0-36.0); MEAN PLATELET VOLUME 6.2 FL (7.0-11.0); MONO % 7.8 % (0.0-8.0); MONOCYTE # 0.6 TH/MM3 (0-0.9); NEUT % 84.6 % (16.0-70.0); PLATELET COUNT 184 TH/MM3 (150-450); RED BLOOD COUNT 4.38 MIL/MM3 (4.50-5.90); RED CELL DISTRIBUTION WIDTH 17.1 % (11.6-17.2); WHITE BLOOD COUNT 8.2 TH/MM3 (4.0-11.0)
[2017-05-24 16:10] LABS: ALBUMIN 2.7 GM/DL (3.4-5.0); ALT (GPT) 27 U/L (12-78); AST (GOT) 34 U/L (15-37); BICARBONATE 27.2 MEQ/L (21.0-32.0); BLOOD UREA NITROGEN 6 MG/DL (7-18); CALCIUM 8.2 MG/DL (8.5-10.1); CHLORIDE 103 MEQ/L (98-107); CREATININE 0.74 MG/DL (0.60-1.30); GLOMERULAR FILTRATION RATE 108 ML/MIN (>89); GLUCOSE,RANDOM 85 MG/DL (74-106); MAGNESIUM 1.8 MG/DL (1.5-2.5); SODIUM (NA) 141 MEQ/L (136-145)
[2017-05-24 16:13] LABS: ALKALINE PHOSPHATASE 223 U/L (45-117); TOTAL BILIRUBIN ADULT 0.6 MG/DL (0.2-1.0); TOTAL PROTEIN 6.9 GM/DL (6.4-8.2); TROPONIN I LESS THAN 0.02 NG/ML (0.02-0.05)
[2017-05-24 17:31] LABS: BACTERIA, URINE OCC /hpf; BLOOD, URINE SMALL (NEG); GLUCOSE,URINE NEG (NEG); HYALINE CAST, URINE 6 /lpf (RARE); KETONE, URINE 10 mg/dL (NEG); MUCUS URINE FEW /lpf (OCC); NITRITE,URINE NEG (NEG); PH, URINE 5.5 (5.0-8.5); SQUAMOUS EPITHELIAL CELL URINE 2 /hpf (0-5); URINE LEUKOCYTE ESTERASE LARGE (NEG)
[2017-05-24 17:35] LABS: URINE COLOR LIGHT-ORANGE (YELLW/STRAW)
[2017-05-24 17:37] LABS: BILIRUBIN, URINE NEG (NEG)
[2017-05-24 18:02] VITALS: BP 145/69; PULSE 101; RESP 18; O2SAT 98
--- NOTE | 2017-05-25 15:29 | EKG ---
Date Performed: 05/24/2017 Time Performed: 15:45:01 PTAGE: 61 years EKG: SINUS TACHYCARDIA ABNORMAL RHYTHM ECG PREVIOUS TRACING : 04/09/2017 09.13 Rate increased since prior tracing. Clinical correlation is recommended. DOCTOR: Colt Palacio Interpretating Date/Time 05/25/2017 15:28:12
== END 2017-05-24 19:02 | disposition home or self-care (01) ==
LOC: NEPE 12:55 → NEDAMB 19:02
DX: R53.1 Weakness (principal); R00.0 Tachycardia, unspecified; R14.3 Flatulence; R11.0 Nausea; R94.31 Abnormal electrocardiogram [ECG] [EKG]; M19.90 Unspecified osteoarthritis, unspecified site; F41.9 Anxiety disorder, unspecified; E78.00 Pure hypercholesterolemia, unspecified; J44.9 Chronic obstructive pulmonary disease, unspecified
CPT/HCPCS: 71045; 80053; 81001; 82550; 82552; 83735; 84484; 85025; 93005; 96374; 99285; J2405

== ENCOUNTER 2017-06-24 17:39 | Inpatient (IN) | payer MEDICARE, MEDICAID ==
[~2017-06-24] VITALS: Ht 171.4 cm; Wt 135.0 kg
[~2017-06-24 17:39] MED LIST changes: -DOXY100T PO; -Lactic Acid 12% Lotion TOPICAL; -NIFE30TA8 PO; -NORC5TAB PO; -Nystatin Powder TOPICAL; -SULF1TAB23 PO
[2017-06-24 17:42] VITALS: BP 161/102; PULSE 123; RESP 20; TEMP 99.6; O2SAT 97
--- NOTE | 2017-06-24 19:36 | PD ---
HPI Chief Complaint: Facial Pain or Swelling Time Seen by Provider: 19:34 Travel History International Travel<30 days: No Contact w/Intl Traveler<30days: No Traveled to known affect area: No History of Present Illness HPI 61-year-old male with history of COPD, asthma, morbid obesity, remote gastric bypass, presents emergency department for evaluation of left-sided facial swelling. Patient states it began yesterday and he thought he had a cyst but today it is much larger and very painful. He states he is unable to fully open his mouth and is very painful in his left ear. Denies any trauma. No fever or chills. Pain is a 10 out of 10, constant, throbbing. He has no other symptoms to report at this time. PFSH Past Medical History Arthritis: Yes Asthma: Yes Blood Disorders: No Anxiety: Yes Depression: Yes Heart Rhythm Problems: No Cancer: No Cardiovascular Problems: No High Cholesterol: Yes Chemotherapy: No Chest Pain: No Congestive Heart Failure: No COPD: Yes Cerebrovascular Accident: No Diabetes: No Diminished Hearing: No Endocrine: Yes Gastrointestinal Disorders: Yes GERD: No Genitourinary: No Headaches: No Hiatal Hernia: No Heparin Induced Thrombocytopen: No Hypertension: No Immune Disorder: No Implanted Vascular Access Dvce: No Kidney Stones: No Musculoskeletal: Yes Neurologic: No Psychiatric: Yes (depression) Reproductive: No Respiratory: Yes Migraines: No Radiation Therapy: No Renal Failure: No Seizures: No Sickle Cell Disease: No Sleep Apnea: Yes (cpap) Thyroid Disease: Yes Ulcer: No Past Surgical History Abdominal Surgery: No AICD: No Arteriovenous Shunt: No Body Medical Devices: LEFT FEMUR HIP NAIL Cardiac Surgery: No Ear Surgery: No Endocrine Surgery: No Eye Surgery: No Genitourinary Surgery: No Insulin Pump: No Joint Replacement: No Neurologic Surgery: No Oral Surgery: No Pacemaker: Yes Thoracic Surgery: No Other Surgery: Yes Social History Alcohol Use: Yes (OCC) Tobacco Use: No (QUIT 20 YEARS AGO) Substance Use: Yes Allergies-Medications (Allergen,Severity, Reaction): Coded Allergies: No Known Allergies (Verified Allergy, Unknown, 05/24/17) Reported Meds & Prescriptions Reported Meds & Active Scripts Active Reported Trazodone (Trazodone HCl) 100 Mg Tablet 100 Mg PO HS Nifedipine 20 Mg Cap 30 Mg PO DAILY Duloxetine DR (Duloxetine HCl) 60 Mg Capdr 60 Mg PO DAILY Potassium Chloride ER (Potassium Chloride) 20 Meq Tab 20 Meq PO BID Meloxicam 15 Mg Tab 15 Mg PO DAILY Levothyroxine (Levothyroxine Sodium) 50 Mcg Tab 50 Mcg PO DAILY Robafen Cough (Dextromethorphan HBr) 15 Mg Cap 10 Ml PO Q6H PRN Hydrocodone-Acetaminophen 5-325 mg Tab 2 Tab PO Q6H PRN Zofran (Ondansetron HCl) 4 Mg Tab 4 Mg PO Q6HR PRN Flexeril (Cyclobenzaprine HCl) 10 Mg Tab 10 Mg PO TID Penicillin V Potassium 500 Mg Tab 500 Mg PO Q6H Seroquel (Quetiapine Fumarate) 100 Mg Tab 100 Mg PO DAILY Wellbutrin Xl 24 HR (Bupropion HCl) 150 Mg Tab 150 Mg PO DAILY Review of Systems Except as stated in HPI: all other systems reviewed are Neg Physical Exam Narrative GENERAL: Obese male patient, lying in bed in no acute distress. SKIN: Focused skin assessment warm/dry. Erythema, excoriation in the abdominal folds. HEAD: Atraumatic. Normocephalic. 18 cm x 7 cm area of erythema and edema along the left mandible extending into the neck. It is soft to palpate, no fluctuance. It is tender for the patient. Patient is unable to open his mouth greater than 2 fingerbreadths. Submental space soft. EYES: Pupils equal and round. No scleral icterus. No injection or drainage. ENT: No nasal bleeding or discharge. Mucous membranes pink and moist. NECK: Trachea midline. No JVD. CARDIOVASCULAR: Regular rate and rhythm. No murmur appreciated. RESPIRATORY: No accessory muscle use. Diminished likely due to girth. Breath sounds equal bilaterally. GASTROINTESTINAL: Abdomen soft, non-tender, nondistended. Hepatic and splenic margins not palpable. MUSCULOSKELETAL: No obvious deformities. No clubbing. No cyanosis. No edema. NEUROLOGICAL: Awake and alert. No obvious cranial nerve deficits. Motor grossly within normal limits. Normal speech. PSYCHIATRIC: Appropriate mood and affect; insight and judgment normal. Data Data Last Documented VS Vital Signs Date Time Temp Pulse Resp B/P (MAP) Pulse Ox O2 Delivery O2 Flow Rate FiO2 06/24/17 19:44 106 18 176/102 (126) 94 Room Air 06/24/17 17:42 99.6 Orders Orders Complete Blood Count With Diff (06/24/17 17:52) Comprehensive Metabolic Panel (06/24/17 17:52) Prothrombin Time / Inr (Pt) (06/24/17 17:52) Act Partial Throm Time (Ptt) (06/24/17 17:52) Lactic Acid Sepsis Protocol (06/24/17 17:52) Iv Access Insert/Monitor (06/24/17 19:50) Ct Facial Bones W Iv Contrast (06/24/17 ) Dexamethasone Inj (Decadron Inj) (06/24/17 20:00) Blood Culture (06/24/17 21:01) Piperacil-Tazo 4.5 Gm Premix (Zosyn 4.5 (06/24/17 21:15) Vancomycin Inj (Vancomycin Inj) (06/24/17 21:15) Sodium Chlor 0.9% 1000 Ml Inj (Ns 1000 M (06/24/17 21:15) Iohexol 350 Inj (Omnipaque 350 Inj) (06/24/17 21:11) Ketorolac Inj (Toradol Inj) (06/24/17 21:45) Sodium Chlor 0.9% 1000 Ml Inj (Ns 1000 M (06/24/17 21:45) Labs Laboratory Tests Test 06/24/17 19:42 White Blood Count 18.1 TH/MM3 Red Blood Count 4.64 MIL/MM3 Hemoglobin 15.0 GM/DL Hematocrit 44.4 % Mean Corpuscular Volume 95.7 FL Mean Corpuscular Hemoglobin 32.4 PG Mean Corpuscular Hemoglobin Concent 33.8 % Red Cell Distribution Width 17.6 % Platelet Count 422 TH/MM3 Mean Platelet Volume 7.0 FL Neutrophils (%) (Auto) 89.0 % Lymphocytes (%) (Auto) 2.9 % Monocytes (%) (Auto) 7.8 % Eosinophils (%) (Auto) 0.1 % Basophils (%) (Auto) 0.2 % Neutrophils # (Auto) 16.1 TH/MM3 Lymphocytes # (Auto) 0.5 TH/MM3 Monocytes # (Auto) 1.4 TH/MM3 Eosinophils # (Auto) 0.0 TH/MM3 Basophils # (Auto) 0.0 TH/MM3 CBC Comment DIFF FINAL Differential Comment Prothrombin Time 13.4 SEC Prothromb Time International Ratio 1.3 RATIO Activated Partial Thromboplast Time 36.0 SEC Blood Urea Nitrogen 16 MG/DL Creatinine 0.78 MG/DL Random Glucose 106 MG/DL Total Protein 7.7 GM/DL Albumin 2.6 GM/DL Calcium Level 8.8 MG/DL Alkaline Phosphatase 123 U/L Aspartate Amino Transf (AST/SGOT) 16 U/L Alanine Aminotransferase (ALT/SGPT) 11 U/L Total Bilirubin 0.5 MG/DL Sodium Level 135 MEQ/L Potassium Level 4.1 MEQ/L Chloride Level 102 MEQ/L Carbon Dioxide Level 27.2 MEQ/L Anion Gap 6 MEQ/L Estimat Glomerular Filtration Rate 102 ML/MIN Lactic Acid Level 1.2 mmol/L [facility] Medical Decision Making Medical Screen Exam Complete: Yes Emergency Medical Condition: Yes Medical Record Reviewed: Yes Differential Diagnosis Parotitis versus sialitis versus abscess versus sepsis Narrative Course 61-year-old male presents to emergency department for evaluation of left facial swelling. Patient is morbidly obese. He appears nontoxic. With a low-grade temperature and tachycardic. Sepsis workup was initiated in triage. Patient is given Decadron here, Zosyn, vancomycin. Laboratory Tests Test 06/24/17 19:42 White Blood Count 18.1 TH/MM3 Red Blood Count 4.64 MIL/MM3 Hemoglobin 15.0 GM/DL Hematocrit 44.4 % Mean Corpuscular Volume 95.7 FL Mean Corpuscular Hemoglobin 32.4 PG Mean Corpuscular Hemoglobin Concent 33.8 % Red Cell Distribution Width 17.6 % Platelet Count 422 TH/MM3 Mean Platelet Volume 7.0 FL Neutrophils (%) (Auto) 89.0 % Lymphocytes (%) (Auto) 2.9 % Monocytes (%) (Auto) 7.8 % Eosinophils (%) (Auto) 0.1 % Basophils (%) (Auto) 0.2 % Neutrophils # (Auto) 16.1 TH/MM3 Lymphocytes # (Auto) 0.5 TH/MM3 Monocytes # (Auto) 1.4 TH/MM3 Eosinophils # (Auto) 0.0 TH/MM3 Basophils # (Auto) 0.0 TH/MM3 CBC Comment DIFF FINAL Differential Comment Prothrombin Time 13.4 SEC Prothromb Time International Ratio 1.3 RATIO Activated Partial Thromboplast Time 36.0 SEC Blood Urea Nitrogen 16 MG/DL Creatinine 0.78 MG/DL Random Glucose 106 MG/DL Total Protein 7.7 GM/DL Albumin 2.6 GM/DL Calcium Level 8.8 MG/DL Alkaline Phosphatase 123 U/L Aspartate Amino Transf (AST/SGOT) 16 U/L Alanine Aminotransferase (ALT/SGPT) 11 U/L Total Bilirubin 0.5 MG/DL Sodium Level 135 MEQ/L Potassium Level 4.1 MEQ/L Chloride Level 102 MEQ/L Carbon Dioxide Level 27.2 MEQ/L Anion Gap 6 MEQ/L Estimat Glomerular Filtration Rate 102 ML/MIN Lactic Acid Level 1.2 mmol/L Last Impressions Maxillofacial CT 06/24/17 0000 Signed Impressions: Service Date/Time: June 20:55 - CONCLUSION: CT findings consistent with acute left parotitis, nonspecific but most likely infectious. No obstructing stone seen. Milder inflammatory changes are seen of the left submandibular gland as well. Associated overlying subcutaneous edema/swelling and mild, presumably reactive jugulodigastric lymphadenopathy. No mass or drainable fluid collection. Kenrick Laboy MD Findings are reviewed with my attending physician. [facility]. Sepsis Criteria SIRS Criteria (2 or more): Heart rate over 90, WBC > 42692, < 4000 or > 10% bands Sepsis Criteria (SIRS+source): Infect source susp/known Diagnosis Primary Impression: Sepsis Qualified Codes: A41.9 - Sepsis, unspecified organism Additional Impression: Parotitis Admitting Information Admitting Physician Requests: Admit Condition: Stable Britt Myers Jun 24, 2017 19:36
[2017-06-24 19:44] VITALS: BP 176/102; PULSE 106; RESP 18; O2SAT 94
[2017-06-24] MEDS ORDERED: DEXAMETHASONE SOD PHOS 4 MG/ML VIAL IV PUSH ONE (20:00)
[2017-06-24 20:12] LABS: AUTOMATED NEUTROPHIL # 16.1 TH/MM3 (1.8-7.7); BASOPHIL % 0.2 % (0.0-2.0); EOSINOPHIL % 0.1 % (0.0-4.0); HEMATOCRIT 44.4 % (39.0-51.0); LYMPH % 2.9 % (9.0-44.0); LYMPHOCYTE # 0.5 TH/MM3 (1.0-4.8); MEAN CELL VOLUME 95.7 FL (80.0-100.0); MEAN CORPUSCULAR HEMOGLOBIN 32.4 PG (27.0-34.0); MEAN CORPUSCULAR HGB CONC 33.8 % (32.0-36.0); MONO % 7.8 % (0.0-8.0); MONOCYTE # 1.4 TH/MM3 (0-0.9); PLATELET COUNT 422 TH/MM3 (150-450); RED BLOOD COUNT 4.64 MIL/MM3 (4.50-5.90); RED CELL DISTRIBUTION WIDTH 17.6 % (11.6-17.2); WHITE BLOOD COUNT 18.1 TH/MM3 (4.0-11.0)
[2017-06-24 20:17] LABS: INTERNATIONAL NORMALIZED RATIO 1.3 RATIO; PROTHROMBIN TIME - PATIENT 13.4 SEC (9.8-11.6)
[2017-06-24] MEDS ORDERED: HYDR-3516 PO (20:18)
[2017-06-24] MEDS ORDERED: DULO1CAP3 PO (20:18)
[2017-06-24] MEDS ORDERED: POTA-163 PO (20:18)
[2017-06-24] MEDS ORDERED: LEVO50TA4 PO (20:18)
[2017-06-24] MEDS ORDERED: DEXT1CAP12 PO (20:18)
[2017-06-24] MEDS ORDERED: PENI500T PO (20:18)
[2017-06-24] MEDS ORDERED: NIFE20 PO (20:18)
[2017-06-24] MEDS ORDERED: BUPR150XL PO (20:18)
[2017-06-24] MEDS ORDERED: TRAZ100T10 PO (20:18)
[2017-06-24] MEDS ORDERED: CYCL10TA PO (20:18)
[2017-06-24] MEDS ORDERED: ZOFR4TAB PO (20:18)
[2017-06-24] MEDS ORDERED: MELO15TA20 PO (20:18)
[2017-06-24] MEDS ORDERED: SERO100T PO (20:18)
[2017-06-24 20:25] LABS: ALT (GPT) 11 U/L (12-78)
[2017-06-24 20:28] LABS: ALKALINE PHOSPHATASE 123 U/L (45-117); TOTAL BILIRUBIN ADULT 0.5 MG/DL (0.2-1.0); TOTAL PROTEIN 7.7 GM/DL (6.4-8.2)
[2017-06-24 20:31] LABS: ALBUMIN 2.6 GM/DL (3.4-5.0); AST (GOT) 16 U/L (15-37); BICARBONATE 27.2 MEQ/L (21.0-32.0); BLOOD UREA NITROGEN 16 MG/DL (7-18); CALCIUM 8.8 MG/DL (8.5-10.1); CHLORIDE 102 MEQ/L (98-107); CREATININE 0.78 MG/DL (0.60-1.30); GLOMERULAR FILTRATION RATE 102 ML/MIN (>89); GLUCOSE,RANDOM 106 MG/DL (74-106); SODIUM (NA) 135 MEQ/L (136-145)
[2017-06-24] MEDS ORDERED: IOHEXOL 350 MG/ML 10 ML VIAL (for RAD DIAG) IVCONTRAST ONE (21:11)
[2017-06-24] MEDS ORDERED: SODIUM CHLOR 0.9% 1000 ML INJ 1,000 ML IV ONE ×2 (21:15→21:45)
[2017-06-24] MEDS ORDERED: VANCOMYCIN INJ 1,000 MG in SODIUM CHLOR 0.9% 250 ML INJ 250 ML IV ONE (21:15)
[2017-06-24] MEDS ORDERED: PIPERACIL-TAZO 4.5 GM PREMIX 100 ML IV ONE (21:15)
--- NOTE | 2017-06-24 21:22 | RADRPT ---
EXAM DATE/TIME: 06/24/2017 20:55 [place] COMPARISON: No previous studies available for comparison. INDICATIONS : Left side facial swelling and cephalgia. IV CONTRAST: 70 cc Omnipaque 350 (iohexol) IV RADIATION DOSE: 49.44 CTDIvol (mGy) ; Patient body habitus MEDICAL HISTORY : Chronic obstructive pulmonary disease. SURGICAL HISTORY : None. ENCOUNTER: Initial ACUITY: 4 - 6 days PAIN SCALE: 10/10 LOCATION: Right facial TECHNIQUE: Volumetric scanning of the facial bones was performed. Using automated exposure control and adjustme nt of the mA and/or kV according to patient size, radiation dose was kept as low as reasonably achiev able to obtain optimal diagnostic quality images. DICOM format image data is available electronicall y for review and comparison. FINDINGS: ORBITS: The orbital and infraorbital osseous structures are intact. The retroconal structures have a normal configuration. No radiopaque foreign bodies are seen. NASAL BONE: The nasal bone and maxillary spine are intact ZYGOMATIC ARCHES: Symmetric without evidence of fracture. SINUSES: The maxillary, ethmoid and frontal sinuses are intact. No air-fluid levels seen. NASAL CAVITY: The nasal septum is intact and midline. The lacrimal ducts are intact. SOFT TISSUES: Enlarged and indurated left parotid gland. Similar but slightly less severe changes involve the left submandibular gland. The overlying subcutaneous fat is swollen and edematous. There are adjacent lymp h nodes up to 13 mm in greatest short axis dimension. No mass or fluid collection demonstrated. Also no evidence of an obstructing stone. Visualized vessels are patent. INTRACRANIAL: No intracranial air seen. CRIBIFORM PLATE: Grossly intact. CONCLUSION: CT findings consistent with acute left parotitis, nonspecific but most likely infectious. No obstruct ing stone seen. Milder inflammatory changes are seen of the left submandibular gland as well. Associa isabel overlying subcutaneous edema/swelling and mild, presumably reactive jugulodigastric lymphadenopat hy. No mass or drainable fluid collection. Kenrick Laboy MD on June 24, 2017 at 21:16 Board Certified Radiologist. This report was verified electronically.
[2017-06-24] MEDS ORDERED: KETOROLAC TROMETHAMINE 30 MG/ML (IVP) VIAL IV PUSH ONE (21:45)
[2017-06-24 22:20] VITALS: BP 170/95; PULSE 112; RESP 18; O2SAT 95
[2017-06-24] MEDS ORDERED: METOPROLOL TARTRATE 5 MG/5 ML VIAL IV PUSH ONE (23:00)
[2017-06-24 23:29] VITALS: BP 165/100; PULSE 89; RESP 18
[2017-06-24] MEDS ORDERED: ONDANSETRON HCL 4 MG/2 ML VIAL IVP PRN (23:30)
[2017-06-24] MEDS ORDERED: SODIUM CHLORIDE 0.9% FLUSH 10 ML FLUSH IV FLUSH PRN (23:30)
[2017-06-24] MEDS ORDERED: NALOXONE HCL 0.4 MG/ML AMP IV PUSH PRN (23:30)
[2017-06-24] MEDS ORDERED: ACETAMINOPHEN 325 MG TAB PO PRN (23:30)
[2017-06-25] VITALS: BP 160/103; PULSE 94; RESP 20; TEMP 96.6; O2SAT 96
--- NOTE | 2017-06-25 00:51 | HHI.HP ---
[facility] Unknown Admission Diagnosis sepsis; parotitis Diagnoses: Travel History International Travel<30 Days: No Contact w/Intl Traveler <30 Da: No Traveled to Known Affected Are: No History of Present Illness 61-year-old male with a past medical history significant for morbid obesity, hypertension, hypothyroidism, depression and alcohol abuse presents the emergency department with chief complaint of left-sided facial swelling. The patient reports that the swelling began yesterday. He states that it is getting larger in size and exquisitely painful. Patient complains that he is unable to fully open his mouth and has pain that radiates to his left ear. He denies any trauma. Negative fever/chills. Chest pain/shortness of breath. Denies nausea/vomiting/diarrhea. Review of Systems Except as stated in HPI: all other systems reviewed are Neg Past Family Social History Past Medical History Morbid obesity Alcohol abuse Hypothyroidism Depression Chronic lower extremity edema MU Past Surgical History Gastric bypass Reported Medications Reported Meds & Active Scripts Active Reported Trazodone (Trazodone HCl) 100 Mg Tablet 100 Mg PO HS Nifedipine 20 Mg Cap 30 Mg PO DAILY Duloxetine DR (Duloxetine HCl) 60 Mg Capdr 60 Mg PO DAILY Potassium Chloride ER (Potassium Chloride) 20 Meq Tab 20 Meq PO BID Meloxicam 15 Mg Tab 15 Mg PO DAILY Levothyroxine (Levothyroxine Sodium) 50 Mcg Tab 50 Mcg PO DAILY Robafen Cough (Dextromethorphan HBr) 15 Mg Cap 10 Ml PO Q6H PRN Hydrocodone-Acetaminophen 5-325 mg Tab 2 Tab PO Q6H PRN Zofran (Ondansetron HCl) 4 Mg Tab 4 Mg PO Q6HR PRN Flexeril (Cyclobenzaprine HCl) 10 Mg Tab 10 Mg PO TID Penicillin V Potassium 500 Mg Tab 500 Mg PO Q6H Seroquel (Quetiapine Fumarate) 100 Mg Tab 100 Mg PO DAILY Wellbutrin Xl 24 HR (Bupropion HCl) 150 Mg Tab 150 Mg PO DAILY Allergies: Coded Allergies: No Known Allergies (Verified Allergy, Unknown, 05/24/17) Family History Negative for CAD/DM Social History Denies tobacco. Patient has a history of drinking 1 L of wine nightly. Denies illicit drugs. Physical Exam Vital Signs Vital Signs Date Time Temp Pulse Resp B/P (MAP) Pulse Ox O2 Delivery O2 Flow Rate FiO2 06/24/17 23:54 06/24/17 23:29 89 18 165/100 (121) 06/24/17 22:20 112 18 170/95 (120) 95 Room Air 06/24/17 19:44 106 18 176/102 (126) 94 Room Air 06/24/17 19:40 18 06/24/17 17:42 99.6 123 20 161/102 (121) 97 Physical Exam GENERAL: Morbidly obese male sitting in wheelchair SKIN: Large, erythematous and edematous swollen area along the left side of the mandible extending into the neck. No induration or fluctuance. Exquisitely tender to palpation. No areas of drainage. HEAD: Atraumatic. Normocephalic. No temporal or scalp tenderness. EYES: Pupils equal round and reactive. Extraocular motions intact. No scleral icterus. No injection or drainage. ENT: Nose without bleeding, purulent drainage or septal hematoma. Throat exam limited by patient's inability to fully open his mouth. Airway patent. NECK: Trachea midline. Supple, nontender, no meningeal signs. CARDIOVASCULAR: Regular rate and rhythm without murmurs, gallops, or rubs. RESPIRATORY: Clear to auscultation. Breath sounds equal bilaterally. No wheezes , rales, or rhonchi. GASTROINTESTINAL: Abdomen soft, non-tender, nondistended. No hepato-splenomegaly , or palpable masses. No guarding. MUSCULOSKELETAL: 2+ edema bilaterally, chronic NEUROLOGICAL: Awake and alert. Cranial nerves II through XII intact. Motor and sensory grossly within normal limits. Normal speech. Laboratory Laboratory Tests Test 06/24/17 19:42 White Blood Count 18.1 Red Blood Count 4.64 Hemoglobin 15.0 Hematocrit 44.4 Mean Corpuscular Volume 95.7 Mean Corpuscular Hemoglobin 32.4 Mean Corpuscular Hemoglobin Concent 33.8 Red Cell Distribution Width 17.6 Platelet Count 422 Mean Platelet Volume 7.0 Neutrophils (%) (Auto) 89.0 Lymphocytes (%) (Auto) 2.9 Monocytes (%) (Auto) 7.8 Eosinophils (%) (Auto) 0.1 Basophils (%) (Auto) 0.2 Neutrophils # (Auto) 16.1 Lymphocytes # (Auto) 0.5 Monocytes # (Auto) 1.4 Eosinophils # (Auto) 0.0 Basophils # (Auto) 0.0 CBC Comment DIFF FINAL Differential Comment Prothrombin Time 13.4 Prothromb Time International Ratio 1.3 Activated Partial Thromboplast Time 36.0 Blood Urea Nitrogen 16 Creatinine 0.78 Random Glucose 106 Total Protein 7.7 Albumin 2.6 Calcium Level 8.8 Alkaline Phosphatase 123 Aspartate Amino Transf (AST/SGOT) 16 Alanine Aminotransferase (ALT/SGPT) 11 Total Bilirubin 0.5 Sodium Level 135 Potassium Level 4.1 Chloride Level 102 Carbon Dioxide Level 27.2 Anion Gap 6 Estimat Glomerular Filtration Rate 102 Lactic Acid Level 1.2 Date/Time Source Procedure Growth Status 06/24/17 21:20 Blood Peripheral Aerobic Blood Culture Pending Received 06/24/17 21:20 Blood Peripheral Anaerobic Blood Culture Pending Received Result Diagram: 06/24/17194106/24/171941 Caprini VTE Risk Assessment Caprini VTE Risk Assessment: Mod/High Risk (score >= 2) Caprini Risk Assessment Model Point Value = 1 Point Value = 2 Point Value = 3 Point Value = 5 Age 41-60 Minor surgery BMI > 25 kg/m2 Swollen legs Varicose veins or History of unexplained or recurrent spontaneous Oral contraceptives or hormone replacement Sepsis (< 1 month) Serious lung disease, including pneumonia (< 1 month) Abnormal pulmonary function Acute myocardial infarction Congestive heart failure (< 1 month) History of inflammatory bowel disease Medical patient at bed rest Age 61-74 Arthroscopic surgery Major open surgery (> 45 min) Laparoscopic surgery (> 45 min) Malignancy Confined to bed (> 72 hours) Immobilizing plaster cast Central venous access Age >= 75 History of VTE Family history of VTE Factor V Leiden Prothrombin [id number] Lupus anticoagulant Anticardiolipin antibodies Elevated serum homocysteine Heparin-induced thrombocytopenia Other congenital or acquired thrombophilia Stroke (< 1 month) Elective arthroplasty Hip, pelvis, or leg fracture Acute spinal cord injury (< 1 month) Prophylaxis Regimen Total Risk Factor Score Risk Level Prophylaxis Regimen 0-1 Low Early ambulation 2 Moderate Order ONE of the following: *Sequential Compression Device (SCD) *Heparin 5000 units SQ BID 3-4 Higher Order ONE of the following medications: *Heparin 5000 units SQ TID *Enoxaparin/Lovenox 40 mg SQ daily (WT < 150 kg, CrCl > 30 mL/min) *Enoxaparin/Lovenox 30 mg SQ daily (WT < 150 kg, CrCl > 10-29 mL/min) *Enoxaparin/Lovenox 30 mg SQ BID (WT < 150 kg, CrCl > 30 mL/min) AND/OR *Sequential Compression Device (SCD) 5 or more Highest Order ONE of the following medications: *Heparin 5000 units SQ TID (Preferred with Epidurals) *Enoxaparin/Lovenox 40 mg SQ daily (WT < 150 kg, CrCl > 30 mL/min) *Enoxaparin/Lovenox 30 mg SQ daily (WT < 150 kg, CrCl > 10-29 mL/min) *Enoxaparin/Lovenox 30 mg SQ BID (WT < 150 kg, CrCl > 30 mL/min) AND *Sequential Compression Device (SCD) Assessment and Plan Assessment and Plan Assessment/plan: 1. Parotitis Maxillofacial CT consistent with acute left parotitis without mass or drainable fluid collection IV clindamycin IV steroids 2. Hypertension Continue home medications 3. Morbid obesity Counseled on weight reduction Heart healthy diet 4. Hypothyroidism Continue home Synthroid 5. Alcohol abuse Cessation counseling provided [facility] protocol FEN Heart healthy diet Electrolytes: Monitor and replete when necessary Heparin Physician Certification 2 Midnight Certification Type: Admission for Inpatient Services Order for Inpatient Services The services are ordered in accordance with Medicare regulations or non- Medicare payer requirements, as applicable. In the case of services not specified as inpatient-only, they are appropriately provided as inpatient services in accordance with the 2-midnight benchmark. Estimated LOS (days): 2 2 days is the estimated time the patient will need to remain in the hospital, assuming treatment plan goals are met and no additional complications. Post-Hospital Plan: Not yet determined Naz Pena MD Jun 25, 2017 00:51
[2017-06-25] MEDS: MORPHINE SULFATE 2 MG/ML INJ IV PUSH PRN ×5 (00:54→21:02)
[2017-06-25 04:00] VITALS: BP 138/90; PULSE 114; RESP 20; TEMP 96.9; O2SAT 94
[2017-06-25 05:22] LABS: AUTOMATED NEUTROPHIL # 22.7 TH/MM3 (1.8-7.7); BASOPHIL % 0.2 % (0.0-2.0); HEMATOCRIT 43.6 % (39.0-51.0); HEMOGLOBIN 14.7 GM/DL (13.0-17.0); LYMPH % 1.2 % (9.0-44.0); LYMPHOCYTE # 0.3 TH/MM3 (1.0-4.8); MEAN CELL VOLUME 96.8 FL (80.0-100.0); MEAN CORPUSCULAR HEMOGLOBIN 32.7 PG (27.0-34.0); MEAN CORPUSCULAR HGB CONC 33.8 % (32.0-36.0); MONO % 2.8 % (0.0-8.0); MONOCYTE # 0.7 TH/MM3 (0-0.9); NEUT % 95.8 % (16.0-70.0); PLATELET COUNT 366 TH/MM3 (150-450); RED BLOOD COUNT 4.51 MIL/MM3 (4.50-5.90); RED CELL DISTRIBUTION WIDTH 18.5 % (11.6-17.2); WHITE BLOOD COUNT 23.7 TH/MM3 (4.0-11.0)
[2017-06-25 05:47] LABS: BICARBONATE 24.7 MEQ/L (21.0-32.0); CALCIUM 8.6 MG/DL (8.5-10.1); CREATININE 0.62 MG/DL (0.60-1.30)
[2017-06-25] MEDS: DEXAMETHASONE SOD PHOS 4 MG/ML VIAL IV PUSH SCH ×3 (06:43→21:02)
[2017-06-25] MEDS: HEPARIN SODIUM - SQ 10,000 UNITS/ML VIAL SQ SCH ×3 (06:43→21:02)
[2017-06-25] MEDS: LEVOTHYROXINE SODIUM 50 MCG TAB PO SCH (06:44)
[2017-06-25] MEDS: CLINDAMYCIN 600 MG/NS PREMIX 50 ML IV SCH ×5 (06:44→23:54)
[2017-06-25 08:00] VITALS: BP 155/97; PULSE 100; RESP 17; TEMP 96.1; O2SAT 93
[2017-06-25] MEDS: DULoxetine HCl DR 60 MG CAP PO SCH (09:34)
[2017-06-25] MEDS: SODIUM CHLORIDE 0.9% FLUSH 10 ML FLUSH IV FLUSH SCH ×2 (09:34→21:03)
[2017-06-25] MEDS: buPROPion HCL 150 MG SUSTAINED RELEASE TAB PO SCH (09:34)
[2017-06-25] MEDS: NIFEdipine 30 MG SUSTAINED RELEASE TAB PO SCH (09:34)
[2017-06-25] MEDS: QUEtiapine FUMARATE 100 MG TAB PO SCH (09:35)
[2017-06-25 12:00] VITALS: BP 132/88; PULSE 105; RESP 18; TEMP 97.1; O2SAT 95
--- NOTE | 2017-06-25 13:58 | HHI.PR ---
Subjective Remarks Follow up parotitis. Patient still having pain in the left side of his face/ neck. No dyspnea, chest pain, nausea, vomiting. He reports diarrhea for the past 2 months, 2 loose stools/day. Objective Vitals Vital Signs Date Time Temp Pulse Resp B/P (MAP) Pulse Ox O2 Delivery O2 Flow Rate FiO2 06/25/17 12:00 97.1 105 18 132/88 (103) 95 06/25/17 08:00 96.1 100 17 155/97 (116) 93 06/25/17 05:31 18 06/25/17 04:00 96.9 114 20 138/90 (106) 94 06/25/17 02:55 18 06/25/17 00:00 96.6 94 20 160/103 (122) 96 06/24/17 23:54 06/24/17 23:29 89 18 165/100 (121) 06/24/17 22:20 112 18 170/95 (120) 95 Room Air 06/24/17 19:44 106 18 176/102 (126) 94 Room Air 06/24/17 19:40 18 06/24/17 17:42 99.6 123 20 161/102 (121) 97 I/O 06/24/17 06/24/17 06/24/17 06/25/17 06/25/17 06/25/17 06:59 14:59 22:59 06:59 14:59 22:59 Intake Total 1350 ml 480 ml Output Total 450 ml Balance 1350 ml 480 ml -450 ml Intake Oral 480 ml IV Total 1350 ml Output Drainage Total 450 ml # Voids 2 # Bowel Movements 0 Result Diagram: 06/25/17 0456 06/25/17 0456 Imaging Last Impressions Maxillofacial CT 06/24/17 0000 Signed Impressions: Service Date/Time: June 20:55 - CONCLUSION: CT findings consistent with acute left parotitis, nonspecific but most likely infectious. No obstructing stone seen. Milder inflammatory changes are seen of the left submandibular gland as well. Associated overlying subcutaneous edema/swelling and mild, presumably reactive jugulodigastric lymphadenopathy. No mass or drainable fluid collection. Kenrick Laboy MD Objective Remarks General: Obese male in no acute distress. In a wheelchair. Heart: Regular rate and rhythm. No murmur. Lungs: Clear to auscultation bilaterally. No wheezes, rales, or rhonchi. Breathing is nonlabored. Abdomen: Soft, nontender, nondistended. Extremities: 2+ bilateral lower extremity edema. Chronic venous stasis changes bilaterally. Psych: Alert and oriented. Skin: There is erythema and edema over the left mandible extending to involve the lower earlobe and left side of his neck. There is no open wound or drainage. No fluctuance is noted. Procedures None Urinary Catheter: No Vascular Central Line Catheter: No A/P Assessment and Plan 1. Parotitis: Maxillofacial CT consistent with acute left parotitis without mass or drainable fluid collection. Continue IV clindamycin, Decadron. 2. Hypertension: Continue home medications. 3. Morbid obesity: Counseled on weight reduction. Heart healthy diet. 4. Hypothyroidism: Continue Synthroid. 5. Alcohol abuse: Patient counseled. [facility] protocol. 6. Sepsis: Secondary to parotitis. Patient has leukocytosis, tachycardia. Continue antibiotics. Blood cultures are negative so far. 7. DVT prophylaxis: Heparin. Mikal Miller MD Jun 25, 2017 13:58
[2017-06-25 16:00] VITALS: BP 135/91; PULSE 111; RESP 16; TEMP 97.4; O2SAT 94
[2017-06-25 20:00] VITALS: BP 134/89; PULSE 110; RESP 20; TEMP 96.5; O2SAT 95
[2017-06-25] MEDS: traZODone HCL 100 MG TAB PO SCH (21:02)
[2017-06-26] VITALS: BP 135/86; PULSE 112; RESP 20; TEMP 96.3; O2SAT 94
[2017-06-26] MEDS: LEVOTHYROXINE SODIUM 50 MCG TAB PO SCH (05:55)
[2017-06-26] MEDS: CLINDAMYCIN 600 MG/NS PREMIX 50 ML IV SCH ×3 (05:55→17:02)
[2017-06-26] MEDS: HEPARIN SODIUM - SQ 10,000 UNITS/ML VIAL SQ SCH ×3 (05:55→20:39)
[2017-06-26] MEDS: DEXAMETHASONE SOD PHOS 4 MG/ML VIAL IV PUSH SCH ×3 (05:55→20:35)
[2017-06-26] MEDS: MORPHINE SULFATE 2 MG/ML INJ IV PUSH PRN ×2 (05:58→12:06)
[2017-06-26 08:00] VITALS: BP 128/84; PULSE 104; RESP 16; TEMP 97.3; O2SAT 94
[2017-06-26 08:16] LABS: AUTOMATED NEUTROPHIL # 19.2 TH/MM3 (1.8-7.7); HEMATOCRIT 41.5 % (39.0-51.0); HEMOGLOBIN 13.9 GM/DL (13.0-17.0); LYMPH % 1.4 % (9.0-44.0); LYMPHOCYTE # 0.3 TH/MM3 (1.0-4.8); MEAN CELL VOLUME 95.7 FL (80.0-100.0); MEAN CORPUSCULAR HGB CONC 33.5 % (32.0-36.0); MEAN PLATELET VOLUME 7.2 FL (7.0-11.0); MONO % 4.1 % (0.0-8.0); MONOCYTE # 0.8 TH/MM3 (0-0.9); NEUT % 94.5 % (16.0-70.0); PLATELET COUNT 402 TH/MM3 (150-450); RED BLOOD COUNT 4.34 MIL/MM3 (4.50-5.90); RED CELL DISTRIBUTION WIDTH 18.1 % (11.6-17.2); WHITE BLOOD COUNT 20.3 TH/MM3 (4.0-11.0)
[2017-06-26] MEDS: buPROPion HCL 150 MG SUSTAINED RELEASE TAB PO SCH (08:40)
[2017-06-26] MEDS: DULoxetine HCl DR 60 MG CAP PO SCH (08:40)
[2017-06-26] MEDS: QUEtiapine FUMARATE 100 MG TAB PO SCH (08:40)
[2017-06-26] MEDS: NIFEdipine 30 MG SUSTAINED RELEASE TAB PO SCH (08:40)
[2017-06-26] MEDS: SODIUM CHLORIDE 0.9% FLUSH 10 ML FLUSH IV FLUSH SCH ×2 (08:53→20:30)
[2017-06-26] MEDS ORDERED: INFLUENZA VIRUS VACCINE (QUADRIVALENT) 0.5 ML SYR IM ONE (10:00)
[2017-06-26 12:00] VITALS: BP 120/85; PULSE 111; RESP 17; TEMP 96; O2SAT 94
--- NOTE | 2017-06-26 12:42 | HHI.PR ---
Subjective Remarks Follow up parotitis. Patient still with significant pain in the left mandible region. States that he believes he is up to date on all immunizations. He reports a history of mumps at age 6. Objective Vitals Vital Signs Date Time Temp Pulse Resp B/P (MAP) Pulse Ox O2 Delivery O2 Flow Rate FiO2 06/26/17 08:00 97.3 104 16 128/84 (99) 94 06/26/17 00:00 96.3 112 20 135/86 (102) 94 06/25/17 20:00 96.5 110 20 134/89 (104) 95 06/25/17 16:00 97.4 111 16 135/91 (106) 94 I/O 06/25/17 06/25/17 06/25/17 06/26/17 06/26/17 06/26/17 07:00 15:00 23:00 07:00 15:00 23:00 Intake Total 480 ml 50 ml 890 ml 460 ml Output Total 450 ml Balance 480 ml -400 ml 890 ml 460 ml Intake Oral 480 ml 840 ml 360 ml IV Total 50 ml 50 ml 100 ml Output Drainage Total 450 ml # Voids 2 3 1 # Bowel Movements 0 0 0 Result Diagram: 06/26/17 0706 06/25/17 0456 Imaging Last Impressions Maxillofacial CT 06/24/17 0000 Signed Impressions: Service Date/Time: June 20:55 - CONCLUSION: CT findings consistent with acute left parotitis, nonspecific but most likely infectious. No obstructing stone seen. Milder inflammatory changes are seen of the left submandibular gland as well. Associated overlying subcutaneous edema/swelling and mild, presumably reactive jugulodigastric lymphadenopathy. No mass or drainable fluid collection. Kenrick Laboy MD Objective Remarks General: Obese male in no acute distress. Heart: Regular rate and rhythm. No murmur. Lungs: Clear to auscultation bilaterally. No wheezes, rales, or rhonchi. Breathing is nonlabored. Abdomen: Soft, nontender, nondistended. Extremities: 2+ bilateral lower extremity edema. Chronic venous stasis changes bilaterally. Psych: Alert and oriented. Skin: There is erythema and edema over the left mandible extending to involve the lower earlobe and left side of his neck. There is no open wound or drainage. No fluctuance is noted. Unchanged from yesterday. Procedures None Urinary Catheter: No Vascular Central Line Catheter: No A/P Assessment and Plan 1. Parotitis: Maxillofacial CT consistent with acute left parotitis without mass or drainable fluid collection. Continue IV clindamycin, Decadron. Continue pain control. 2. Hypertension: Continue home medications. 3. Morbid obesity: Counseled on weight reduction. Heart healthy diet. 4. Hypothyroidism: Continue Synthroid. 5. Alcohol abuse: Patient counseled. [facility] protocol. 6. Sepsis: Secondary to parotitis. Patient has leukocytosis, tachycardia. Continue antibiotics. Blood cultures are negative so far. Consult infectious disease. 7. DVT prophylaxis: Heparin. Mikal Miller MD Jun 26, 2017 12:42
[2017-06-26] MEDS ORDERED: ACETAMINOPHEN/HYDROcodone 325 MG/5 MG TAB PO PRN (12:45)
[2017-06-26 16:00] VITALS: BP 131/83; PULSE 99; RESP 16; TEMP 96.1; O2SAT 94
--- NOTE | 2017-06-26 17:11 | PD.ID.CON ---
History of Present Illness Service Infectious disease Consult Requested By Dr. Miller Reason for Consult Evaluation and management of acute parotitis Primary Care Physician Unknown Diagnoses: History of Present Illness Mr. Lazaro is a 61 year old male with past medical history significant for morbid obesity, alcohol abuse up to 1 L of wine per day reportedly, hypertension, hypothyroidism, depression. With this background patient presents to the emergency department complaining of left-sided facial weakness at least 3 days prior to admission. He was getting larger in size and exquisitely painful so he decided to come to the emergency department. Patient reports that he's unable to completely open his mouth and has pain radiating to his left ear. He denies any ear discharge. Denies any tinnitus. Patient reports he had bad teeth that need to be taken out. He denies any trauma to the area. He does not know his mom status. He denies any other systemic symptoms. Upon admission patient was started on clindamycin IV blood cultures have been done which are negative. Patient has received steroids as well as antibiotics and has not shown any remarkable improvement at the present time so infectious disease is consulted. Review of Systems ROS Limitations: Poor Historian Constitutional: DENIES: Diaphoretic episodes, Fatigue, Fever, Weight gain, Weight loss, Chills, Dizziness, Change in appetite, Night Sweats Endocrine: DENIES: Heat/cold intolerance, Polydipsia, Polyuria, Polyphagia Eyes: DENIES: Blurred vision, Diplopia, Eye inflammation, Eye pain, Vision loss , Photosensitivity, Double Vision Ears, nose, mouth, throat: COMPLAINS OF: Ear Pain, DENIES: Tinnitus, Hearing loss, Vertigo, Nasal discharge, Oral lesions, Throat pain, Hoarseness, Running Nose, Epistaxis, Sinus Pain, Toothache, Odynophagia Respiratory: DENIES: Apneas, Cough, Snoring, Wheezing, Hemoptysis, Sputum production, Shortness of breath Cardiovascular: DENIES: Chest pain, Palpitations, Syncope, Dyspnea on Exertion , PND, Lower Extremity Edema, Orthopnea, Claudication Gastrointestinal: DENIES: Abdominal pain, Black stools, Bloody stools, Constipation, Diarrhea, Nausea, Vomiting, Difficulty Swallowing, Anorexia Genitourinary: DENIES: Sexual dysfunction, Urinary frequency, Urinary incontinence, Urgency, Hematuria, Dysuria, Nocturia, Penile Discharge, Testicular Pain, Testicular Swelling Musculoskeletal: DENIES: Joint pain, Muscle aches, Stiffness, Joint Swelling, Back pain, Neck pain Integumentary: DENIES: Abnormal pigmentation, Nail changes, Pruritus, Rash Hematologic/lymphatic: DENIES: Bruising, Lymphadenopathy Immunologic/allergic: DENIES: Eczema, Urticaria Neurologic: DENIES: Abnormal gait, Headache, Localized weakness, Paresthesias, Seizures, Speech Problems, Tremor, Poor Balance Psychiatric: DENIES: Anxiety, Confusion, Mood changes, Depression, Hallucinations, Agitation, Suicidal Ideation, Homicidal Ideation, Delusions Except as stated in HPI: all other systems reviewed are Neg Past Family Social History Allergies: Coded Allergies: No Known Allergies (Verified Allergy, Unknown, 05/24/17) Past Medical History Morbid obesity Alcohol abuse Hypothyroidism Depression Chronic lower extremity edema MU Past Surgical History Gastric bypass Reported Medications Reported Meds & Active Scripts Active Reported Trazodone (Trazodone HCl) 100 Mg Tablet 100 Mg PO HS Nifedipine 20 Mg Cap 30 Mg PO DAILY Duloxetine DR (Duloxetine HCl) 60 Mg Capdr 60 Mg PO DAILY Potassium Chloride ER (Potassium Chloride) 20 Meq Tab 20 Meq PO BID Meloxicam 15 Mg Tab 15 Mg PO DAILY Levothyroxine (Levothyroxine Sodium) 50 Mcg Tab 50 Mcg PO DAILY Robafen Cough (Dextromethorphan HBr) 15 Mg Cap 10 Ml PO Q6H PRN Hydrocodone-Acetaminophen 5-325 mg Tab 2 Tab PO Q6H PRN Zofran (Ondansetron HCl) 4 Mg Tab 4 Mg PO Q6HR PRN Flexeril (Cyclobenzaprine HCl) 10 Mg Tab 10 Mg PO TID Penicillin V Potassium 500 Mg Tab 500 Mg PO Q6H Seroquel (Quetiapine Fumarate) 100 Mg Tab 100 Mg PO DAILY Wellbutrin Xl 24 HR (Bupropion HCl) 150 Mg Tab 150 Mg PO DAILY Active Ordered Medications Current Medications Medications (Trade) Dose Ordered Sig/Ezequiel Route Start Time Stop Time Status Last Admin (NS Flush) 2 ml UNSCH PRN IV FLUSH 06/24/17 23:30 (NS Flush) 2 ml BID IV FLUSH 06/25/17 09:00 06/26/17 08:53 (Tylenol) 650 mg Q4H PRN PO 06/24/17 23:30 06/25/17 03:35 (Zofran Inj) 4 mg Q6H PRN IVP 06/24/17 23:30 (Heparin Inj) 5,000 units Q8H SQ 06/25/17 06:00 06/26/17 12:07 (Narcan Inj) 0.4 mg UNSCH PRN IV PUSH 06/24/17 23:30 Clindamycin/ Sodium Chloride 50 ml @ 100 mls/hr Q6H IV 06/25/17 00:00 06/26/17 17:02 (Wellbutrin Sr) 150 mg DAILY PO 06/25/17 09:00 06/26/17 08:40 (Cymbalta Dr) 60 mg DAILY PO 06/25/17 09:00 06/26/17 08:40 (Synthroid) 50 mcg DAILY@0600 PO 06/25/17 06:00 06/26/17 05:55 (Procardia Xl) 30 mg DAILY PO 06/25/17 09:00 06/26/17 08:40 (SEROquel) 100 mg DAILY PO 06/25/17 09:00 06/26/17 08:40 (Desyrel) 100 mg HS PO 06/25/17 21:00 06/25/17 21:02 (Decadron Inj) 4 mg Q8HR IV PUSH 06/25/17 06:00 06/26/17 12:07 (Annona 5-325 Mg) 1 tab Q6H PRN PO 06/26/17 12:45 (Annona 7.5-325 Mg) 1 tab Q6H PRN PO 06/26/17 12:45 Ceftriaxone Sodium 2000 mg/ Sodium Chloride 100 ml @ 200 mls/hr Q24H IV 06/26/17 17:15 UNV (Magic Mouthwash Adult Liq) 10 ml QID SWISH-SWAL 06/26/17 18:00 UNV Family History Reviewed and noncontributory to current infectious disease problem. Social History Reports drinking one to trough line daily denies any smoking denies any intravenous drug abuse. Physical Exam Vital Signs Vital Signs Date Time Temp Pulse Resp B/P (MAP) Pulse Ox O2 Delivery O2 Flow Rate FiO2 06/26/17 16:00 96.1 99 16 131/83 (99) 94 06/26/17 12:00 96.0 111 17 120/85 (97) 94 06/26/17 08:00 97.3 104 16 128/84 (99) 94 06/26/17 00:00 96.3 112 20 135/86 (102) 94 06/25/17 20:00 96.5 110 20 134/89 (104) 95 Physical Exam GENERAL: This is a well-nourished, well-developed patient, in no apparent distress. SKIN: No rashes, ecchymoses or lesions. Cool and dry. HEAD: Atraumatic. Normocephalic. No temporal or scalp tenderness. EYES: Pupils equal round and reactive. Extraocular motions intact. No scleral icterus. No injection or drainage. ENT: Nose without bleeding, purulent drainage or septal hematoma. Throat without erythema, tonsillar hypertrophy or exudate. Uvula midline. Airway patent. NECK: Trachea midline. Supple, nontender, no meningeal signs. Left side swelling extending from anterior to the left tragus of the year down to the mandible sparing the posterior aspect of the ear. Left neck submandibular lymph nodes palpable and tender. CARDIOVASCULAR: Heart sounds audible but distant. RESPIRATORY: Clear to auscultation. Breath sounds equal bilaterally. No wheezes , rales, or rhonchi. GASTROINTESTINAL: Abdomen soft, non-tender, nondistended. Obese. MUSCULOSKELETAL: Extremities without clubbing, cyanosis, or edema. NEUROLOGICAL: Awake and alert. Nonfocal exam Psych cooperative IV line sites with no evidence of infection. Laboratory Laboratory Tests Test 06/26/17 07:06 White Blood Count 20.3 Red Blood Count 4.34 Hemoglobin 13.9 Hematocrit 41.5 Mean Corpuscular Volume 95.7 Mean Corpuscular Hemoglobin 32.0 Mean Corpuscular Hemoglobin Concent 33.5 Red Cell Distribution Width 18.1 Platelet Count 402 Mean Platelet Volume 7.2 Neutrophils (%) (Auto) 94.5 Lymphocytes (%) (Auto) 1.4 Monocytes (%) (Auto) 4.1 Eosinophils (%) (Auto) 0.0 Basophils (%) (Auto) 0.0 Neutrophils # (Auto) 19.2 Lymphocytes # (Auto) 0.3 Monocytes # (Auto) 0.8 Eosinophils # (Auto) 0.0 Basophils # (Auto) 0.0 CBC Comment DIFF FINAL Differential Comment Date/Time Source Procedure Growth Status 06/24/17 21:20 Blood Peripheral Aerobic Blood Culture - Preliminary NO GROWTH IN 2 DAYS Resulted 06/24/17 21:20 Blood Peripheral Anaerobic Blood Culture - Preliminary NO GROWTH IN 2 DAYS Resulted Result Diagram: 06/26/17 0706 06/25/17 0456 Imaging Last Impressions Maxillofacial CT 06/24/17 0000 Signed Impressions: Service Date/Time: June 20:55 - CONCLUSION: CT findings consistent with acute left parotitis, nonspecific but most likely infectious. No obstructing stone seen. Milder inflammatory changes are seen of the left submandibular gland as well. Associated overlying subcutaneous edema/swelling and mild, presumably reactive jugulodigastric lymphadenopathy. No mass or drainable fluid collection. Kenrick Laboy MD Assessment and Plan Assessment and Plan Acute likely infectious parotitis. Possible alcohol and oral hygiene related parotitis. Poor dental hygiene with caries of teeth, periodontitis. Morbid Obesity possibly mouth breathes Ear pain likely referred from parotitis. Recs: Continue clindamycin IV Start ceftriaxone IV Continue steroids per hospitalist Check mumps serology Consult ENT Discussed with and patient, RN the plan for the day. Follow cultures follow clinically. Margaret Thurston MD Jun 26, 2017 17:11
[2017-06-26] MEDS: NYSTAT/DIPHENHY/LIDO MOUTHWASH (Adult) 120ML SWISH-SWAL SCH ×2 (18:13→20:34)
[2017-06-26] MEDS: PILOCARPINE HCL 5 MG TAB PO SCH (18:14)
[2017-06-26 20:00] VITALS: BP 133/77; PULSE 101; RESP 18; TEMP 96.5; O2SAT 94
[2017-06-26] MEDS: cefTRIAXone INJ 2,000 MG in SODIUM CHLORIDE 0.9% INJ 100 ML IV SCH (20:28)
[2017-06-26] MEDS: traZODone HCL 100 MG TAB PO SCH (20:33)
[2017-06-26] MEDS ORDERED: RESP: ALBUTEROL 2.5 MG/IPRATROPIUM 0.5 MG NEB (PRN) NEB (21:00)
[2017-06-26] MEDS: BENZONATATE 100 MG CAP PO PRN (21:28)
[2017-06-27] VITALS: BP 138/86; PULSE 92; RESP 18; TEMP 97.1; O2SAT 94
[2017-06-27] MEDS: CLINDAMYCIN 600 MG/NS PREMIX 50 ML IV SCH ×5 (00:12→23:23)
[2017-06-27] MEDS: LEVOTHYROXINE SODIUM 50 MCG TAB PO SCH (05:56)
[2017-06-27] MEDS: HEPARIN SODIUM - SQ 10,000 UNITS/ML VIAL SQ SCH ×3 (05:56→22:05)
[2017-06-27] MEDS: DEXAMETHASONE SOD PHOS 4 MG/ML VIAL IV PUSH SCH ×3 (05:56→22:04)
[2017-06-27 06:12] LABS: AUTOMATED NEUTROPHIL # 13.1 TH/MM3 (1.8-7.7); HEMATOCRIT 38.7 % (39.0-51.0); HEMOGLOBIN 12.8 GM/DL (13.0-17.0); LYMPH % 2.3 % (9.0-44.0); LYMPHOCYTE # 0.3 TH/MM3 (1.0-4.8); MEAN CELL VOLUME 96.1 FL (80.0-100.0); MEAN CORPUSCULAR HEMOGLOBIN 31.8 PG (27.0-34.0); MEAN CORPUSCULAR HGB CONC 33.1 % (32.0-36.0); MEAN PLATELET VOLUME 7.1 FL (7.0-11.0); MONO % 3.6 % (0.0-8.0); MONOCYTE # 0.5 TH/MM3 (0-0.9); NEUT % 94.1 % (16.0-70.0); PLATELET COUNT 330 TH/MM3 (150-450); RED BLOOD COUNT 4.02 MIL/MM3 (4.50-5.90); RED CELL DISTRIBUTION WIDTH 18.9 % (11.6-17.2)
[2017-06-27 08:00] VITALS: BP 131/90; PULSE 112; RESP 16; TEMP 98.3; O2SAT 92
[2017-06-27] MEDS: PILOCARPINE HCL 5 MG TAB PO SCH ×3 (08:24→17:04)
[2017-06-27] MEDS: SODIUM CHLORIDE 0.9% FLUSH 10 ML FLUSH IV FLUSH SCH ×2 (08:24→20:19)
[2017-06-27] MEDS: buPROPion HCL 150 MG SUSTAINED RELEASE TAB PO SCH (08:24)
[2017-06-27] MEDS: QUEtiapine FUMARATE 100 MG TAB PO SCH (08:24)
[2017-06-27] MEDS: DULoxetine HCl DR 60 MG CAP PO SCH (08:24)
[2017-06-27] MEDS: NIFEdipine 30 MG SUSTAINED RELEASE TAB PO SCH (08:24)
[2017-06-27] MEDS: NYSTAT/DIPHENHY/LIDO MOUTHWASH (Adult) 120ML SWISH-SWAL SCH ×4 (08:24→20:20)
[2017-06-27] MEDS: ACETAMINOPHEN/HYDROcodone 325 MG/7.5 MG TAB PO PRN ×2 (08:30→20:20)
[2017-06-27 12:00] VITALS: BP 125/83; PULSE 102; RESP 17; TEMP 95.3; O2SAT 92
[2017-06-27] MEDS: BENZONATATE 100 MG CAP PO PRN ×2 (15:42→20:27)
[2017-06-27 16:00] VITALS: BP 142/74; PULSE 87; RESP 16; TEMP 96.4; O2SAT 95
--- NOTE | 2017-06-27 16:13 | HHI.PR ---
Subjective Remarks Follow-up parotitis, leukocytosis. Patient states that the left side of his face and neck is less tender today. Complaining of cough. Denies dyspnea, chest pain. Objective Vitals Vital Signs Date Time Temp Pulse Resp B/P (MAP) Pulse Ox O2 Delivery O2 Flow Rate FiO2 06/27/17 12:00 95.3 102 17 125/83 (97) 92 06/27/17 08:00 98.3 112 16 131/90 (104) 92 06/27/17 00:00 97.1 92 18 138/86 (103) 94 06/26/17 20:00 96.5 101 18 133/77 (95) 94 I/O 06/26/17 06/26/17 06/26/17 06/27/17 06/27/17 06/27/17 07:00 15:00 23:00 07:00 15:00 23:00 Intake Total 460 ml 50 ml 220 ml 460 ml Balance 460 ml 50 ml 220 ml 460 ml Intake Oral 360 ml 120 ml 360 ml IV Total 100 ml 50 ml 100 ml 100 ml # Voids 1 1 1 # Bowel Movements 0 1 1 Result Diagram: 06/27/17 0525 06/25/17 0456 Imaging Last Impressions Maxillofacial CT 06/24/17 0000 Signed Impressions: Service Date/Time: June 20:55 - CONCLUSION: CT findings consistent with acute left parotitis, nonspecific but most likely infectious. No obstructing stone seen. Milder inflammatory changes are seen of the left submandibular gland as well. Associated overlying subcutaneous edema/swelling and mild, presumably reactive jugulodigastric lymphadenopathy. No mass or drainable fluid collection. Kenrick Laboy MD Objective Remarks General: Obese male in no acute distress. Heart: Regular rate and rhythm. No murmur. Lungs: Clear to auscultation bilaterally. No wheezes, rales, or rhonchi. Breathing is nonlabored. Abdomen: Soft, nontender, nondistended. Extremities: 2+ bilateral lower extremity edema. Chronic venous stasis changes bilaterally. Psych: Alert and oriented. Skin: There is swelling over the left mandible. Erythema has resolved. There is no open wound or drainage. No fluctuance is noted. Procedures None Urinary Catheter: No Vascular Central Line Catheter: No A/P Assessment and Plan 1. Parotitis: Maxillofacial CT consistent with acute left parotitis without mass or drainable fluid collection. Continue antibiotics, Decadron. Continue pain control. Improving. 2. Hypertension: Continue home medications. 3. Morbid obesity: Counseled on weight reduction. Heart healthy diet. 4. Hypothyroidism: Continue Synthroid. 5. Alcohol abuse: Patient counseled. [facility] protocol. 6. Sepsis: Secondary to parotitis. Patient has leukocytosis, tachycardia. Continue antibiotics. Blood cultures are negative so far. Appreciate infectious disease and ENT recommendations. 7. DVT prophylaxis: Heparin. Discussed with Dr. Simmons and Dr. Thurston. Discharge Planning Possible discharge home soon pending infectious disease and ENT clearance. Mikal Miller MD Jun 27, 2017 16:13
[2017-06-27] MEDS: cefTRIAXone INJ 2,000 MG in SODIUM CHLORIDE 0.9% INJ 100 ML IV SCH (20:19)
[2017-06-27] MEDS: traZODone HCL 100 MG TAB PO SCH (20:20)
[2017-06-27 20:41] VITALS: BP 147/89; PULSE 90; RESP 22; TEMP 97.1; O2SAT 93
[2017-06-27] MEDS: MELATONIN 5 MG TAB PO PRN (23:23)
[2017-06-28 00:52] VITALS: BP 151/84; PULSE 78; RESP 20; TEMP 97.5; O2SAT 90
[2017-06-28] MEDS: HEPARIN SODIUM - SQ 10,000 UNITS/ML VIAL SQ SCH ×3 (04:54→20:09)
[2017-06-28] MEDS: ACETAMINOPHEN/HYDROcodone 325 MG/7.5 MG TAB PO PRN ×2 (04:54→20:10)
[2017-06-28] MEDS: LEVOTHYROXINE SODIUM 50 MCG TAB PO SCH (04:54)
[2017-06-28] MEDS: CLINDAMYCIN 600 MG/NS PREMIX 50 ML IV SCH ×3 (04:55→16:30)
[2017-06-28] MEDS: DEXAMETHASONE SOD PHOS 4 MG/ML VIAL IV PUSH SCH ×3 (04:55→20:10)
[2017-06-28 08:00] VITALS: BP 142/92; PULSE 78; RESP 19; TEMP 96.7; O2SAT 92
[2017-06-28] MEDS: PILOCARPINE HCL 5 MG TAB PO SCH ×3 (08:30→16:31)
[2017-06-28] MEDS: NIFEdipine 30 MG SUSTAINED RELEASE TAB PO SCH (08:30)
[2017-06-28] MEDS: buPROPion HCL 150 MG SUSTAINED RELEASE TAB PO SCH (08:30)
[2017-06-28] MEDS: QUEtiapine FUMARATE 100 MG TAB PO SCH (08:30)
[2017-06-28] MEDS: DULoxetine HCl DR 60 MG CAP PO SCH (08:30)
[2017-06-28] MEDS: NYSTAT/DIPHENHY/LIDO MOUTHWASH (Adult) 120ML SWISH-SWAL SCH ×4 (08:31→20:10)
[2017-06-28] MEDS: SODIUM CHLORIDE 0.9% FLUSH 10 ML FLUSH IV FLUSH SCH ×2 (08:31→20:11)
--- NOTE | 2017-06-28 11:22 | HHI.PR ---
Subjective Remarks Follow up parotitis. No complaints at this time. Pain is improving. Objective Vitals Vital Signs Date Time Temp Pulse Resp B/P (MAP) Pulse Ox O2 Delivery O2 Flow Rate FiO2 06/28/17 08:00 96.7 78 19 142/92 (109) 92 06/28/17 00:52 97.5 78 20 151/84 (106) 90 06/27/17 20:41 97.1 90 22 147/89 (108) 93 06/27/17 16:00 96.4 87 16 142/74 (96) 95 06/27/17 12:00 95.3 102 17 125/83 (97) 92 I/O 06/27/17 06/27/17 06/27/17 06/28/17 06/28/17 06/28/17 07:00 15:00 23:00 07:00 15:00 23:00 Intake Total 460 ml 580 ml 340 ml Balance 460 ml 580 ml 340 ml Intake Oral 360 ml 480 ml 240 ml IV Total 100 ml 100 ml 100 ml # Voids 1 1 4 # Bowel Movements 1 1 1 Result Diagram: 06/27/17 0525 06/25/17 0456 Imaging Last Impressions Maxillofacial CT 06/24/17 0000 Signed Impressions: Service Date/Time: June 20:55 - CONCLUSION: CT findings consistent with acute left parotitis, nonspecific but most likely infectious. No obstructing stone seen. Milder inflammatory changes are seen of the left submandibular gland as well. Associated overlying subcutaneous edema/swelling and mild, presumably reactive jugulodigastric lymphadenopathy. No mass or drainable fluid collection. Kenrick Laboy MD Objective Remarks General: Obese male in no acute distress. Heart: Regular rate and rhythm. No murmur. Lungs: Clear to auscultation bilaterally. No wheezes, rales, or rhonchi. Breathing is nonlabored. Abdomen: Soft, nontender, nondistended. Extremities: 2+ bilateral lower extremity edema. Chronic venous stasis changes bilaterally. Psych: Alert and oriented. Skin: There is swelling over the left mandible. Erythema has resolved. There is no open wound or drainage. No fluctuance is noted. Procedures None Urinary Catheter: No Vascular Central Line Catheter: No A/P Assessment and Plan 1. Parotitis: Maxillofacial CT consistent with acute left parotitis without mass or drainable fluid collection. Continue antibiotics, Decadron, pilocarpine. Continue pain control. Improving. 2. Hypertension: Continue home medications. 3. Morbid obesity: Counseled on weight reduction. Heart healthy diet. 4. Hypothyroidism: Continue Synthroid. 5. Alcohol abuse: Patient counseled. [facility] protocol. 6. Sepsis: Resolved. Secondary to parotitis. Patient has leukocytosis, tachycardia. Continue antibiotics. Blood cultures are negative so far. Appreciate infectious disease and ENT recommendations. 7. DVT prophylaxis: Heparin. Discharge Planning Discharge back to SNF when cleared by infectious disease and ENT. Mikal Miller MD Jun 28, 2017 11:22
[2017-06-28 12:00] VITALS: BP 128/86; PULSE 109; RESP 17; TEMP 96.1; O2SAT 96
[2017-06-28 16:00] VITALS: BP 131/84; PULSE 91; RESP 16; TEMP 96; O2SAT 94
--- NOTE | 2017-06-28 16:46 | HHI.IDPN ---
Subjective Subjective Remarks Mr. Lazaro is a 61 year old male with past medical history significant for morbid obesity, alcohol abuse up to 1 L of wine per day reportedly, hypertension, hypothyroidism, depression. With this background patient presents to the emergency department complaining of left-sided facial weakness at least 3 days prior to admission. He was getting larger in size and exquisitely painful so he decided to come to the emergency department. Patient reports that he's unable to completely open his mouth and has pain radiating to his left ear. He denies any ear discharge. Denies any tinnitus. Patient reports he had bad teeth that need to be taken out. He denies any trauma to the area. He does not know his mom status. He denies any other systemic symptoms. Upon admission patient was started on clindamycin IV blood cultures have been done which are negative. Patient has received steroids as well as antibiotics and has not shown any remarkable improvement at the present time so infectious disease is consulted. Overnight events reviewed. No fever No rash No diarrhea Left parotid swelling erythema significantly reduced. Antibiotics Ceftriaxone IV Clinda IV Lines Line sites with no e.o infection Past Medical History reviewed Allergies: Coded Allergies: No Known Allergies (Verified Allergy, Unknown, 05/24/17) Objective . Vital Signs Date Time Temp Pulse Resp B/P (MAP) Pulse Ox O2 Delivery O2 Flow Rate FiO2 06/28/17 12:00 96.1 109 17 128/86 (100) 96 06/28/17 08:00 96.7 78 19 142/92 (109) 92 06/28/17 00:52 97.5 78 20 151/84 (106) 90 06/27/17 20:41 97.1 90 22 147/89 (108) 93 . Laboratory Tests Test 06/27/17 05:25 White Blood Count 14.0 TH/MM3 Red Blood Count 4.02 MIL/MM3 Hemoglobin 12.8 GM/DL Hematocrit 38.7 % Mean Corpuscular Volume 96.1 FL Mean Corpuscular Hemoglobin 31.8 PG Mean Corpuscular Hemoglobin Concent 33.1 % Red Cell Distribution Width 18.9 % Platelet Count 330 TH/MM3 Mean Platelet Volume 7.1 FL Neutrophils (%) (Auto) 94.1 % Lymphocytes (%) (Auto) 2.3 % Monocytes (%) (Auto) 3.6 % Eosinophils (%) (Auto) 0.0 % Basophils (%) (Auto) 0.0 % Neutrophils # (Auto) 13.1 TH/MM3 Lymphocytes # (Auto) 0.3 TH/MM3 Monocytes # (Auto) 0.5 TH/MM3 Eosinophils # (Auto) 0.0 TH/MM3 Basophils # (Auto) 0.0 TH/MM3 CBC Comment DIFF FINAL Differential Comment Imaging Last Impressions Maxillofacial CT 06/24/17 0000 Signed Impressions: Service Date/Time: June 20:55 - CONCLUSION: CT findings consistent with acute left parotitis, nonspecific but most likely infectious. No obstructing stone seen. Milder inflammatory changes are seen of the left submandibular gland as well. Associated overlying subcutaneous edema/swelling and mild, presumably reactive jugulodigastric lymphadenopathy. No mass or drainable fluid collection. Kenrick Laboy MD Physical Exam GENERAL: This is a well-nourished, well-developed patient, in no apparent distress. SKIN: No rashes, ecchymoses or lesions. Cool and dry. HEAD: Atraumatic. Normocephalic. No temporal or scalp tenderness. EYES: Pupils equal round and reactive. Extraocular motions intact. No scleral icterus. No injection or drainage. ENT: Nose without bleeding, purulent drainage or septal hematoma. Throat without erythema, tonsillar hypertrophy or exudate. Uvula midline. Airway patent. NECK: Trachea midline. Supple, nontender, no meningeal signs. Left side swelling extending from anterior to the left tragus of the year down to the mandible sparing the posterior aspect of the ear. Left neck submandibular lymph nodes palpable and tender. 75% improved compared to first visit. CARDIOVASCULAR: Heart sounds audible but distant. RESPIRATORY: Clear to auscultation. Breath sounds equal bilaterally. No wheezes , rales, or rhonchi. GASTROINTESTINAL: Abdomen soft, non-tender, nondistended. Obese. MUSCULOSKELETAL: Extremities without clubbing, cyanosis, or edema. NEUROLOGICAL: Awake and alert. Nonfocal exam Psych cooperative IV line sites with no evidence of infection. Assessment & Plan Remarks Acute likely infectious parotitis. Possible alcohol and oral hygiene related parotitis. Poor dental hygiene with caries of teeth, periodontitis. Morbid Obesity possibly mouth breathes Ear pain likely referred from parotitis. Recs: Continue clindamycin IV Continue ceftriaxone IV Continue steroids per hospitalist Check mumps serology Consult ENT Discussed with : When ready for discharge ok to switch to oral clinda for 7 more days, continue pilocarpin, taper steroids. Will sign off please call back if any change in clinical condition or questions. Margaret Thurston MD Jun 28, 2017 16:45
[2017-06-28 20:00] VITALS: BP 122/80; PULSE 90; RESP 16; TEMP 96.9; O2SAT 93
[2017-06-28] MEDS: traZODone HCL 100 MG TAB PO SCH (20:09)
[2017-06-28] MEDS: cefTRIAXone INJ 2,000 MG in SODIUM CHLORIDE 0.9% INJ 100 ML IV SCH (20:10)
[2017-06-28] MEDS ORDERED: CALCIUM CARBONATE 500 MG CHEWABLE TAB CHEW ONE (20:30)
[2017-06-29] VITALS: BP 120/65; PULSE 89; RESP 16; TEMP 97.1; O2SAT 94
[2017-06-29] MEDS: CLINDAMYCIN 600 MG/NS PREMIX 50 ML IV SCH ×3 (00:17→11:41)
[2017-06-29] MEDS: MELATONIN 5 MG TAB PO PRN (00:17)
[2017-06-29] MEDS: ACETAMINOPHEN/HYDROcodone 325 MG/7.5 MG TAB PO PRN ×3 (02:06→15:11)
[2017-06-29] MEDS: HEPARIN SODIUM - SQ 10,000 UNITS/ML VIAL SQ SCH (05:27)
[2017-06-29] MEDS: DEXAMETHASONE SOD PHOS 4 MG/ML VIAL IV PUSH SCH (05:27)
[2017-06-29] MEDS: LEVOTHYROXINE SODIUM 50 MCG TAB PO SCH (05:27)
[2017-06-29 07:27] LABS: AUTOMATED NEUTROPHIL # 5.1 TH/MM3 (1.8-7.7); BASOPHIL % 0.1 % (0.0-2.0); EOSINOPHIL % 0.1 % (0.0-4.0); HEMATOCRIT 37.9 % (39.0-51.0); HEMOGLOBIN 12.9 GM/DL (13.0-17.0); LYMPH % 8.1 % (9.0-44.0); LYMPHOCYTE # 0.5 TH/MM3 (1.0-4.8); MEAN CELL VOLUME 95.8 FL (80.0-100.0); MEAN CORPUSCULAR HEMOGLOBIN 32.5 PG (27.0-34.0); MEAN PLATELET VOLUME 6.7 FL (7.0-11.0); MONO % 11.2 % (0.0-8.0); MONOCYTE # 0.7 TH/MM3 (0-0.9); NEUT % 80.5 % (16.0-70.0); PLATELET COUNT 278 TH/MM3 (150-450); RED BLOOD COUNT 3.95 MIL/MM3 (4.50-5.90); RED CELL DISTRIBUTION WIDTH 17.9 % (11.6-17.2); WHITE BLOOD COUNT 6.4 TH/MM3 (4.0-11.0)
[2017-06-29 08:00] VITALS: BP 155/97; PULSE 94; RESP 19; TEMP 96.7; O2SAT 94
[2017-06-29] MEDS: NYSTAT/DIPHENHY/LIDO MOUTHWASH (Adult) 120ML SWISH-SWAL SCH ×2 (08:26→13:00)
[2017-06-29] MEDS: buPROPion HCL 150 MG SUSTAINED RELEASE TAB PO SCH (08:26)
[2017-06-29] MEDS: QUEtiapine FUMARATE 100 MG TAB PO SCH (08:26)
[2017-06-29] MEDS: DULoxetine HCl DR 60 MG CAP PO SCH (08:26)
[2017-06-29] MEDS: SODIUM CHLORIDE 0.9% FLUSH 10 ML FLUSH IV FLUSH SCH (08:26)
[2017-06-29] MEDS: NIFEdipine 30 MG SUSTAINED RELEASE TAB PO SCH (08:26)
[2017-06-29] MEDS: PILOCARPINE HCL 5 MG TAB PO SCH ×2 (08:26→11:41)
[2017-06-29 12:00] VITALS: BP 133/61; PULSE 78; RESP 17; TEMP 96.4; O2SAT 94
[2017-06-29] MEDS ORDERED: CLIN300C5 PO (15:04)
[2017-06-29] MEDS ORDERED: PILO5 PO (15:04)
[2017-06-29] MEDS ORDERED: PRED20 PO (15:04)
[2017-06-29] MEDS ORDERED: HYDR-3516 PO (15:04)
--- NOTE | 2017-06-29 15:05 | HHI.DCPOC ---
Discharge Care Plan Diagnosis: (1) Sepsis (2) Parotitis (3) General weakness Goals to Promote Your Health * To prevent worsening of your condition and complications * To maintain your health at the optimal level Directions to Meet Your Goals Take your medications as prescribed Follow your dietary instruction Follow activity as directed Keep your appointments as scheduled Take your immunizations and boosters as scheduled If your symptoms worsen call your PCP, if no PCP go to Urgent Care Center or Emergency Room Smoking is Dangerous to Your Health. Avoid second hand smoke Call the 24-hour hour crisis hotline for domestic abuse at Santo Aguayo DO Jun 29, 2017 15:05
--- NOTE | 2017-06-29 15:18 | HHI.DS ---
Discharge Summary Admission Date Jun 24, 2017 at 21:59 Discharge Date: Jun 29, 2017 Admitting Diagnosis sepsis; parotitis (1) General weakness ICD Code: R53.1 - Weakness Status: Acute (2) Sepsis ICD Code: A41.9 - Sepsis, unspecified organism Diagnosis: Principal Status: Acute (3) Parotitis ICD Code: K11.20 - Sialoadenitis, unspecified Diagnosis: Principal Status: Acute Procedures None Brief History - From Admission 61-year-old male with a past medical history significant for morbid obesity, hypertension, hypothyroidism, depression and alcohol abuse presents the emergency department with chief complaint of left-sided facial swelling. The patient reports that the swelling began yesterday. He states that it is getting larger in size and exquisitely painful. Patient complains that he is unable to fully open his mouth and has pain that radiates to his left ear. He denies any trauma. Negative fever/chills. Chest pain/shortness of breath. Denies nausea/vomiting/diarrhea. CBC/BMP: 06/29/17 0630 06/25/17 0456 Significant Findings Laboratory Tests Test 06/27/17 05:25 06/29/17 06:30 White Blood Count 14.0 TH/MM3 (4.0-11.0) Red Blood Count 4.02 MIL/MM3 (4.50-5.90) 3.95 MIL/MM3 (4.50-5.90) Hemoglobin 12.8 GM/DL (13.0-17.0) 12.9 GM/DL (13.0-17.0) Hematocrit 38.7 % (39.0-51.0) 37.9 % (39.0-51.0) Red Cell Distribution Width 18.9 % (11.6-17.2) 17.9 % (11.6-17.2) Neutrophils (%) (Auto) 94.1 % (16.0-70.0) 80.5 % (16.0-70.0) Lymphocytes (%) (Auto) 2.3 % (9.0-44.0) 8.1 % (9.0-44.0) Neutrophils # (Auto) 13.1 TH/MM3 (1.8-7.7) Lymphocytes # (Auto) 0.3 TH/MM3 (1.0-4.8) 0.5 TH/MM3 (1.0-4.8) Mean Platelet Volume 6.7 FL (7.0-11.0) Monocytes (%) (Auto) 11.2 % (0.0-8.0) Imaging Last Impressions Maxillofacial CT 06/24/17 0000 Signed Impressions: Service Date/Time: June 20:55 - CONCLUSION: CT findings consistent with acute left parotitis, nonspecific but most likely infectious. No obstructing stone seen. Milder inflammatory changes are seen of the left submandibular gland as well. Associated overlying subcutaneous edema/swelling and mild, presumably reactive jugulodigastric lymphadenopathy. No mass or drainable fluid collection. Kenrick Laboy MD PE at Discharge General: Obese male in no acute distress. Heart: Regular rate and rhythm. No murmur. Lungs: Clear to auscultation bilaterally. No wheezes, rales, or rhonchi. Breathing is nonlabored. Abdomen: Soft, nontender, nondistended. Extremities: 2+ bilateral lower extremity edema. Chronic venous stasis changes bilaterally. Psych: Alert and oriented. Skin: There is swelling over the left mandible. Erythema has resolved. There is no open wound or drainage. No fluctuance is noted. Pt update on day of discharge The patient was resting in bed. He said that he was swallowing well. He was eating well. He was breathing well. He wanted to know how he got the infection. Discussed with nursing. Hospital Course Parotitis Maxillofacial CT: CT findings consistent with acute left parotitis, nonspecific but most likely infectious; No obstructing stone seen; Milder inflammatory changes are seen of the left submandibular gland as well; Associated overlying subcutaneous edema/swelling; and mild, presumably reactive jugulodigastric lymphadenopathy; No mass or drainable fluid collection. ENT and infectious disease were consulted. He was continued on antibiotics, Decadron, pilocarpine and pain control. He tolerated a diet well. He will complete a course of PO clindamycin and prednisone and will follow up with ENT as an outpt. Alcohol abuse The patient was counseled. He was placed on CIWA protocol. Pt Condition on Discharge: Stable Discharge Disposition: Discharge to SNF Discharge Time: > 30 minutes Discharge Instructions DIET: Follow Instructions for: As Tolerated, No Restrictions Activities you can perform: Weight Bearing as Abdiel Follow up Referrals: Ear Nose Throat - 1 Week PCP Follow-up - 1 Week New Medications: Clindamycin (Clindamycin) 300 Mg Cap 300 MG PO Q6H for Infection for 7 Days, #28 CAP 0 Refills Prednisone (Prednisone) 20 Mg Tab 20 MG PO DAILY for Swelling for 5 Days, #5 TAB 0 Refills Pilocarpine (Salagen) 5 Mg Tab 5 MG PO TID PRN for DRY MOUTH, #20 TAB Continued Medications: Bupropion HCl ER 24 HR (Wellbutrin Xl 24 HR) 150 Mg Tab 150 MG PO DAILY for Control Depression, TAB 0 Refills Dextromethorphan (Robafen Cough) 15 Mg Cap 10 ML PO Q6H PRN for COUGH, CAP [address] (Duloxetine DR) 60 Mg Capdr 60 MG PO DAILY, #30 CAP 0 Refills Hydrocodone-Acetaminophen (Hydrocodone-Acetaminophen) 5-325 mg Tab 2 TAB PO Q6H PRN for PAIN, #14 TAB 0 Refills (This prescription has been renewed ) Levothyroxine (Levothyroxine) 50 Mcg Tab 50 MCG PO DAILY for Thyroid, #30 TAB 0 Refills Meloxicam (Meloxicam) 15 Mg Tab 15 MG PO DAILY for Arthritis Pain, #30 TAB 0 Refills Nifedipine (Nifedipine) 20 Mg Cap 30 MG PO DAILY for Chest Pain, #120 CAP 0 Refills Ondansetron (Zofran) 4 Mg Tab 4 MG PO Q6HR PRN for NAUSEA OR VOMITING, TAB 0 Refills Potassium Chloride ER (Potassium Chloride ER) 20 Meq Tab 20 MEQ PO BID for Electrolyte Replacement, #60 TAB 0 Refills Quetiapine (Seroquel) 100 Mg Tab 100 MG PO DAILY, #30 TAB 0 Refills Trazodone (Trazodone) 100 Mg Tablet 100 MG PO HS for Control Depression, #30 TAB 0 Refills Discontinued Medications: Cyclobenzaprine (Flexeril) 10 Mg Tab 10 MG PO TID for Muscle Spasm, #90 TAB 0 Refills Penicillin V Potassium (Penicillin V Potassium) 500 Mg Tab 500 MG PO Q6H for Infection, TAB 0 Refills Santo Aguayo DO Jun 29, 2017 15:18
[2017-06-29 16:00] VITALS: BP 131/84; PULSE 93; RESP 17; TEMP 95.8; O2SAT 93
== END 2017-06-29 18:31 | DRG 872 ==
LOC: NEPE 17:39 → NEDA 21:59 → N07B 23:43
PROVIDERS: ADMIT Hospitalist; ATTEND Hospitalist
DX: A41.9 Sepsis, unspecified organism (principal); Z68.42 Body mass index [BMI] 45.0-49.9, adult; I10 Essential (primary) hypertension; E66.01 Morbid (severe) obesity due to excess calories; K11.21 Acute sialoadenitis; E03.9 Hypothyroidism, unspecified; G47.33 Obstructive sleep apnea (adult) (pediatric); J44.9 Chronic obstructive pulmonary disease, unspecified; M19.90 Unspecified osteoarthritis, unspecified site; R60.0 Localized edema; K05.30 Chronic periodontitis, unspecified; K02.9 Dental caries, unspecified; R19.7 Diarrhea, unspecified; E78.00 Pure hypercholesterolemia, unspecified; F10.10 Alcohol abuse, uncomplicated; F32.9 Major depressive disorder, single episode, unspecified; F41.9 Anxiety disorder, unspecified; Z23 Encounter for immunization; Z87.891 Personal history of nicotine dependence; Z98.84 Bariatric surgery status
CPT/HCPCS: 70487; 80048; 80053; 83605; 85025; 85610; 85730; 86735; 87040; 90686; 96365; 96375; J0696; J1100; J1644; J1885; J2270; J2543; J3370; J7030; J7050; Q2038; Q9967

== ENCOUNTER 2017-12-23 19:52 | Inpatient (IN) ==
[2017-12-23] MEDS ORDERED: Famotidine PF Inj 20 MG/2 ML Vial IV.PUSH ONE (21:37)
--- NOTE | 2017-12-23 21:44 | ED ---
HPI General Chief Complaint: Nausea/Vomiting/Diarrhea Stated Complaint: Abdominal Issue Time Seen by Provider: 12/23/17 21:24 Source: patient Mode of arrival: EMS Limitations: no limitations History of Present Illness HPI narrative: 62-year-old male complains of abdominal distention and diarrhea. Patient states that he has history of chronic intermittent diarrhea for weeks. Patient started noticed abdominal distention today. Patient denies abdominal pain. Patient denies any nausea vomiting. Patient denies any fever chills. Patient states that he had history gastric bypass surgery 7 years ago. Patient has history hypertension, hypothyroidism, depression, hypokalemia, obesity, sleep apnea, anxiety, GERD. MD complaint: other Onset (ago): hour(s) Pain Consistency: constant Location: diffuse Severity: severe Severity scale (1-10): 8 Quality: fullness Radiation: none Migration to: no migration Relieving factors: nothing Exacerbating factors: nothing Associated symptoms: diarrhea Related Data Home Medications Medication Instructions Recorded Confirmed Lactobacillus acidophilus 460 mg PO DAILY 12/23/17 12/23/17 [Acidophilus] alum-mag hydroxide-simeth [Maalox 15 ml PO QID PRN 12/23/17 12/23/17 Advanced] [id number]-rozlmim bmb 12/23/17 [Evan] bupropion HCl 150 mg PO QAM 12/23/17 12/23/17 docusate sodium [Colace] 100 mg PO BID 12/23/17 12/23/17 duloxetine 60 mg PO DAILY 12/23/17 12/23/17 furosemide [Lasix] 20 mg PO BID 12/23/17 12/23/17 gabapentin 300 mg PO TID 12/23/17 12/23/17 hydrocodone-acetaminophen [[place]] 1 tab PO Q6H PRN 12/23/17 12/23/17 levothyroxine 50 mcg PO DAILY 12/23/17 12/23/17 magnesium citrate 60 ml PO DAILY PRN 12/23/17 12/23/17 magnesium hydroxide [Milk of 15 ml PO DAILY PRN 12/23/17 12/23/17 Magnesia] meloxicam 15 mg PO DAILY 12/23/17 12/23/17 methylcellulose (with sugar) 1.5 tbsp PO DAILY 12/23/17 12/23/17 [Citrucel (sucrose)] nifedipine 30 mg PO DAILY 12/23/17 12/23/17 omeprazole 20 mg PO DAILY 12/23/17 12/23/17 ondansetron 4 mg PO TID PRN 12/23/17 12/23/17 potassium chloride 20 meq PO BID 12/23/17 12/23/17 quetiapine 100 mg PO HS 12/23/17 12/23/17 sodium phosphates [Fleet Enema] 59 ml SC DAILY PRN 12/23/17 12/23/17 spironolactone [Aldactone] 25 mg PO DAILY 12/23/17 12/23/17 trazodone 100 mg PO DAILY 12/23/17 12/23/17 Allergies Allergy/AdvReac Type Severity Reaction Status Date / Time No Known Allergies Allergy Unknown Uncoded 05/24/17 15:12 Review of Systems ROS: all other systems reviewed are negative [facility] Medical History Medical History Allergy (Acute) Anxiety (Acute) Cough (Acute) Dry beriberi (Acute) Edema (Acute) GERD (gastroesophageal reflux disease) (Acute) History of fall (Acute) Hypertension (Acute) Hypokalemia (Acute) Hyponatremia (Acute) Hypothyroid (Acute) Insomnia (Acute) Major depressive disorder (Acute) Muscle spasm (Acute) Muscle weakness (Acute) Nausea & vomiting (Acute) Obesity (Acute) Obstructive sleep apnea (Acute) Pain (Acute) Skin disorder (Acute) Vitamin B deficiency (Acute) Social History Social History Substance History: No History of Abuse Smoking Status: Unknown if ever smoked How Often Do You Have a Drink Containing Alcohol: Never Recent Travel in [facility] within the Last 8 Weeks: No Recent Out of Country Travel within the Last 8 Weeks: No Immunization History Tetanus Immunization: Unsure Exam Narrative Exam Narrative: GENERAL: Well-nourished, well-developed patient. SKIN: Focused skin assessment warm/dry. HEAD: Normocephalic. EYES: No scleral icterus. No injection or drainage. NECK: Supple, trachea midline. No JVD or lymphadenopathy. CARDIOVASCULAR: Regular rate and rhythm without murmurs, gallops, or rubs. RESPIRATORY: Breath sounds equal bilaterally. No accessory muscle use. GASTROINTESTINAL: Abdomen distended. Nontender on palpation. Hypoactive bowel sounds. MUSCULOSKELETAL: No cyanosis, or edema. BACK: Nontender without obvious deformity. No CVA tenderness. Neurologic exam normal. Course Initial Documented Vital Signs Temperature 98.4 F 12/23/17 20:20 Pulse Rate 80 12/23/17 20:20 Respiratory Rate 16 12/23/17 20:20 Blood Pressure 144/76 H 12/23/17 20:20 Pulse Oximetry 99 12/23/17 20:20 Last Documented Vital Signs Temperature 98.4 F 12/23/17 20:20 Pulse Rate 80 12/23/17 20:20 Respiratory Rate 16 12/23/17 20:20 Blood Pressure 144/76 H 12/23/17 20:20 Pulse Oximetry 99 12/23/17 20:20 Medical Decision Making MDM Narrative Medical decision making narrative: 62-year-old male with abdominal distention. History of gastric bypass surgery in the past. I reviewed the patient's laboratory testing. His CAT scan shows a markedly dilated colon but no dilation of the small bowel. Patient has a inguinal hernia which may be complicating things. I discussed the case with Dr. Pena who is agreed to admit the patient. I have also discussed the case with Dr. Duarte who does not feel that this is a surgical process. He feels that this is a acute exacerbation of a chronic problem that he has had in the past. He has not recommended antibiotics at this time. He would like the patient to be n.p.o., IV fluids, pain medication, and a consult to him as well as GI. Patient is a wear of the recommendations and agrees with admission today. Differential Diagnosis Differential Diagnosis: Differential diagnosis including bowel obstruction, perforated bowel Lab Data Result diagrams: 12/23/17 22:05 12/23/17 22:05 Lab Results 12/23/17 12/23/17 12/23/17 Range/Units 22:05 22:05 22:05 WBC 6.3 (4.0-11.0) th/mm3 RBC 4.51 (4.50-5.90) mil/mm3 Hgb 13.4 (13.0-17.0) gm/dL Hct 39.7 (39.0-51.0) % MCV 87.9 (80.0-100.0) fL MCH 29.7 (27.0-34.0) pg MCHC 33.8 (32.0-36.0) % RDW 14.6 (11.6-17.2) % Plt Count 187 (150-450) th/mm3 MPV 7.5 (7.0-11.0) fL Neut % (Auto) 67.1 (16.0-70.0) % Lymph % (Auto) 15.8 (9.0-44.0) % [place] % (Auto) 10.0 H (0.0-8.0) % Eos % (Auto) 6.4 H (0.0-4.0) % Baso % (Auto) 0.7 (0.0-2.0) % Neut # (Auto) 4.2 (1.8-7.7) th/mm3 Lymph # (Auto) 1.0 (1.0-4.8) th/mm3 [place] # (Auto) 0.6 (0.0-0.9) th/mm3 Eos # (Auto) 0.4 (0.0-0.4) th/mm3 Baso # (Auto) 0.0 (0.0-0.2) th/mm3 WBC Differential . Differential Comment Auto diff final PT 12.2 H (9.8-11.6) sec INR 1.2 Ratio APTT 36.6 H (24.3-30.1) sec Sodium 140 (136-145) meq/L Potassium 4.0 (3.5-5.1) meq/L Chloride 109 H (98-107) meq/L Carbon Dioxide 27.1 (21.0-32.0) meq/L Anion Gap 4 L (5-15) meq/L BUN 29 H (7-18) mg/dL Creatinine 0.84 (0.60-1.30) mg/dL Estimated GFR Greater than 89 (>89) mL/min Random Glucose 86 (74-106) mg/dL Calcium 8.3 L (8.5-10.1) mg/dL Total Bilirubin 0.4 (0.2-1.0) mg/dL AST 15 (15-37) U/L ALT 12 (12-78) U/L Alkaline Phosphatase 95 (45-117) U/L Total Protein 7.0 (6.4-8.2) g/dL Albumin 2.9 L (3.4-5.0) g/dL Lipase 75 (73-393) U/L Blood Type Blood Type Recheck Antibody Screen 12/23/17 Range/Units 22:05 WBC (4.0-11.0) th/mm3 RBC (4.50-5.90) mil/mm3 Hgb (13.0-17.0) gm/dL Hct (39.0-51.0) % MCV (80.0-100.0) fL MCH (27.0-34.0) pg MCHC (32.0-36.0) % RDW (11.6-17.2) % Plt Count (150-450) th/mm3 MPV (7.0-11.0) fL Neut % (Auto) (16.0-70.0) % Lymph % (Auto) (9.0-44.0) % [place] % (Auto) (0.0-8.0) % Eos % (Auto) (0.0-4.0) % Baso % (Auto) (0.0-2.0) % Neut # (Auto) (1.8-7.7) th/mm3 Lymph # (Auto) (1.0-4.8) th/mm3 [place] # (Auto) (0.0-0.9) th/mm3 Eos # (Auto) (0.0-0.4) th/mm3 Baso # (Auto) (0.0-0.2) th/mm3 WBC Differential Differential Comment PT (9.8-11.6) sec INR Ratio APTT (24.3-30.1) sec Sodium (136-145) meq/L Potassium (3.5-5.1) meq/L Chloride (98-107) meq/L Carbon Dioxide (21.0-32.0) meq/L Anion Gap (5-15) meq/L BUN (7-18) mg/dL Creatinine (0.60-1.30) mg/dL Estimated GFR (>89) mL/min Random Glucose (74-106) mg/dL Calcium (8.5-10.1) mg/dL Total Bilirubin (0.2-1.0) mg/dL AST (15-37) U/L ALT (12-78) U/L Alkaline Phosphatase (45-117) U/L Total Protein (6.4-8.2) g/dL Albumin (3.4-5.0) g/dL Lipase (73-393) U/L Blood Type AB Positive Blood Type Recheck Required Antibody Screen Negative Imaging Data Radiologist's impression: Abdomen/Pelvis CT 12/24/17 00:00 CONCLUSION: 1. Abnormal severe dilatation of the cecum, ascending colon, transverse colon, and descending colon. A similar pattern was present on the study from June 2015, however, the colon is more severely distended on the current examination. There is also a left inguinal hernia containing a portion of the sigmoid colon which could be the cause or at least contributing to this finding. 2. No other acute finding is identified in the abdomen or pelvis. Discharge Plan Physicians Team ED Provider: Giovanni Long ED Midlevel Provider: Rashid Hollingsworth Primary Care Provider: UNKNOWN, Rxs /Orders / Referrals /Forms Prescriptions: No Action trazodone 100 mg Tablet 100 mg PO DAILY RF: 0 sodium phosphates [Fleet Enema] 19-7 gram/118 mL Enema 59 ml SC DAILY PRN (Reason: Constipation) RF: 0 omeprazole 20 mg Capsule,Delayed Release(Dr/Ec) 20 mg PO DAILY RF: 0 bupropion HCl 150 mg Tablet Extended Release 24 Hr 150 mg PO QAM RF: 0 duloxetine 60 mg Capsule,Delayed Release(Dr/Ec) 60 mg PO DAILY RF: 0 magnesium citrate Solution 60 ml PO DAILY PRN (Reason: Constipation) RF: 0 meloxicam 15 mg Tablet 15 mg PO DAILY RF: 0 nifedipine 30 mg Tablet Extended Release 30 mg PO DAILY RF: 0 magnesium hydroxide [Milk of Magnesia] 400 mg/5 mL Suspension 15 ml PO DAILY PRN (Reason: Constipation) RF: 0 levothyroxine 50 mcg Tablet 50 mcg PO DAILY RF: 0 docusate sodium [Colace] 100 mg Capsule 100 mg PO BID RF: 0 gabapentin 300 mg Capsule 300 mg PO TID RF: 0 alum-mag hydroxide-simeth [Maalox Advanced] 200-200-20 mg/5 mL Suspension 15 ml PO QID PRN (Reason: Constipation) RF: 0 Lactobacillus acidophilus [Acidophilus] Capsule 460 mg PO DAILY RF: 0 ondansetron 4 mg Tablet,Disintegrating 4 mg PO TID PRN (Reason: Nausea) RF: 0 methylcellulose (with sugar) [Citrucel (sucrose)] Powder 1.5 tbsp PO DAILY RF: 0 lchtbxlf-foqvqpkcx-qtqbgez bmb [Evan] 7-7-1.5 gram Powder In Packet RF: 0 potassium chloride 20 mEq Tablet Extended Release 20 meq PO BID RF: 0 hydrocodone-acetaminophen [[place]] 10-325 mg Tablet 1 tab PO Q6H PRN (Reason: Pain) RF: 0 quetiapine 100 mg Tablet 100 mg PO HS RF: 0 furosemide [Lasix] 20 mg Tablet 20 mg PO BID RF: 0 spironolactone [Aldactone] 25 mg Tablet 25 mg PO DAILY RF: 0 Status ED Status: With Doctor
[2017-12-23] MEDS ORDERED: Sod Chloride 0.9% Inj 1,000 ML IV.CONT SCH (21:45)
[2017-12-23 22:21] LABS: Baso % (Auto) 0.7 % (0.0-2.0); Eos # (Auto) 0.4 th/mm3 (0.0-0.4); Eos % (Auto) 6.4 % (0.0-4.0); Hematocrit 39.7 % (39.0-51.0); Hemoglobin 13.4 gm/dL (13.0-17.0); Lymph % (Auto) 15.8 % (9.0-44.0); Mean Corpuscular HGB Conc 33.8 % (32.0-36.0); Mean Corpuscular Hemoglobin 29.7 pg (27.0-34.0); Mean Corpuscular Volume 87.9 fL (80.0-100.0); Mean Platelet Volume 7.5 fL (7.0-11.0); Mono # (Auto) 0.6 th/mm3 (0.0-0.9); Neut # (Auto) 4.2 th/mm3 (1.8-7.7); Neut % (Auto) 67.1 % (16.0-70.0); Platelet Count 187 th/mm3 (150-450); Red Blood Count 4.51 mil/mm3 (4.50-5.90); Red Cell Distribution Width 14.6 % (11.6-17.2); White Blood Count 6.3 th/mm3 (4.0-11.0)
[2017-12-23 22:45] LABS: Albumin 2.9 g/dL (3.4-5.0); Anion Gap 4 meq/L (5-15); Aspartate Aminotransferase 15 U/L (15-37); Blood Urea Nitrogen 29 mg/dL (7-18); Calcium 8.3 mg/dL (8.5-10.1); Carbon Dioxide 27.1 meq/L (21.0-32.0); Chloride 109 meq/L (98-107); Glomerular Filtration Rate Greater Than 89 mL/min (>89); Glucose,Random 86 mg/dL (74-106); Lipase 75 U/L (73-393); Sodium 140 meq/L (136-145)
[2017-12-23 22:46] LABS: Alanine Aminotransferase 12 U/L (12-78)
[2017-12-23 22:49] LABS: Alkaline Phosphatase 95 U/L (45-117)
[2017-12-23] MEDS ORDERED: Diatrizoate Meglum/Diatrizoate Sod Liq 9 ML UDC PO ONE (22:55)
[2017-12-23 22:57] LABS: Activated Partial Thrombo Time 36.6 sec (24.3-30.1); INR 1.2 Ratio; Prothrombin Time 12.2 sec (9.8-11.6)
--- NOTE | 2017-12-24 01:53 | CT ---
EXAM DATE: 12/24/2017 12:53 AM EDT AGE/SEX: 62 years / Male INDICATIONS: Distention and diarrhea. CLINICAL DATA: This is the patient's initial encounter. Patient reports that signs and symptoms have been present for 1 day and indicates a pain score of 2/10. MEDICAL/SURGICAL HISTORY: Hypertension. Gastroesophageal reflux disease. . Gastric bypass. ORAL CONTRAST: Partial prescribed oral contrast ingested. RADIATION DOSE: 30.42 CTDI (mGy) ; Patient body habitus [place] [facility] [place]/O [place]AST[place]/07/2015. . TECHNIQUE: Multiple contiguous axial images were obtained through the abdomen and pelvis following b olus infusion of 95 ml Omnipaque 350 (iohexol) nonionic water-soluble contrast as a single exam dos e. Partial prescribed oral contrast ingested. Using automated exposure control and adjustment of the mA and/or kV according to patient size, radiation dose was kept as low as reasonably achievable to o btain optimal diagnostic quality images. DICOM format image data is available electronically for rev iew and comparison. FINDINGS: Lower chest: No acute abnormality is identified. Hepatobiliary: No focal liver lesion is identified. Hepatic vasculature demonstrates no abnormality. No calcified gallstones are present. Kidneys: No hydronephrosis, stone, or mass. Adrenal Glands: Within normal limits. Spleen: Within normal limits. Pancreas: Within normal limits. Vascular: The aorta is nonaneurysmal. There is moderate atherosclerotic disease. Bowel/Mesentery: There has been prior gastric surgery characteristic of Martín-en-Y gastrojejunostomy g astric bypass surgery. Small bowel demonstrates no abnormality. There is severe dilatation of the cec um, ascending colon, transverse colon, and descending colon. The transverse colon measures up to 15 c m. A portion of the distal descending colon extends into a left inguinal hernia. Distal sigmoid colon and rectum are normal in caliber. There is no free intraperitoneal air or fluid. Abdominal Wall: No hernia is visualized. Retroperitoneum: No lymphadenopathy. Bladder: No wall thickening or mass. Reproductive: Within normal limits. Inguinal: There are bilateral inguinal hernias that contain fat and a portion of the sigmoid colon o n the left. No lymphadenopathy is present. Musculoskeletal: No acute osseous abnormality is identified. There are degenerative changes of the yonatan mbar spine and hip joints. Left proximal femur hardware is present. CONCLUSION: 1. Abnormal severe dilatation of the cecum, ascending colon, transverse colon, and descending colon. A similar pattern was present on the study from June 2015, however, the colon is more severely d istended on the current examination. There is also a left inguinal hernia containing a portion of the sigmoid colon which could be the cause or at least contributing to this finding. 2. No other acute finding is identified in the abdomen or pelvis. Electronically signed by: Kenrick Ortega MD 12/24/2017 1:52 AM EDT
[2017-12-24] MEDS ORDERED: Morphine Inj 4 MG/ML Vial IV.PUSH ONE (02:15)
[2017-12-24 03:49] LABS: Bilirubin,Urine Negative (Negative); Clarity,Urine Clear (Clear); Color,Urine Yellow (Yellw/Straw); Glucose,Urine (UA) Negative (Negative); Leukocyte Esterase,Urine Small (Negative); Mucus,Urine Few /lpf (Occasional); Nitrite,Urine Negative (Negative); Specific Gravity,Urine 1.048 (1.002-1.035); Squamous Epithelial Cell,Urine 3 /hpf (0-5)
[2017-12-24] MEDS ORDERED: Temazepam 15 MG Capsule PO PRN (04:29)
[2017-12-24] MEDS ORDERED: Acetaminophen 325 MG Tablet PO PRN (04:29)
[2017-12-24] MEDS ORDERED: Sod Chloride 0.9% Inj 1,000 ML IV.CONT SCH (04:30)
--- NOTE | 2017-12-24 05:36 | P.HP ---
History of Present Illness Service: [facility] Primary Care Physician: UNKNOWN History of Present Illness: 62-year-old male with a past medical history significant for hypertension, anxiety/depression, MU and GERD presents to the emergency department for evaluation of abdominal distention. The patient reports that for the past 2 days his abdomen has become distended and hard. He denies any associated pain. No fevers/chills. No nausea/vomiting. He reports continuous diarrhea for months. Inpatient Certification: I certify that the inpatient services were ordered in accordance with Medicare regulations governing the order. This includes certification that hospital inpatient services are reasonable and necessary and in the case of services not specified as inpatient-only under 42 CFR 419.22(n), that they are appropriately provided as inpatient services in accordance to with the 2-midnight benchmark under 43 CFR 412.3(e) Estimated Total Length of Stay (Days): 2 Plans for Post Hospital Care: SNF Review of Systems Denies fever or chills Denies blurry vision, otorrhea, rhinorrhea Denies sore throat and cough No chest pain, palpitations No shortness of breath or wheezing No abdominal pain Denies nausea/vomiting Denies muscle pain Denies focal weakness No rashes PMFSH - History History 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 - Medical History Medical History: Medical History (Last Updated 12/24/17 @ 05:28 by Naz Pena MD) Allergy Anxiety Cough Dry beriberi Edema Femur fracture GERD (gastroesophageal reflux disease) History of fall Hypertension Hypokalemia Hyponatremia Hypothyroid Insomnia Major depressive disorder Muscle spasm Muscle weakness Nausea & vomiting Obesity Obstructive sleep apnea Pain Skin disorder Vitamin B deficiency - Surgical History Surgical History: Surgical History (Last Updated 12/24/17 @ 05:29 by Naz Pena MD) H/O gastric bypass - Family History Family History: Family History (Last Updated 12/24/17 @ 05:29 by Naz Pena MD) Other Family history normal - Tobacco History Smoking Status: Unknown if ever smoked - Alcohol History How Often Do You Have a Drink Containing Alcohol: Never - Substance Use History Substance History: No History of Abuse - Travel History Recent Travel in the [place] Within the Last 8 Weeks: No Recent Travel Out of the Country Within the Last 8 Weeks: No - Immunization History Tetanus Immunization: Unsure Medications and Allergies Active Medications: Active Medications Acetaminophen (Tylenol) 650 mg PO Q4H PRN PRN Reason: Temp > 100.4 Hydrocodone Bitart/Acetaminophen ([place] 10/325) 1 tab PO Q6H PRN PRN Reason: PAIN SCALE 1 TO 5 Bupropion HCl (Wellbutrin Sr) 150 mg PO DAILY [facility] Duloxetine HCl (Cymbalta) 60 mg PO DAILY [facility] Furosemide (Lasix) 20 mg PO BID VERONICA Gabapentin (Neurontin) 300 mg PO TID VERONICA Sodium Chloride (Ns Inj) 1,000 mls @ 125 mls/hr IV.CONT .Q8H [facility]ONICA Stop: 12/24/17 05:44 Last Admin: 12/23/17 22:19 Dose: 125 mls/hr Sodium Chloride (Ns Inj) 1,000 mls @ 125 mls/hr IV.CONT .Q8H [facility] Levothyroxine Sodium (Synthroid) 50 mcg PO DAILY@0600 [facility] Meloxicam (Mobic) 15 mg PO DAILY [facility] Morphine Sulfate (Morphine Inj) 4 mg IV.PUSH Q4H PRN PRN Reason: pain 6-10 Nifedipine (Procardia Xl) 30 mg PO DAILY [facility] Ondansetron HCl (Zofran Odt) 4 mg PO Q6H PRN PRN Reason: NAUSEA OR VOMITING Pantoprazole Sodium (Protonix) 20 mg PO DAILY [facility] Potassium Chloride (K-Dur) 20 meq PO BID [facility] Quetiapine Fumarate (Seroquel) 100 mg PO HS VERONICA Spironolactone (Aldactone) 25 mg PO DAILY [facility] Temazepam (Restoril) 15 mg PO HS PRN PRN Reason: INSOMNIA Allergies Allergy/AdvReac Type Severity Reaction Status Date / Time No Known Allergies Allergy Unknown Uncoded 05/24/17 15:12 Home Medications Medication Instructions Recorded Confirmed Type Lactobacillus acidophilus 460 mg PO DAILY 12/23/17 12/23/17 History [Acidophilus] alum-mag hydroxide-simeth [Maalox 15 ml PO QID PRN 12/23/17 12/23/17 History Advanced] [id number] bmb 12/23/17 History [Evan] bupropion HCl 150 mg PO QAM 12/23/17 12/23/17 History docusate sodium [Colace] 100 mg PO BID 12/23/17 12/23/17 History duloxetine 60 mg PO DAILY 12/23/17 12/23/17 History furosemide [Lasix] 20 mg PO BID 12/23/17 12/23/17 History gabapentin 300 mg PO TID 12/23/17 12/23/17 History hydrocodone-acetaminophen [[place]] 1 tab PO Q6H PRN 12/23/17 12/23/17 History levothyroxine 50 mcg PO DAILY 12/23/17 12/23/17 History magnesium citrate 60 ml PO DAILY PRN 12/23/17 12/23/17 History magnesium hydroxide [Milk of 15 ml PO DAILY PRN 12/23/17 12/23/17 History Magnesia] meloxicam 15 mg PO DAILY 12/23/17 12/23/17 History methylcellulose (with sugar) 1.5 tbsp PO DAILY 12/23/17 12/23/17 History [Citrucel (sucrose)] nifedipine 30 mg PO DAILY 12/23/17 12/23/17 History omeprazole 20 mg PO DAILY 12/23/17 12/23/17 History ondansetron 4 mg PO TID PRN 12/23/17 12/23/17 History potassium chloride 20 meq PO BID 12/23/17 12/23/17 History quetiapine 100 mg PO HS 12/23/17 12/23/17 History sodium phosphates [Fleet Enema] 59 ml ID DAILY PRN 12/23/17 12/23/17 History spironolactone [Aldactone] 25 mg PO DAILY 12/23/17 12/23/17 History trazodone 100 mg PO DAILY 12/23/17 12/23/17 History Exam Vital signs: Vital Signs 12/23/17 20:20 12/24/17 03:01 Temperature 98.4 F Pulse Rate 80 88 Respiratory Rate 16 16 Blood Pressure 144/76 H 139/76 Pulse Oximetry 99 97 Intake & Output 12/23/17 12/23/17 12/24/17 06:59 18:59 06:59 Weight 129.274 kg Narrative: Gen.: No acute distress Head: Normocephalic. Atraumatic. EENT: Pupils equal round and reactive to light. Nose without drainage. Airway intact. Throat without injection. Cardiovascular: Regular rate and rhythm. No murmurs, rubs or gallops. Respiratory: Lungs clear to auscultation bilaterally. No wheezes or rhonchi. Abdomen: Distended. Nontender to palpation. Hypoactive bowel sounds. Musculoskeletal: No gross deformities. No edema. Skin: Chronic lower extremity skin changes Neuro: Sensory and motor grossly intact. Cranial nerves II through XII grossly intact. Results - Labs CBC & Chem 7: 12/23/17 22:05 12/23/17 22:05 Labs: Laboratory Results - last 24 hr 12/23/17 12/23/17 12/23/17 22:05 22:05 22:05 WBC 6.3 RBC 4.51 Hgb 13.4 Hct 39.7 MCV 87.9 MCH 29.7 MCHC 33.8 RDW 14.6 Plt Count 187 MPV 7.5 Neut % (Auto) 67.1 Lymph % (Auto) 15.8 Drew % (Auto) 10.0 H Eos % (Auto) 6.4 H Baso % (Auto) 0.7 Neut # (Auto) 4.2 Lymph # (Auto) 1.0 Drew # (Auto) 0.6 Eos # (Auto) 0.4 Baso # (Auto) 0.0 WBC Differential . Differential Comment Auto diff final PT 12.2 H INR 1.2 APTT 36.6 H Sodium 140 Potassium 4.0 Chloride 109 H Carbon Dioxide 27.1 Anion Gap 4 L BUN 29 H Creatinine 0.84 Estimated GFR Greater than 89 Random Glucose 86 Calcium 8.3 L Total Bilirubin 0.4 AST 15 ALT 12 Alkaline Phosphatase 95 Total Protein 7.0 Albumin 2.9 L Lipase 75 Urine Color Urine Clarity Urine pH Ur Specific [place] Urine Protein Urine Glucose (UA) Urine Ketones Urine Occult Blood Urine Nitrate Urine Bilirubin Urine Urobilinogen Ur Leukocyte Esterase Urine RBC Urine WBC Ur Squamous Epith Cells Urine Mucus Micro UA Comment Urine Culture Comments Blood Type Blood Type Recheck Antibody Screen 12/23/17 12/24/17 22:05 03:30 WBC RBC Hgb Hct MCV MCH MCHC RDW Plt Count MPV Neut % (Auto) Lymph % (Auto) Drew % (Auto) Eos % (Auto) Baso % (Auto) Neut # (Auto) Lymph # (Auto) Drew # (Auto) Eos # (Auto) Baso # (Auto) WBC Differential Differential Comment PT INR APTT Sodium Potassium Chloride Carbon Dioxide Anion Gap BUN Creatinine Estimated GFR Random Glucose Calcium Total Bilirubin AST ALT Alkaline Phosphatase Total Protein Albumin Lipase Urine Color Yellow Urine Clarity Clear Urine pH 5.0 Ur Specific [place] 1.048 H Urine Protein Negative Urine Glucose (UA) Negative Urine Ketones Negative Urine Occult Blood Negative Urine Nitrate Negative Urine Bilirubin Negative Urine Urobilinogen Less than 2 Ur Leukocyte Esterase Small H Urine RBC Less than 1 Urine WBC 1 Ur Squamous Epith Cells 3 Urine Mucus Few H Micro UA Comment Culture not ind Urine Culture Comments Culture not ind Blood Type AB Positive Blood Type Recheck Required Antibody Screen Negative - Imaging Impressions Abdomen/Pelvis CT 12/24/17 00:00 CONCLUSION: 1. Abnormal severe dilatation of the cecum, ascending colon, transverse colon, and descending colon. A similar pattern was present on the study from June 2015, however, the colon is more severely distended on the current examination. There is also a left inguinal hernia containing a portion of the sigmoid colon which could be the cause or at least contributing to this finding. 2. No other acute finding is identified in the abdomen or pelvis. Caprini VTE Risk Assessment Caprini VTE Risk Assessment: Moderate/High Risk (score >= 2) Caprini Risk Assessment Model: Point Value = 1 Point Value = 2 Point Value = 3 Point Value = 5 Age 41-60 Minor surgery BMI > 25 kg/m2 Swollen legs Varicose veins or History of unexplained or recurrent spontaneous Oral contraceptives or hormone replacement Sepsis (< 1 month) Serious lung disease, including pneumonia (< 1 month) Abnormal pulmonary function Acute myocardial infarction Congestive heart failure (< 1 month) History of inflammatory bowel disease Medical patient at bed rest Age 61-74 Arthroscopic surgery Major open surgery (> 45 min) Laparoscopic surgery (> 45 min) Malignancy Confined to bed (> 72 hours) Immobilizing plaster cast Central venous access Age >= 75 History of VTE Family history of VTE Factor V Leiden Prothrombin 22890H Lupus anticoagulant Anticardiolipin antibodies Elevated serum homocysteine Heparin-induced thrombocytopenia Other congenital or acquired thrombophilia Stroke (< 1 month) Elective arthroplasty Hip, pelvis, or leg fracture Acute spinal cord injury (< 1 month) Prophylaxis Regimen: Total Risk Factor Score Risk Level Prophylaxis Regimen 0-1 Low Early ambulation 2 Moderate Order ONE of the following: *Sequential Compression Device (SCD) *Heparin 5000 units SQ BID 3-4 Higher Order ONE of the following medications: *Heparin 5000 units SQ TID *Enoxaparin/Lovenox 40 mg SQ daily (WT < 150 kg, CrCl > 30 mL/min) *Enoxaparin/Lovenox 30 mg SQ daily (WT < 150 kg, CrCl > 10-29 mL/min) *Enoxaparin/Lovenox 30 mg SQ BID (WT < 150 kg, CrCl > 30 mL/min) AND/OR *Sequential Compression Device (SCD) 5 or more Highest Order ONE of the following medications: *Heparin 5000 units SQ TID (Preferred with Epidurals) *Enoxaparin/Lovenox 40 mg SQ daily (WT < 150 kg, CrCl > 30 mL/min) *Enoxaparin/Lovenox 30 mg SQ daily (WT < 150 kg, CrCl > 10-29 mL/min) *Enoxaparin/Lovenox 30 mg SQ BID (WT < 150 kg, CrCl > 30 mL/min) AND *Sequential Compression Device (SCD) Assessment and Plan - Plan Assessment/plan: 1. Abdominal distention CT of the abdomen/pelvis significant for transverse colon measuring 15 cm with abnormal severe dilation of the whole colon. Left inguinal hernia containing a portion of the sigmoid colon which may be contributing. Concern for toxic megacolon versus Othello's syndrome Gastroenterology consulted, appreciate recommendations General surgery consulted, appreciate recommendations 2. Hypertension Continue home nifedipine 3. CHF Continue home Lasix and spironolactone 4. Ascites/depression Continue home medications FEN N.p.o. Electrolytes: Monitor and replete as needed Holding pharmacologic anticoagulation for possible intervention
[2017-12-24] MEDS: Morphine Inj 4 MG/ML Vial IV.PUSH PRN ×3 (06:00→21:57)
[2017-12-24] MEDS: Levothyroxine 50 MCG Tablet PO SCH (06:00)
[2017-12-24] MEDS: buPROPion 150 MG 12 HR Tablet PO SCH (08:25)
[2017-12-24] MEDS: Gabapentin 300 MG Capsule PO SCH ×3 (08:26→17:05)
[2017-12-24] MEDS: Spironolactone 25 MG Tablet PO SCH (08:26)
[2017-12-24] MEDS: Meloxicam 15 MG Tablet PO SCH (08:27)
[2017-12-24] MEDS: Duloxetine 60 MG DR Capsule PO SCH (08:27)
[2017-12-24] MEDS: Furosemide 20 MG Tablet PO SCH ×2 (08:27→21:57)
[2017-12-24] MEDS: Pantoprazole Sodium 20 MG DR Tablet PO SCH (08:27)
[2017-12-24] MEDS ORDERED: Chlorhexidine Gluconate 2% 1 Pack (2 Cloths) TOPICAL SCH (08:30)
[2017-12-24] MEDS ORDERED: Metoprolol Tartrate 25 MG Tablet PO SCH (08:30)
[2017-12-24] MEDS ORDERED: Sodium Chlor 0.9% Inj 500 ML IV.SIG SCH (09:00)
--- NOTE | 2017-12-24 09:10 | P.CONGS ---
[facility] Gen Surgery Consult Note Consult date: 12/24/17 Narrative: The patient is a 62-year-old male who presented to the emergency department last night from his [facility] with complaints of progressive abdominal distention. He has had persistent diarrhea for months and only rarely has a more formed stool. He denies any abdominal pain. He denies nausea vomiting or difficulty eating. He has been eating full meals. The patient has a history of lap gastric bypass by Dr. Belcher in 2008. He has multiple comorbid medical conditions as well as depression. He is on multiple psychiatric medications as well as Lortab. He is nearly bedbound. He states he is able to walk but rarely does and is not fully steady on his feet. On evaluation in the emergency department he was noted to have massive distention of the abdomen. Labs are normal. CT scan of the abdomen and pelvis shows severe dilatation of the ascending, transverse, and descending colon. On review of his medical records he had a similar admission in [address] scan appearance of the colon. It was slightly less dilated at that time. He did undergo colonoscopy decompression and rectal tube placement at that time. It is unclear if he had real resolution of the dilatation or not or if he had any outpatient follow-up at that time. Review of Systems All other systems reviewed negative except as stated in HPI Skin/Breast: Reports wounds (Left lower extreme) PMFSH - History History Provided By: Patient - Medical History Medical History: Medical History (Last Updated 12/24/17 @ 05:28 by Naz Pena MD) Allergy Anxiety Cough Dry beriberi Edema Femur fracture GERD (gastroesophageal reflux disease) History of fall Hypertension Hypokalemia Hyponatremia Hypothyroid Insomnia Major depressive disorder Muscle spasm Muscle weakness Nausea & vomiting Obesity Obstructive sleep apnea Pain Skin disorder Vitamin B deficiency - Surgical History Surgical History: Surgical History (Last Updated 12/24/17 @ 05:29 by Naz Pena MD) H/O gastric bypass - Family History Family History: Family History (Last Updated 12/24/17 @ 05:29 by Naz Pena MD) Other Family history normal - Tobacco History Second Hand Smoke Exposure: No Tobacco Use In Past 30 Days: No Smoking Status: Former smoker - Alcohol History How Often Do You Have a Drink Containing Alcohol: Never - Substance Use History Substance History: No History of Abuse - Travel History Recent Travel in the [facility] Within the Last 8 Weeks: No Recent Travel Out of the Country Within the Last 8 Weeks: No - Immunization History Tetanus Immunization: Unsure Medications and Allergies Active Medications: Active Medications Acetaminophen (Tylenol) 650 mg PO Q4H PRN PRN Reason: Temp > 100.4 Hydrocodone Bitart/Acetaminophen ([place] 10/325) 1 tab PO Q6H PRN PRN Reason: PAIN SCALE 1 TO 5 Bupropion HCl (Wellbutrin Sr) 150 mg PO DAILY [facility] Last Admin: 12/24/17 08:25 Dose: 150 mg Chlorhexidine Gluconate (Chlorhexidine 2% Cloth) 3 pack [employer] [facility] Stop: 12/27/17 08:17 Duloxetine HCl (Cymbalta) 60 mg PO DAILY [facility] Last Admin: 12/24/17 08:27 Dose: 60 mg Furosemide (Lasix) 20 mg PO BID [facility] Last Admin: 12/24/17 08:27 Dose: 20 mg Gabapentin (Neurontin) 300 mg PO TID [facility] Last Admin: 12/24/17 08:26 Dose: 300 mg Lactated Ringer's (Lr 1000 Ml Inj) 1,000 mls @ 30 mls/hr IV.SIG .Q24H [facility] Stop: 12/27/17 08:17 Sodium Chloride (Ns Inj) 500 mls @ 30 mls/hr IV.SIG .Q10H [facility] Stop: 12/27/17 08:17 Levothyroxine Sodium (Synthroid) 50 mcg PO DAILY@0600 [facility] Last Admin: 12/24/17 06:00 Dose: 50 mcg Meloxicam (Mobic) 15 mg PO DAILY [facility] Last Admin: 12/24/17 08:27 Dose: 15 mg Metoprolol Tartrate (Lopressor) 25 mg PO [employer] [facility] Stop: 12/27/17 08:17 Morphine Sulfate (Morphine Inj) 4 mg IV.PUSH Q4H PRN PRN Reason: pain 6-10 Last Admin: 12/24/17 06:00 Dose: 4 mg Nifedipine (Procardia Xl) 30 mg PO DAILY [facility] Last Admin: 12/24/17 08:25 Dose: 30 mg Ondansetron HCl (Zofran Odt) 4 mg PO Q6H PRN PRN Reason: NAUSEA OR VOMITING Pantoprazole Sodium (Protonix) 20 mg PO DAILY [facility] Last Admin: 12/24/17 08:27 Dose: 20 mg Potassium Chloride (K-Dur) 20 meq PO BID [facility] Last Admin: 12/24/17 08:25 Dose: 20 meq Povidone Iodine (Betadine 5% Antisepsis Kit) 1 applicatio EACH [employer] [facility] Stop: 12/27/17 08:17 Quetiapine Fumarate (Seroquel) 100 mg PO HS [facility] Spironolactone (Aldactone) 25 mg PO DAILY [facility] Last Admin: 12/24/17 08:26 Dose: 25 mg Temazepam (Restoril) 15 mg PO HS PRN PRN Reason: INSOMNIA Allergies Allergy/AdvReac Type Severity Reaction Status Date / Time No Known Allergies Allergy Unknown Uncoded 05/24/17 15:12 Home Medications Medication Instructions Recorded Confirmed Type Lactobacillus acidophilus 460 mg PO DAILY 12/23/17 12/23/17 History [Acidophilus] alum-mag hydroxide-simeth [Maalox 15 ml PO QID PRN 12/23/17 12/23/17 History Advanced] [id number] bmb 12/23/17 History [Evan] bupropion HCl 150 mg PO QAM 12/23/17 12/23/17 History docusate sodium [Colace] 100 mg PO BID 12/23/17 12/23/17 History duloxetine 60 mg PO DAILY 12/23/17 12/23/17 History furosemide [Lasix] 20 mg PO BID 12/23/17 12/23/17 History gabapentin 300 mg PO TID 12/23/17 12/23/17 History hydrocodone-acetaminophen [[place]] 1 tab PO Q6H PRN 12/23/17 12/23/17 History levothyroxine 50 mcg PO DAILY 12/23/17 12/23/17 History magnesium citrate 60 ml PO DAILY PRN 12/23/17 12/23/17 History magnesium hydroxide [Milk of 15 ml PO DAILY PRN 12/23/17 12/23/17 History Magnesia] meloxicam 15 mg PO DAILY 12/23/17 12/23/17 History methylcellulose (with sugar) 1.5 tbsp PO DAILY 12/23/17 12/23/17 History [Citrucel (sucrose)] nifedipine 30 mg PO DAILY 12/23/17 12/23/17 History omeprazole 20 mg PO DAILY 12/23/17 12/23/17 History ondansetron 4 mg PO TID PRN 12/23/17 12/23/17 History potassium chloride 20 meq PO BID 12/23/17 12/23/17 History quetiapine 100 mg PO HS 12/23/17 12/23/17 History sodium phosphates [Fleet Enema] 59 ml AR DAILY PRN 12/23/17 12/23/17 History spironolactone [Aldactone] 25 mg PO DAILY 12/23/17 12/23/17 History trazodone 100 mg PO DAILY 12/23/17 12/23/17 History Exam Vital signs: Vital Signs 12/23/17 20:20 12/24/17 03:01 12/24/17 06:01 Temperature 98.4 F 98.3 F Pulse Rate 80 88 77 Respiratory Rate 16 16 20 Blood Pressure 144/76 H 139/76 145/90 H Pulse Oximetry 99 97 96 12/24/17 08:33 Temperature 98.4 F Pulse Rate 83 Respiratory Rate 16 Blood Pressure 146/93 H Pulse Oximetry 99 Intake & Output 12/23/17 12/24/17 12/24/17 18:59 06:59 18:59 Intake Total 1000 / 1000 Balance 1000 / 1000 Weight 137.3 kg Intake: IV 1000 / 1000 NS Inj 1,000 ML @ 125 mls/hr IV 1000 / 1000 .CONT .Q8H [facility] Rx#:[id number] Other: # Voids 2 Date of Last Bowel Movement 12/24/17 # Bowel Movements 1 Weight On Admission 137.3 kg Narrative: GENERAL: Awake and alert. No acute distress. Cooperative. Obese. Appears somewhat chronically ill and Older than stated age. HEAD: Normocephalic. Atraumatic. EYES: Pupils equal round and reactive to light bilaterally. No scleral icterus. ENT: Moist oral mucosa. NECK: Trachea midline. CHEST: Nonlabored breathing. No respiratory distress. CARDIOVASCULAR: Regular rate and rhythm. ABDOMEN: Massive distention. Thin abdominal wall except for loose skin laterally. Tympanitic to percussion. Nontender. Soft. EXTREMITIES: Pitting edema bilateral lower extremities with some skin changes. The left ankle and pettit are wrapped. SKIN: Warm, dry, nonjaundiced. Results - Labs 12/23/17 22:05 12/23/17 22:05 Abnormal lab results 12/23/17 12/23/17 12/23/17 Range/Units 22:05 22:05 22:05 [place] % (Auto) 10.0 H (0.0-8.0) % Eos % (Auto) 6.4 H (0.0-4.0) % PT 12.2 H (9.8-11.6) sec APTT 36.6 H (24.3-30.1) sec Chloride 109 H (98-107) meq/L Anion Gap 4 L (5-15) meq/L BUN 29 H (7-18) mg/dL Calcium 8.3 L (8.5-10.1) mg/dL Albumin 2.9 L (3.4-5.0) g/dL Ur Specific [place] (1.002-1.035) Ur Leukocyte Esterase (Negative) Urine Mucus (Occasional) /lpf 12/24/17 Range/Units 03:30 [place] % (Auto) (0.0-8.0) % Eos % (Auto) (0.0-4.0) % PT (9.8-11.6) sec APTT (24.3-30.1) sec Chloride (98-107) meq/L Anion Gap (5-15) meq/L BUN (7-18) mg/dL Calcium (8.5-10.1) mg/dL Albumin (3.4-5.0) g/dL Ur Specific [place] 1.048 H (1.002-1.035) Ur Leukocyte Esterase Small H (Negative) Urine Mucus Few H (Occasional) /lpf Diabetes panel 12/23/17 Range/Units 22:05 Sodium 140 (136-145) meq/L Potassium 4.0 (3.5-5.1) meq/L Chloride 109 H (98-107) meq/L Carbon Dioxide 27.1 (21.0-32.0) meq/L BUN 29 H (7-18) mg/dL Creatinine 0.84 (0.60-1.30) mg/dL Calcium 8.3 L (8.5-10.1) mg/dL AST 15 (15-37) U/L ALT 12 (12-78) U/L Alkaline Phosphatase 95 (45-117) U/L Total Protein 7.0 (6.4-8.2) g/dL Albumin 2.9 L (3.4-5.0) g/dL Calcium panel 12/23/17 Range/Units 22:05 Calcium 8.3 L (8.5-10.1) mg/dL Albumin 2.9 L (3.4-5.0) g/dL Pituitary panel 12/23/17 Range/Units 22:05 Sodium 140 (136-145) meq/L Potassium 4.0 (3.5-5.1) meq/L Chloride 109 H (98-107) meq/L Carbon Dioxide 27.1 (21.0-32.0) meq/L BUN 29 H (7-18) mg/dL Creatinine 0.84 (0.60-1.30) mg/dL Calcium 8.3 L (8.5-10.1) mg/dL Adrenal panel 12/23/17 Range/Units 22:05 Sodium 140 (136-145) meq/L Potassium 4.0 (3.5-5.1) meq/L Chloride 109 H (98-107) meq/L Carbon Dioxide 27.1 (21.0-32.0) meq/L BUN 29 H (7-18) mg/dL Creatinine 0.84 (0.60-1.30) mg/dL Calcium 8.3 L (8.5-10.1) mg/dL Total Bilirubin 0.4 (0.2-1.0) mg/dL AST 15 (15-37) U/L ALT 12 (12-78) U/L Alkaline Phosphatase 95 (45-117) U/L Total Protein 7.0 (6.4-8.2) g/dL Albumin 2.9 L (3.4-5.0) g/dL All other labs normal. - Imaging CT scan - abdomen: report reviewed, image reviewed CT scan - pelvis: report reviewed, image reviewed Assessment and Plan - Plan 62-year-old male with massive dilatation of the proximal colon all the way to but not including the sigmoid and rectum. This is a chronic issue. 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 Also there could be relation to his psychiatric and pain medications. Case was discussed with Dr. mark to his planning attempt at decompressive colonoscopy today. I discussed the case in detail with the patient. There are many surgical options if he does have persistent colonic dilatation and lack of peristalsis. These include subtotal colectomy with anastomosis versus subtotal colectomy with ileostomy versus cecostomy tube. He is quite a poor functional candidate for major surgery. He would likely benefit most from a more minimal approach. He is currently stating that he would like to avoid any surgery if at all possible. Will continue to follow.
[2017-12-24] MEDS ORDERED: Lidocaine PF 1% Inj 5 ML Syringe INFILTRATN ONE (12:00)
--- NOTE | 2017-12-24 12:29 | GIPROC ---
[facility] [address] [facility]. 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 PREP QUALITY: poor PREP TYPE:Other: ESTIMATED BLOOD LOSS: None CONSENT: The patient understands the risks and benefits of the procedure and understands that these risks include, but are not limited to: sedation, allergic reaction, infection, perforation and/or bleeding. Alternative means of evaluation and treatment include, among others: physical exam, x-rays, and/or surgical intervention. The patient elects to proceed with this endoscopic procedure. medical equipment was checked for proper function. Hand hygiene and appropriate measures for infection prevention was taken. After the risks, benefits and alternatives of the procedure were thoroughly explained, Informed consent was verified, confirmed and timeout was successfully executed by the treatment team. A digital exam tight anal sphyncter The Pentax [id number] endoscope was introduced through the anus and advanced to the cecum, which was identified by both the appendix and ileocecal valve. The instrument was then slowly withdrawn as the colon was fully examined. COLON FINDINGS: Dilated right colon, agressive suctioning and decompression, improvement in abdominal distension. Retroflexed views revealed internal hemorrhoids and Retroflexed views revealed small internal hemorrhoids The scope was then completely withdrawn from the patient and the procedure terminated. ADVERSE EVENTS: There were no complications. IMPRESSIONS: 1. Dilated right colon, agressive suctioning and decompression, improvement in abdominal distension 2. Retroflexed views revealed internal hemorrhoids 3. Retroflexed views revealed small internal hemorrhoids 4. Tight anal sphyncter RECOMMENDATIONS: Clear liquid diet rectal tube to suction-was palced during colonoscopy Trial of Relistore, Lactulose anal manometry op-not avaialble in the hospital surgical fu bowel regimen if not better consider colostomy-at this time patient reluctant to have surgery RECALL: Return 1 month Colonoscopy Sinai Jones MD eSigned: Sinai Jones MD 12/24/2017 12:28 PM cc:
--- NOTE | 2017-12-24 14:47 | ECG ---
Date Performed: 12/23/2017 Time Performed: 22:13:54 PTAGE: 62 years EKG: Sinus rhythm WITH OCCASIONAL VENTRICULAR PREMATURE COMPLEXES BORDERLINE ECG Since the PREVIOUS TRACING , no significant change noted PREVIOUS TRACIN05/24/2017 15.45 DOCTOR: Sina Corona Interpretating Date/Time 12/24/2017 14:41:28
--- NOTE | 2017-12-24 14:48 | ECG ---
Date Performed: 12/24/2017 Time Performed: 08:22:55 PTAGE: 62 years EKG: Sinus rhythm NORMAL ECG Since the PREVIOUS TRACING , no significant change noted PREVIOUS TRACIN12/23/2017 22.13 DOCTOR: Sina Corona Interpretating Date/Time 12/24/2017 14:41:48
--- NOTE | 2017-12-24 14:50 | P.CONGI ---
History of Present Illness Consult date: 12/24/17 Consult reason: Abdominal distention Chief complaint: Agapito Syndrome History of Present Illness: This is a morbid obese male who came into the hospital for evaluation on 2017 for uncontrolled severe abdominal distention. Patient is a poor historian so a lot of the history is being gathered from the record. Patient initially stated 2 days of abdominal pain but also notes increased distention over the past few months. Currently patient denies any nausea or vomiting or dyspepsia but does have a history of GERD. Patient's appetite has been fair to good, and he denies any constipation. He does note loose stools often known but is unsure of timing or situation or number of stools. Patient has a history of Agapito syndrome and gastroenterology has been consulted to assist with his care. Patient states history of colonoscopy 7-8 years ago and no known endoscopy. He denies any family history of colon cancer. CT scan performed showed abnormal severe dilatation of the cecum, ascending, transverse and descending colon. A similar pattern was present from the study of June 2015 however the colon is more severely distended on this current exam. left inguinal hernia containing a portion of the sigmoid colon could be the cause or at least contributing to this finding. Current labs show hemoglobin 13.4. <Becca Lynne - Last Filed: 12/24/17 14:34> Review of Systems All other systems reviewed negative except as stated in HPI <Becca Lynne - Last Filed: 12/24/17 14:34> PMFSH - History History Provided By: Patient - Medical History Medical History: Medical History (Last Updated 12/24/17 @ 05:28 by Naz Pena MD) Allergy Anxiety Cough Dry beriberi Edema Femur fracture GERD (gastroesophageal reflux disease) History of fall Hypertension Hypokalemia Hyponatremia Hypothyroid Insomnia Major depressive disorder Muscle spasm Muscle weakness Nausea & vomiting Obesity Obstructive sleep apnea Pain Skin disorder Vitamin B deficiency - Surgical History Surgical History: Surgical History (Last Updated 12/24/17 @ 05:29 by Naz Pena MD) H/O gastric bypass - Family History Family History: Family History (Last Updated 12/24/17 @ 05:29 by Naz Pena MD) Other Family history normal - Tobacco History Second Hand Smoke Exposure: No Tobacco Use In Past 30 Days: No Smoking Status: Former smoker - Alcohol History How Often Do You Have a Drink Containing Alcohol: Never - Substance Use History Substance History: No History of Abuse - Travel History Recent Travel in the [place] Within the Last 8 Weeks: No Recent Travel Out of the Country Within the Last 8 Weeks: No - Immunization History Tetanus Immunization: Unsure <GueraBecca M - Last Filed: 12/24/17 14:34> - Medical History Medical History: Medical History (Last Updated 12/24/17 @ 05:28 by Naz Pena MD) Allergy Anxiety Cough Dry beriberi Edema Femur fracture GERD (gastroesophageal reflux disease) History of fall Hypertension Hypokalemia Hyponatremia Hypothyroid Insomnia Major depressive disorder Muscle spasm Muscle weakness Nausea & vomiting Obesity Obstructive sleep apnea Pain Skin disorder Vitamin B deficiency - Surgical History Surgical History: Surgical History (Last Updated 12/24/17 @ 05:29 by Naz Pena MD) H/O gastric bypass - Family History Family History: Family History (Last Updated 12/24/17 @ 05:29 by Naz Pena MD) Other Family history normal <Sinai Jones - Last Filed: 12/24/17 17:06> Medications and Allergies Active Medications: Active Medications Acetaminophen (Tylenol) 650 mg PO Q4H PRN PRN Reason: Temp > 100.4 Hydrocodone Bitart/Acetaminophen (Eagle 10/325) 1 tab PO Q6H PRN PRN Reason: PAIN SCALE 1 TO 5 Bupropion HCl (Wellbutrin Sr) 150 mg PO DAILY [facility] Last Admin: 12/24/17 08:25 Dose: 150 mg Chlorhexidine Gluconate (Chlorhexidine 2% Cloth) 3 pack TOPICAL EMERGENCY DISPATCH OPERATOR [facility] Stop: 12/27/17 08:17 Duloxetine HCl (Cymbalta) 60 mg PO DAILY [facility] Last Admin: 12/24/17 08:27 Dose: 60 mg Furosemide (Lasix) 20 mg PO BID [facility] Last Admin: 12/24/17 08:27 Dose: 20 mg Gabapentin (Neurontin) 300 mg PO TID [facility] Last Admin: 12/24/17 08:26 Dose: 300 mg Lactated Ringer's (Lr 1000 Ml Inj) 1,000 mls @ 30 mls/hr IV.SIG .Q24H [facility] Stop: 12/27/17 08:17 Sodium Chloride (Ns Inj) 500 mls @ 30 mls/hr IV.SIG .Q10H [facility] Stop: 12/27/17 08:17 Lactulose (Lactulose Liq) 30 ml PO BID [facility] Levothyroxine Sodium (Synthroid) 50 mcg PO DAILY@0600 [facility] Last Admin: 12/24/17 06:00 Dose: 50 mcg Meloxicam (Mobic) 15 mg PO DAILY [facility] Last Admin: 12/24/17 08:27 Dose: 15 mg Methylnaltrexone [place] (Relistor) 12 mg SQ DAILY [facility] Metoprolol Tartrate (Lopressor) 25 mg PO EMERGENCY DISPATCH OPERATOR [facility] Stop: 12/27/17 08:17 Morphine Sulfate (Morphine Inj) 4 mg IV.PUSH Q4H PRN PRN Reason: pain 6-10 Last Admin: 12/24/17 06:00 Dose: 4 mg Nifedipine (Procardia Xl) 30 mg PO DAILY [facility] Last Admin: 12/24/17 08:25 Dose: 30 mg Ondansetron HCl (Zofran Odt) 4 mg PO Q6H PRN PRN Reason: NAUSEA OR VOMITING Pantoprazole Sodium (Protonix) 20 mg PO DAILY [facility] Last Admin: 12/24/17 08:27 Dose: 20 mg Potassium Chloride (K-Dur) 20 meq PO BID [facility] Last Admin: 12/24/17 08:25 Dose: 20 meq Povidone Iodine (Betadine 5% Antisepsis Kit) 1 applicatio EACH NARE EMERGENCY DISPATCH OPERATOR [facility] Stop: 12/27/17 08:17 Quetiapine Fumarate (Seroquel) 100 mg PO HS [facility] Spironolactone (Aldactone) 25 mg PO DAILY [facility] Last Admin: 12/24/17 08:26 Dose: 25 mg Temazepam (Restoril) 15 mg PO HS PRN PRN Reason: INSOMNIA <Becca Lynne M - Last Filed: 12/24/17 14:34> Active Medications: Active Medications Acetaminophen (Tylenol) 650 mg PO Q4H PRN PRN Reason: Temp > 100.4 Hydrocodone Bitart/Acetaminophen (Eagle 10/325) 1 tab PO Q6H PRN PRN Reason: PAIN SCALE 1 TO 5 Bupropion HCl (Wellbutrin Sr) 150 mg PO DAILY [facility] Last Admin: 12/24/17 08:25 Dose: 150 mg Chlorhexidine Gluconate (Chlorhexidine 2% Cloth) 3 pack TOPICAL EMERGENCY DISPATCH OPERATOR [facility] Stop: 12/27/17 08:17 Duloxetine HCl (Cymbalta) 60 mg PO DAILY [facility] Last Admin: 12/24/17 08:27 Dose: 60 mg Furosemide (Lasix) 20 mg PO BID [facility] Last Admin: 12/24/17 08:27 Dose: 20 mg Gabapentin (Neurontin) 300 mg PO TID [facility] Last Admin: 12/24/17 17:05 Dose: 300 mg Lactated Ringer's (Lr 1000 Ml Inj) 1,000 mls @ 30 mls/hr IV.SIG .Q24H [facility] Stop: 12/27/17 08:17 Last Admin: 12/24/17 15:06 Dose: Not Given Sodium Chloride (Ns Inj) 500 mls @ 30 mls/hr IV.SIG .Q10H [facility] Stop: 12/27/17 08:17 Lactulose (Lactulose Liq) 30 ml PO BID [facility] Last Admin: 12/24/17 16:51 Dose: 30 ml Levothyroxine Sodium (Synthroid) 50 mcg PO DAILY@0600 [facility] Last Admin: 12/24/17 06:00 Dose: 50 mcg Meloxicam (Mobic) 15 mg PO DAILY [facility] Last Admin: 12/24/17 08:27 Dose: 15 mg Methylnaltrexone [place] (Relistor) 12 mg SQ DAILY [facility] Last Admin: 12/24/17 16:52 Dose: 12 mg Metoprolol Tartrate (Lopressor) 25 mg PO EMERGENCY DISPATCH OPERATOR [facility] Stop: 12/27/17 08:17 Morphine Sulfate (Morphine Inj) 4 mg IV.PUSH Q4H PRN PRN Reason: pain 6-10 Last Admin: 12/24/17 17:00 Dose: 4 mg Nifedipine (Procardia Xl) 30 mg PO DAILY [facility] Last Admin: 12/24/17 08:25 Dose: 30 mg Ondansetron HCl (Zofran Odt) 4 mg PO Q6H PRN PRN Reason: NAUSEA OR VOMITING Pantoprazole Sodium (Protonix) 20 mg PO DAILY [facility] Last Admin: 12/24/17 08:27 Dose: 20 mg Potassium Chloride (K-Dur) 20 meq PO BID [facility] Last Admin: 12/24/17 08:25 Dose: 20 meq Povidone Iodine (Betadine 5% Antisepsis Kit) 1 applicatio EACH NARE EMERGENCY DISPATCH OPERATOR [facility] Stop: 12/27/17 08:17 Quetiapine Fumarate (Seroquel) 100 mg PO HS [facility] Spironolactone (Aldactone) 25 mg PO DAILY [facility] Last Admin: 12/24/17 08:26 Dose: 25 mg Temazepam (Restoril) 15 mg PO HS PRN PRN Reason: INSOMNIA <JohnnieBrittany riose - Last Filed: 12/24/17 17:06> Allergies Allergy/AdvReac Type Severity Reaction Status Date / Time No Known Allergies Allergy Unknown Uncoded 05/24/17 15:12 Home Medications Medication Instructions Recorded Confirmed Type Lactobacillus acidophilus 460 mg PO DAILY 12/23/17 12/23/17 History [Acidophilus] alum-mag hydroxide-simeth [Maalox 15 ml PO QID PRN 12/23/17 12/23/17 History Advanced] [id number] bmb 12/23/17 History [Evan] bupropion HCl 150 mg PO QAM 12/23/17 12/23/17 History docusate sodium [Colace] 100 mg PO BID 12/23/17 12/23/17 History duloxetine 60 mg PO DAILY 12/23/17 12/23/17 History furosemide [Lasix] 20 mg PO BID 12/23/17 12/23/17 History gabapentin 300 mg PO TID 12/23/17 12/23/17 History hydrocodone-acetaminophen [Eagle] 1 tab PO Q6H PRN 12/23/17 12/23/17 History levothyroxine 50 mcg PO DAILY 12/23/17 12/23/17 History magnesium citrate 60 ml PO DAILY PRN 12/23/17 12/23/17 History magnesium hydroxide [Milk of 15 ml PO DAILY PRN 12/23/17 12/23/17 History Magnesia] meloxicam 15 mg PO DAILY 12/23/17 12/23/17 History methylcellulose (with sugar) 1.5 tbsp PO DAILY 12/23/17 12/23/17 History [Citrucel (sucrose)] nifedipine 30 mg PO DAILY 12/23/17 12/23/17 History omeprazole 20 mg PO DAILY 12/23/17 12/23/17 History ondansetron 4 mg PO TID PRN 12/23/17 12/23/17 History potassium chloride 20 meq PO BID 12/23/17 12/23/17 History quetiapine 100 mg PO HS 12/23/17 12/23/17 History sodium phosphates [Fleet Enema] 59 ml [place] DAILY PRN 12/23/17 12/23/17 History spironolactone [Aldactone] 25 mg PO DAILY 12/23/17 12/23/17 History trazodone 100 mg PO DAILY 12/23/17 12/23/17 History Exam Vital signs: Vital Signs 12/23/17 20:20 12/24/17 03:01 12/24/17 06:01 Temperature 98.4 F 98.3 F Pulse Rate 80 88 77 Respiratory Rate 16 16 20 Blood Pressure 144/76 H 139/76 145/90 H Pulse Oximetry 99 97 96 12/24/17 08:33 12/24/17 12:17 Temperature 98.4 F 96.7 F L Pulse Rate 83 86 Respiratory Rate 16 18 Blood Pressure 146/93 H 117/62 Pulse Oximetry 99 99 Intake & Output 12/23/17 12/24/17 12/24/17 18:59 06:59 18:59 Intake Total 1000 / 1000 800 / 800 Balance 1000 / 1000 800 / 800 Weight 137.3 kg Intake: IV 1000 / 1000 NS Inj 1,000 ML @ 125 mls/hr IV 1000 / 1000 .CONT .Q8H [facility] Rx#:[id number] Anesthesia Amount 800 / 800 Other: # Voids 2 Date of Last Bowel Movement 12/24/17 # Bowel Movements 1 Weight On Admission 137.3 kg - Constitutional mild distress, morbidly obese - Routine HEENT Exam Head: Present: normocephalic, atraumatic ENT: Present: mucous membranes moist - Routine Neck Exam Present: supple - Routine Respiratory Exam Present: accessory muscle use - Routine Cardiovascular Exam Present: S1, S2 - Routine Abdominal Exam Present: distended - Routine Neurological Exam Present: alert <Becca Lynne - Last Filed: 12/24/17 14:34> Vital signs: Vital Signs 12/23/17 20:20 12/24/17 03:01 12/24/17 06:01 Temperature 98.4 F 98.3 F Pulse Rate 80 88 77 Respiratory Rate 16 16 20 Blood Pressure 144/76 H 139/76 145/90 H Pulse Oximetry 99 97 96 12/24/17 08:33 12/24/17 12:17 12/24/17 16:00 Temperature 98.4 F 96.7 F L 97.7 F Pulse Rate 83 86 96 H Respiratory Rate 16 18 18 Blood Pressure 146/93 H 117/62 138/80 Pulse Oximetry 99 99 99 Intake & Output 12/23/17 12/24/17 12/24/17 18:59 06:59 18:59 Intake Total 1000 / 1000 800 / 800 Balance 1000 / 1000 800 / 800 Weight 137.3 kg Intake: IV 1000 / 1000 NS Inj 1,000 ML @ 125 mls/hr IV 1000 / 1000 .CONT .Q8H [facility] Rx#:[id number] Anesthesia Amount 800 / 800 Other: # Voids 2 Date of Last Bowel Movement 12/24/17 # Bowel Movements 1 Weight On Admission 137.3 kg <Sinai Jones - Last Filed: 12/24/17 17:06> Results - Labs CBC & Chem 7: 12/23/17 22:05 12/23/17 22:05 Labs: Laboratory Results - last 24 hr 12/23/17 12/23/17 12/23/17 22:05 22:05 22:05 WBC 6.3 RBC 4.51 Hgb 13.4 Hct 39.7 MCV 87.9 MCH 29.7 MCHC 33.8 RDW 14.6 Plt Count 187 MPV 7.5 Neut % (Auto) 67.1 Lymph % (Auto) 15.8 [place] % (Auto) 10.0 H Eos % (Auto) 6.4 H Baso % (Auto) 0.7 Neut # (Auto) 4.2 Lymph # (Auto) 1.0 [place] # (Auto) 0.6 Eos # (Auto) 0.4 Baso # (Auto) 0.0 WBC Differential . Differential Comment Auto diff final PT 12.2 H INR 1.2 APTT 36.6 H Sodium 140 Potassium 4.0 Chloride 109 H Carbon Dioxide 27.1 Anion Gap 4 L BUN 29 H Creatinine 0.84 Estimated GFR Greater than 89 Random Glucose 86 Calcium 8.3 L Total Bilirubin 0.4 AST 15 ALT 12 Alkaline Phosphatase 95 Total Protein 7.0 Albumin 2.9 L Lipase 75 Urine Color Urine Clarity Urine pH Ur Specific [place] Urine Protein Urine Glucose (UA) Urine Ketones Urine Occult Blood Urine Nitrate Urine Bilirubin Urine Urobilinogen Ur Leukocyte Esterase Urine RBC Urine WBC Ur Squamous Epith Cells Urine Mucus Micro UA Comment Urine Culture Comments Blood Type Blood Type Recheck Antibody Screen 12/23/17 12/24/17 22:05 03:30 WBC RBC Hgb Hct MCV MCH MCHC RDW Plt Count MPV Neut % (Auto) Lymph % (Auto) [place] % (Auto) Eos % (Auto) Baso % (Auto) Neut # (Auto) Lymph # (Auto) [place] # (Auto) Eos # (Auto) Baso # (Auto) WBC Differential Differential Comment PT INR APTT Sodium Potassium Chloride Carbon Dioxide Anion Gap BUN Creatinine Estimated GFR Random Glucose Calcium Total Bilirubin AST ALT Alkaline Phosphatase Total Protein Albumin Lipase Urine Color Yellow Urine Clarity Clear Urine pH 5.0 Ur Specific [place] 1.048 H Urine Protein Negative Urine Glucose (UA) Negative Urine Ketones Negative Urine Occult Blood Negative Urine Nitrate Negative Urine Bilirubin Negative Urine Urobilinogen Less than 2 Ur Leukocyte Esterase Small H Urine RBC Less than 1 Urine WBC 1 Ur Squamous Epith Cells 3 Urine Mucus Few H Micro UA Comment Culture not ind Urine Culture Comments Culture not ind Blood Type AB Positive Blood Type Recheck Required Antibody Screen Negative - Imaging Impressions Abdomen/Pelvis CT 12/24/17 00:00 CONCLUSION: 1. Abnormal severe dilatation of the cecum, ascending colon, transverse colon, and descending colon. A similar pattern was present on the study from June 2015, however, the colon is more severely distended on the current examination. There is also a left inguinal hernia containing a portion of the sigmoid colon which could be the cause or at least contributing to this finding. 2. No other acute finding is identified in the abdomen or pelvis. <Becca Lynne - Last Filed: 12/24/17 14:34> - Labs CBC & Chem 7: 12/23/17 22:05 12/23/17 22:05 Labs: Laboratory Results - last 24 hr 12/23/17 12/23/17 12/23/17 22:05 22:05 22:05 WBC 6.3 RBC 4.51 Hgb 13.4 Hct 39.7 MCV 87.9 MCH 29.7 MCHC 33.8 RDW 14.6 Plt Count 187 MPV 7.5 Neut % (Auto) 67.1 Lymph % (Auto) 15.8 [place] % (Auto) 10.0 H Eos % (Auto) 6.4 H Baso % (Auto) 0.7 Neut # (Auto) 4.2 Lymph # (Auto) 1.0 [place] # (Auto) 0.6 Eos # (Auto) 0.4 Baso # (Auto) 0.0 WBC Differential . Differential Comment Auto diff final PT 12.2 H INR 1.2 APTT 36.6 H Sodium 140 Potassium 4.0 Chloride 109 H Carbon Dioxide 27.1 Anion Gap 4 L BUN 29 H Creatinine 0.84 Estimated GFR Greater than 89 Random Glucose 86 Calcium 8.3 L Total Bilirubin 0.4 AST 15 ALT 12 Alkaline Phosphatase 95 Total Protein 7.0 Albumin 2.9 L Lipase 75 Urine Color Urine Clarity Urine pH Ur Specific [place] Urine Protein Urine Glucose (UA) Urine Ketones Urine Occult Blood Urine Nitrate Urine Bilirubin Urine Urobilinogen Ur Leukocyte Esterase Urine RBC Urine WBC Ur Squamous Epith Cells Urine Mucus Micro UA Comment Urine Culture Comments Blood Type Blood Type Recheck Antibody Screen 12/23/17 12/24/17 22:05 03:30 WBC RBC Hgb Hct MCV MCH MCHC RDW Plt Count MPV Neut % (Auto) Lymph % (Auto) [place] % (Auto) Eos % (Auto) Baso % (Auto) Neut # (Auto) Lymph # (Auto) [place] # (Auto) Eos # (Auto) Baso # (Auto) WBC Differential Differential Comment PT INR APTT Sodium Potassium Chloride Carbon Dioxide Anion Gap BUN Creatinine Estimated GFR Random Glucose Calcium Total Bilirubin AST ALT Alkaline Phosphatase Total Protein Albumin Lipase Urine Color Yellow Urine Clarity Clear Urine pH 5.0 Ur Specific [place] 1.048 H Urine Protein Negative Urine Glucose (UA) Negative Urine Ketones Negative Urine Occult Blood Negative Urine Nitrate Negative Urine Bilirubin Negative Urine Urobilinogen Less than 2 Ur Leukocyte Esterase Small H Urine RBC Less than 1 Urine WBC 1 Ur Squamous Epith Cells 3 Urine Mucus Few H Micro UA Comment Culture not ind Urine Culture Comments Culture not ind Blood Type AB Positive Blood Type Recheck Required Antibody Screen Negative - Imaging Impressions Abdomen/Pelvis CT 12/24/17 00:00 CONCLUSION: 1. Abnormal severe dilatation of the cecum, ascending colon, transverse colon, and descending colon. A similar pattern was present on the study from June 2015, however, the colon is more severely distended on the current examination. There is also a left inguinal hernia containing a portion of the sigmoid colon which could be the cause or at least contributing to this finding. 2. No other acute finding is identified in the abdomen or pelvis. <Sinai Jones - Last Filed: 12/24/17 17:06> Assessment and Plan - Plan [place] syndrome, morbidly obese male admitted to the hospital on 12/23/2017 with diffuse abdominal distention worse over the past couple of days but gradual onset for the past few months according to the patient. Patient states last EGD colonoscopy 7-8 years ago but unknown findings. Patient states no previous EGD that he remembers. No family history of colon cancer Patient denies any current symptoms of nausea vomiting constipation or abdominal pain. He does note some diarrhea for the last few months but thought that it might be his medicines. Gastroenterology consulted to assist with his abdominal distention and megacolon. CT scan showed severe abdominal dilation of the cecum and ascending transverse and descending colon similar to the previous study in June 2015 but worsened at this time. Patient does have a left inguinal hernia containing a portion of the sigmoid colon which could be causing or contributing to some of the findings. General surgery has been consulted to assist in his care. Thank you for this consult History of GERD nausea vomiting 12/24/17 Colonoscopy with decompression was performed today without any complications. Patient had dilated right colon aggressive suctioning and decompression was performed. Improvement in abdominal distention. Internal hemorrhoids small external hemorrhoids and tight anal sphincter were seen. Rectal tube was placed during colonoscopy. Will consider anal manometry as an outpatient. If patient is not better consider colonoscopy. Plan Diet recommend clear liquid for now Bowel regimen trial of Relistor Lactulose Monitor labs Supportive care Further recommendations to follow Patient was seen per myself and Dr. Jones, this note was written on her behalf <Becca Lynne - Last Filed: 12/24/17 14:34> - Attending Attestation seen, examined agree with above <Sinai Jones - Last Filed: 12/24/17 17:06>
[2017-12-24] MEDS: Methylnaltrexone Inj 12 MG/0.6 ML Vial SQ SCH (16:52)
[2017-12-24] MEDS: QUEtiapine 100 MG Tablet PO SCH (21:57)
[2017-12-25 07:33] LABS: Baso % (Auto) 0.8 % (0.0-2.0); Eos # (Auto) 0.3 th/mm3 (0.0-0.4); Eos % (Auto) 6.1 % (0.0-4.0); Hematocrit 38.4 % (39.0-51.0); Hemoglobin 12.7 gm/dL (13.0-17.0); Lymph # (Auto) 0.7 th/mm3 (1.0-4.8); Lymph % (Auto) 12.8 % (9.0-44.0); Mean Corpuscular Hemoglobin 29.5 pg (27.0-34.0); Mean Corpuscular Volume 89.6 fL (80.0-100.0); Mean Platelet Volume 7.7 fL (7.0-11.0); Mono # (Auto) 0.6 th/mm3 (0.0-0.9); Mono % (Auto) 11.1 % (0.0-8.0); Neut # (Auto) 3.5 th/mm3 (1.8-7.7); Neut % (Auto) 69.2 % (16.0-70.0); Platelet Count 174 th/mm3 (150-450); Red Blood Count 4.29 mil/mm3 (4.50-5.90); Red Cell Distribution Width 14.8 % (11.6-17.2); White Blood Count 5.1 th/mm3 (4.0-11.0)
[2017-12-25 07:56] LABS: Anion Gap 7 meq/L (5-15); Blood Urea Nitrogen 13 mg/dL (7-18); Calcium 8.1 mg/dL (8.5-10.1); Chloride 110 meq/L (98-107); Glomerular Filtration Rate Greater Than 89 mL/min (>89); Glucose,Random 76 mg/dL (74-106); Potassium 3.8 meq/L (3.5-5.1); Sodium 142 meq/L (136-145)
[2017-12-25] MEDS: Furosemide 20 MG Tablet PO SCH ×2 (07:59→21:42)
[2017-12-25] MEDS: Meloxicam 15 MG Tablet PO SCH (08:00)
[2017-12-25] MEDS: Duloxetine 60 MG DR Capsule PO SCH (08:02)
[2017-12-25] MEDS: Levothyroxine 50 MCG Tablet PO SCH (08:02)
[2017-12-25] MEDS: Gabapentin 300 MG Capsule PO SCH ×3 (08:03→18:02)
[2017-12-25] MEDS: buPROPion 150 MG 12 HR Tablet PO SCH (08:03)
[2017-12-25] MEDS: Spironolactone 25 MG Tablet PO SCH (08:03)
[2017-12-25] MEDS: Pantoprazole Sodium 20 MG DR Tablet PO SCH (08:04)
[2017-12-25] MEDS: Methylnaltrexone Inj 12 MG/0.6 ML Vial SQ SCH (08:05)
[2017-12-25] MEDS: Morphine Inj 4 MG/ML Vial IV.PUSH PRN ×2 (13:51→21:42)
--- NOTE | 2017-12-25 15:45 | P.PNGI ---
Subjective Interval history: Pt is sitting in wheel chair, wants to go home, moving his bowels, no nausea or vomiting, doesn't want any invasive procedures Physical Exam Vital signs: Vital Signs 12/24/17 16:00 12/24/17 20:00 12/25/17 00:00 Temperature 97.7 F 98.4 F 98.6 F Pulse Rate 96 H 89 83 Respiratory Rate 18 21 21 Blood Pressure 138/80 167/91 H 130/80 Pulse Oximetry 99 99 95 12/25/17 00:50 12/25/17 04:00 12/25/17 08:00 Temperature 97.7 F 97.4 F L Pulse Rate 85 82 Respiratory Rate 20 20 22 Blood Pressure 111/66 115/61 Pulse Oximetry 97 96 12/25/17 12:00 Temperature 98.4 F Pulse Rate 81 Respiratory Rate 21 Blood Pressure 137/80 Pulse Oximetry 96 Intake & Output 12/24/17 12/25/17 12/25/17 18:59 06:59 18:59 Intake Total 800 / 800 240 / 240 Balance 800 / 800 240 / 240 Weight 138 kg Intake: Oral 240 / 240 Anesthesia Amount 800 / 800 Other: Date of Last Bowel Movement 12/25/17 - Constitutional no acute distress - Routine HEENT Exam Head: Present: normocephalic - Routine Respiratory Exam Present: CTA bilaterally - Routine Cardiovascular Exam Present: RRR - Routine Abdominal Exam Present: normoactive bowel sounds. Absent: tenderness Comments: obese - Routine Skin Exam Present: intact, dry. Absent: jaundice - Routine Neurological Exam Present: alert, oriented X3 Results - Labs CBC & Chem 7: 12/25/17 06:50 12/25/17 06:50 Laboratory Results - last 24 hr 12/25/17 12/25/17 12/25/17 04:00 06:50 06:50 WBC 5.1 RBC 4.29 L Hgb 12.7 L Hct 38.4 L MCV 89.6 MCH 29.5 MCHC 33.0 RDW 14.8 Plt Count 174 MPV 7.7 Neut % (Auto) 69.2 Lymph % (Auto) 12.8 Lucas % (Auto) 11.1 H Eos % (Auto) 6.1 H Baso % (Auto) 0.8 Neut # (Auto) 3.5 Lymph # (Auto) 0.7 L Lucas # (Auto) 0.6 Eos # (Auto) 0.3 Baso # (Auto) 0.0 WBC Differential . Differential Comment Auto diff final Sodium 142 Potassium 3.8 Chloride 110 H Carbon Dioxide 25.0 Anion Gap 7 BUN 13 Creatinine 0.64 Estimated GFR Greater than 89 Random Glucose 76 Calcium 8.1 L Stl C.difficile Tox PCR Negative St C. diff Tox Epid 027 Negative Assessment and Plan - Plan [place] syndrome, morbidly obese male admitted to the hospital on 12/23/2017 with diffuse abdominal distention worse over the past couple of days but gradual onset for the past few months according to the patient. Patient states last EGD colonoscopy 7-8 years ago but unknown findings. Patient states no previous EGD that he remembers. No family history of colon cancer Patient denies any current symptoms of nausea vomiting constipation or abdominal pain. He does note some diarrhea for the last few months but thought that it might be his medicines. Gastroenterology consulted to assist with his abdominal distention and megacolon. CT scan showed severe abdominal dilation of the cecum and ascending transverse and descending colon similar to the previous study in June 2015 but worsened at this time. Patient does have a left inguinal hernia containing a portion of the sigmoid colon which could be causing or contributing to some of the findings. General surgery has been consulted to assist in his care. Thank you for this consult History of GERD nausea vomiting 12/24/17 Colonoscopy with decompression was performed today without any complications. Patient had dilated right colon aggressive suctioning and decompression was performed. Improvement in abdominal distention. Internal hemorrhoids small external hemorrhoids and tight anal sphincter were seen. Rectal tube was placed during colonoscopy. Will consider anal manometry as an outpatient. If patient is not better consider colonoscopy. 12/25/17 Pt wants to go home, moving his bowels, no nausea or vomiting, no abd pain, Plan Advance diet KUB later today Can go home tomorrow morning if he does good with diet and pending KUB Lactulose Monitor labs Supportive care Further recommendations to follow Patient was seen per myself and Dr. Jones, this note was written on her behalf
--- NOTE | 2017-12-25 16:00 | P.PN ---
Physical Exam Vital signs: Vital Signs 12/24/17 16:00 12/24/17 20:00 12/25/17 00:00 Temperature 97.7 F 98.4 F 98.6 F Pulse Rate 96 H 89 83 Respiratory Rate 18 21 21 Blood Pressure 138/80 167/91 H 130/80 Pulse Oximetry 99 99 95 12/25/17 00:50 12/25/17 04:00 12/25/17 08:00 Temperature 97.7 F 97.4 F L Pulse Rate 85 82 Respiratory Rate 20 20 22 Blood Pressure 111/66 115/61 Pulse Oximetry 97 96 12/25/17 12:00 Temperature 98.4 F Pulse Rate 81 Respiratory Rate 21 Blood Pressure 137/80 Pulse Oximetry 96 Intake & Output 12/24/17 12/25/17 12/25/17 18:59 06:59 18:59 Intake Total 800 / 800 240 / 240 Balance 800 / 800 240 / 240 Weight 138 kg Intake: Oral 240 / 240 Anesthesia Amount 800 / 800 Other: Date of Last Bowel Movement 12/25/17 Results - Labs CBC & Chem 7: 12/25/17 06:50 12/25/17 06:50 Laboratory Results - last 24 hr 12/25/17 12/25/17 12/25/17 04:00 06:50 06:50 WBC 5.1 RBC 4.29 L Hgb 12.7 L Hct 38.4 L MCV 89.6 MCH 29.5 MCHC 33.0 RDW 14.8 Plt Count 174 MPV 7.7 Neut % (Auto) 69.2 Lymph % (Auto) 12.8 Kern % (Auto) 11.1 H Eos % (Auto) 6.1 H Baso % (Auto) 0.8 Neut # (Auto) 3.5 Lymph # (Auto) 0.7 L Kern # (Auto) 0.6 Eos # (Auto) 0.3 Baso # (Auto) 0.0 WBC Differential . Differential Comment Auto diff final Sodium 142 Potassium 3.8 Chloride 110 H Carbon Dioxide 25.0 Anion Gap 7 BUN 13 Creatinine 0.64 Estimated GFR Greater than 89 Random Glucose 76 Calcium 8.1 L Stl C.difficile Tox PCR Negative St C. diff Tox Epid 027 Negative Assessment and Plan - Plan Subjective Patient says he feels a little bit better today. Still with abdominal distention not getting better. Pain is controlled. Had a bowel movement diarrhea mainly, rectal tube does not stay in place discussed with the nurse and was removed. He had minimal bowel movements today. No fever or chills. No nausea or vomiting. Physical exam Gen. appearance: 62-year-old male is in chair, protruded abdomen, in no acute distress Cardiovascular: Regular rate and rhythm. No murmurs, rubs or gallops. Respiratory: Lungs clear to auscultation bilaterally. No wheezes or rhonchi. Abdomen: Distended. Nontender to palpation. Hypoactive bowel sounds. Musculoskeletal: No gross deformities. No edema. Skin: Chronic lower extremity skin changes Neuro: Sensory and motor grossly intact. Cranial nerves II through XII grossly intact. Assessment and Plan 1. Abdominal distention CT of the abdomen/pelvis significant for transverse colon measuring 15 cm with abnormal severe dilation of the whole colon. Left inguinal hernia containing a portion of the sigmoid colon which may be contributing. Concern for toxic megacolon versus [place]'s syndrome Gastroenterology consulted, appreciate recommendations General surgery consulted, appreciate recommendations. Discussed with Dr. Armas general surgery. If needs recommends colorectal surgeon if GI considers surgical involvement. Add simethicone 2. Hypertension Continue home nifedipine 3. CHF Continue home Lasix and spironolactone 4. Ascites/depression Continue home medications FEN N.p.o. Electrolytes: Monitor and replete as needed Holding pharmacologic anticoagulation for possible intervention
--- NOTE | 2017-12-25 16:23 | XR ---
EXAM DATE: 12/25/2017 4:19 PM EDT AGE/SEX: 62 years / Male INDICATIONS: Abdominal distention. CLINICAL DATA: This is the patient's initial encounter. Patient reports that signs and symptoms have been present for 4 - 6 days and indicates a pain score of 7/10. MEDICAL/SURGICAL HISTORY: Gastroesophageal reflux disease. Hypertension. Gastric bypass. [place] [facility] [place] 12/24/2017. . FINDINGS: There continues to be diffuse prominent distention of the colon with air. This appears to involve the entire colon. There are a few mildly dilated loops of small bowel with air. These findings are not s ignificantly changed compared to the recent CT scan from 12/24/2017. No definite free air is seen. CONCLUSION: There continues to be prominent diffuse distention of the colon with air without significant change c ompared to the prior CT scan. Electronically signed by: Robin Mittal MD 12/25/2017 4:21 PM EDT
[2017-12-25] MEDS: QUEtiapine 100 MG Tablet PO SCH (21:42)
[2017-12-26] MEDS: Morphine Inj 4 MG/ML Vial IV.PUSH PRN (04:28)
[2017-12-26] MEDS: Levothyroxine 50 MCG Tablet PO SCH (06:33)
--- NOTE | 2017-12-26 08:35 | P.PN ---
Physical Exam Vital signs: Vital Signs 12/25/17 12:00 12/25/17 16:00 12/25/17 20:00 Temperature 98.4 F 98 F 98.4 F Pulse Rate 81 80 80 Respiratory Rate 21 20 17 Blood Pressure 137/80 129/70 138/82 Pulse Oximetry 96 96 98 12/26/17 00:00 12/26/17 04:00 Temperature 98.3 F 98.7 F Pulse Rate 78 80 Respiratory Rate 16 17 Blood Pressure 132/78 135/79 Pulse Oximetry 98 97 Intake & Output 12/25/17 12/26/17 12/26/17 18:59 06:59 18:59 Intake Total 800 / 800 900 / 900 Balance 800 / 800 900 / 900 Weight 138 kg Intake: Oral 800 / 800 900 / 900 Other: # Voids 2 Date of Last Bowel Movement 12/24/17 # Bowel Movements 1 Results - Labs CBC & Chem 7: 12/25/17 06:50 12/25/17 06:50 Laboratory Results - last 24 hr 12/25/17 06:50 TSH 2.110 - Imaging Impressions Abdomen X-Ray 12/25/17 00:00 CONCLUSION: There continues to be prominent diffuse distention of the colon with air without significant change compared to the prior CT scan. Assessment and Plan - Plan Subjective Patient's much better today had a bowel movement in the morning. No more diarrhea. No fever or chills. No abdominal pain. Still some distention however he is improved. He had minimal bowel movements today. No nausea or vomiting. Wants to go back to half-way facility. Physical exam Gen. appearance: 62-year-old male is in chair, protruded abdomen, in no acute distress Cardiovascular: Regular rate and rhythm. No murmurs, rubs or gallops. Respiratory: Lungs clear to auscultation bilaterally. No wheezes or rhonchi. Abdomen: Distended. Nontender to palpation. Hypoactive bowel sounds. Musculoskeletal: No gross deformities. No edema. Skin: Chronic lower extremity skin changes Neuro: Sensory and motor grossly intact. Cranial nerves II through XII grossly intact. Assessment and Plan 1. Abdominal distention CT of the abdomen/pelvis significant for transverse colon measuring 15 cm with abnormal severe dilation of the whole colon. Left inguinal hernia containing a portion of the sigmoid colon which may be contributing. Concern for toxic megacolon versus [place]'s syndrome Gastroenterology consulted, appreciate recommendations General surgery consulted, appreciate recommendations. Discussed with Dr. Armas general surgery. If needs recommends colorectal surgeon if GI considers surgical involvement. Add simethicone 2. Hypertension Continue home nifedipine 3. CHF Continue home Lasix and spironolactone 4. Ascites/depression Continue home medications Patient improved significantly he is cleared by GI for discharge. Also discussed with Dr. Armas general surgery will sign off. Patient to follow-up with colorectal surgery as outpatient.
[2017-12-26] MEDS: Spironolactone 25 MG Tablet PO SCH (11:16)
[2017-12-26] MEDS: Meloxicam 15 MG Tablet PO SCH (11:16)
[2017-12-26] MEDS: Gabapentin 300 MG Capsule PO SCH ×3 (11:16→17:53)
[2017-12-26] MEDS: buPROPion 150 MG 12 HR Tablet PO SCH (11:16)
[2017-12-26] MEDS: Duloxetine 60 MG DR Capsule PO SCH (11:16)
[2017-12-26] MEDS: Furosemide 20 MG Tablet PO SCH (11:16)
[2017-12-26] MEDS: Pantoprazole Sodium 20 MG DR Tablet PO SCH (11:16)
[2017-12-26] MEDS: Methylnaltrexone Inj 12 MG/0.6 ML Vial SQ SCH (11:17)
--- NOTE | 2017-12-26 15:04 | P.PNGI ---
Subjective Interval history: Pt is sitting in wheel chair in nursing station, wants to go home, states he is not in any kind of stress, moving his bowels, not having pain or N/V. <Bryson Penny - Last Filed: 12/26/17 15:28> Physical Exam Vital signs: Vital Signs 12/25/17 16:00 12/25/17 20:00 12/26/17 00:00 Temperature 98 F 98.4 F 98.3 F Pulse Rate 80 80 78 Respiratory Rate 20 17 16 Blood Pressure 129/70 138/82 132/78 Pulse Oximetry 96 98 98 12/26/17 04:00 12/26/17 08:00 12/26/17 12:00 Temperature 98.7 F 98.7 F 97.8 F Pulse Rate 80 77 96 H Respiratory Rate 17 20 21 Blood Pressure 135/79 128/80 152/94 H Pulse Oximetry 97 94 L 96 Intake & Output 12/25/17 12/26/17 12/26/17 18:59 06:59 18:59 Intake Total 800 / 800 900 / 900 Balance 800 / 800 900 / 900 Weight 138 kg Intake: Oral 800 / 800 900 / 900 Other: # Voids 2 Date of Last Bowel Movement 12/24/17 12/26/17 # Bowel Movements 1 - Constitutional no acute distress - Routine HEENT Exam Head: Present: normocephalic - Routine Respiratory Exam Present: CTA bilaterally - Routine Cardiovascular Exam Present: RRR - Routine Abdominal Exam Present: normoactive bowel sounds, distended, firm - Routine Extremities Exam Present: edema. Absent: cyanosis, clubbing - Routine Skin Exam Present: intact, dry. Absent: jaundice - Routine Neurological Exam Present: alert, oriented X3 <Bryson Penny - Last Filed: 12/26/17 15:28> Vital signs: Vital Signs 12/25/17 20:00 12/26/17 00:00 12/26/17 04:00 Temperature 98.4 F 98.3 F 98.7 F Pulse Rate 80 78 80 Respiratory Rate 17 16 17 Blood Pressure 138/82 132/78 135/79 Pulse Oximetry 98 98 97 12/26/17 08:00 12/26/17 12:00 Temperature 98.7 F 97.8 F Pulse Rate 77 96 H Respiratory Rate 20 21 Blood Pressure 128/80 152/94 H Pulse Oximetry 94 L 96 Intake & Output 12/25/17 12/26/17 12/26/17 18:59 06:59 18:59 Intake Total 800 / 800 900 / 900 Balance 800 / 800 900 / 900 Weight 138 kg Intake: Oral 800 / 800 900 / 900 Other: # Voids 2 Date of Last Bowel Movement 12/24/17 12/26/17 # Bowel Movements 1 <Sinai Jones - Last Filed: 12/26/17 16:52> Results - Labs CBC & Chem 7: 12/25/17 06:50 12/25/17 06:50 Laboratory Results - last 24 hr 12/25/17 06:50 TSH 2.110 - Imaging Impressions Abdomen X-Ray 12/25/17 00:00 CONCLUSION: There continues to be prominent diffuse distention of the colon with air without significant change compared to the prior CT scan. <Bryson Penny - Last Filed: 12/26/17 15:28> - Labs CBC & Chem 7: 12/25/17 06:50 12/25/17 06:50 Laboratory Results - last 24 hr 12/25/17 06:50 TSH 2.110 <Sinai Jones - Last Filed: 12/26/17 16:52> Assessment and Plan - Plan [place] syndrome, morbidly obese male admitted to the hospital on 12/23/2017 with diffuse abdominal distention worse over the past couple of days but gradual onset for the past few months according to the patient. Patient states last EGD colonoscopy 7-8 years ago but unknown findings. Patient states no previous EGD that he remembers. No family history of colon cancer Patient denies any current symptoms of nausea vomiting constipation or abdominal pain. He does note some diarrhea for the last few months but thought that it might be his medicines. Gastroenterology consulted to assist with his abdominal distention and megacolon. CT scan showed severe abdominal dilation of the cecum and ascending transverse and descending colon similar to the previous study in June 2015 but worsened at this time. Patient does have a left inguinal hernia containing a portion of the sigmoid colon which could be causing or contributing to some of the findings. General surgery has been consulted to assist in his care. Thank you for this consult History of GERD nausea vomiting 12/24/17 Colonoscopy with decompression was performed today without any complications. Patient had dilated right colon aggressive suctioning and decompression was performed. Improvement in abdominal distention. Internal hemorrhoids small external hemorrhoids and tight anal sphincter were seen. Rectal tube was placed during colonoscopy. Will consider anal manometry as an outpatient. If patient is not better consider colonoscopy. 12/25/17 Pt wants to go home, moving his bowels, no nausea or vomiting, no abd pain, 12/26/17 Clinically pt is doing good, moving his bowels, no pain, no N/V Abdomen X-Ray 12/25/17 00:00 CONCLUSION: There continues to be prominent diffuse distention of the colon with air without significant change compared to the prior CT scan. Plan BENITEZ Ok to go home F/u with CRS, ideally would benefit from colostomy F/u with psych, cont. meds cont bowel regimen Supportive care Further recommendations to follow Patient was seen per myself and Dr. Jones, this note was written on her behalf <Bryson Penny - Last Filed: 12/26/17 15:28> - Attending Attestation seen, examined agree with above <Sinai Jones - Last Filed: 12/26/17 16:52>
--- NOTE | 2017-12-26 15:14 | P.DS ---
Date of admission: 12/24/17 02:34 Primary care physician: UNKNOWN Brief History from admission: 62-year-old male with a past medical history significant for hypertension, anxiety/depression, MU and GERD presents to the emergency department for evaluation of abdominal distention. The patient reports that for the past 2 days his abdomen has become distended and hard. He denies any associated pain. No fevers/chills. No nausea/vomiting. He reports continuous diarrhea for months. DS: Summary Hospital Course: Gen. appearance: 62-year-old male is in chair, protruded abdomen, in no acute distress Cardiovascular: Regular rate and rhythm. No murmurs, rubs or gallops. Respiratory: Lungs clear to auscultation bilaterally. No wheezes or rhonchi. Abdomen: Distended. Nontender to palpation. Hypoactive bowel sounds. Musculoskeletal: No gross deformities. No edema. Skin: Chronic lower extremity skin changes Neuro: Sensory and motor grossly intact. Cranial nerves II through XII grossly intact. Assessment and Plan 1. Abdominal distention CT of the abdomen/pelvis significant for transverse colon measuring 15 cm with abnormal severe dilation of the whole colon. Left inguinal hernia containing a portion of the sigmoid colon which may be contributing. Concern for toxic megacolon versus [place]'s syndrome Gastroenterology consulted, appreciate recommendations General surgery consulted, appreciate recommendations. Discussed with Dr. Armas general surgery. If needs recommends colorectal surgeon if GI considers surgical involvement. Add simethicone 2. Hypertension Continue home nifedipine 3. CHF Continue home Lasix and spironolactone 4. Ascites/depression Continue home medications Patient improved significantly he is cleared by GI for discharge. Also discussed with Dr. Armas general surgery will sign off. Patient to follow-up with colorectal surgery as outpatient. - Time Spent with Patient Total time spent providing and/or coordinating discharge services: Greater than 30 minutes - Quality: VTE Deep Vein Thrombosis/Pulmonary Embolism Present on Admission: No Exam Vital signs: Vital Signs 12/25/17 16:00 12/25/17 20:00 12/26/17 00:00 Temperature 98 F 98.4 F 98.3 F Pulse Rate 80 80 78 Respiratory Rate 20 17 16 Blood Pressure 129/70 138/82 132/78 Pulse Oximetry 96 98 98 12/26/17 04:00 12/26/17 08:00 12/26/17 12:00 Temperature 98.7 F 98.7 F 97.8 F Pulse Rate 80 77 96 H Respiratory Rate 17 20 21 Blood Pressure 135/79 128/80 152/94 H Pulse Oximetry 97 94 L 96 Intake & Output 12/25/17 12/26/17 12/26/17 18:59 06:59 18:59 Intake Total 800 / 800 900 / 900 Balance 800 / 800 900 / 900 Weight 138 kg Intake: Oral 800 / 800 900 / 900 Other: # Voids 2 Date of Last Bowel Movement 12/24/17 12/26/17 # Bowel Movements 1 Results Procedures completed during hospitalization: No procedures Labs on day of discharge: Labs from last 24 hours 12/25/17 12/25/17 18:13 06:50 Thiamine Pending TSH 2.110 - Impressions ITS Impressions Abdomen/Pelvis CT 12/24/17 00:00 CONCLUSION: 1. Abnormal severe dilatation of the cecum, ascending colon, transverse colon, and descending colon. A similar pattern was present on the study from June 2015, however, the colon is more severely distended on the current examination. There is also a left inguinal hernia containing a portion of the sigmoid colon which could be the cause or at least contributing to this finding. 2. No other acute finding is identified in the abdomen or pelvis. Abdomen X-Ray 12/25/17 00:00 CONCLUSION: There continues to be prominent diffuse distention of the colon with air without significant change compared to the prior CT scan. Discharge Plan - Discharge Disposition Patient Disposition: 03 Discharge to SNF - Discharge Condition Condition: Stable - Discharge Order Discharge Orders: Discharge Order (Routine); Ordered 12/26/17 Ordered By: Sharyn Lorenzo - Discharge Details Anticipated Discharge Date: 12/26/17 - Physicians Team Primary Care Provider: UNKNOWN, Attending Provider: Sharyn Lorenzo Other Providers: Sinai Jones MD ; Eric Duarte MD
== END 2017-12-26 18:10 ==
LOC: NEPD 19:52 → NEDA 12-24 02:34 → N05 12-24 05:38
PROVIDERS: ADMIT Hospitalist; ATTEND Hospitalist
PROC: COLONOS (2017-12-24 11:32)